=== PATIENT | male | born 1985 | race Caucasian/White ===

== ENCOUNTER 2020-06-26 17:48 | Emergency (ER) | payer MEDICAID, SELFPAY ==
[2020-06-26 17:56] VITALS: BP 128/73; BP 136/70; PULSE 133; PULSE 138; RESP 14; TEMP 36.6; O2SAT 91; O2SAT 98; BMI 28.4
[2020-06-26 18:03] VITALS: BP 128/73; PULSE 133; RESP 14; TEMP 36.6; O2SAT 91
--- NOTE | 2020-06-26 18:32 | ED_ITS ---
HPI - General Adult General Chief complaint: Overdose Stated complaint: ?OVERDOSE,FOUND OUTSIDE Time Seen by Provider: 06/26/20 18:18 Source: patient and RN notes reviewed Mode of arrival: EMS Limitations: no limitations History of Present Illness HPI narrative: 34-year-old male who was brought to the emergency department for evaluation of altered mental status. The patient states that he lives in shaking pain he came to [facility] to get some drugs. He states that he smoked crack cocaine and used 4 bags of heroin. The person that he was with got concerned that the patient passed out and appeared to be unresponsive so he called 911. The patient who activated 911 did not stay on the scene but did point to the 1st responders in the direction of where the patient was passed out. The patient was lethargic but arousable, he did not receive any Narcan from the 1st responders and it is unclear if he received any Narcan from the witness on the scene. The patient states that he has a history bingeing poly substances including heroin and cocaine. He states that he has not used heroin in over 8 years. At the time of my evaluation, the patient is awake but slightly lethargic, he was able to answer questions without any difficulty. He had no respiratory distress, he was tachycardic. Related Data Allergies Allergy/AdvReac Type Severity Reaction Status Date / Time No Known Allergies Allergy Verified 06/26/20 18:38 Review of Systems Review of Systems: Yes all other systems are reviewed and are negative Neurologic: Reports Abnormal speech present [facility] Past Medical History [facility] Narrative: Past medical history significant for testicular cancer with right orchiectomy, no chemotherapy, hepatitis-C treated in the past, cholecystectomy. The patient states that he does smoke 1/2 pack of cigarettes per day times 16 years, he occasionally drinks alcohol and had a very small amount of alcohol to drink today, he does use drugs, heroin and cocaine. Social History Social History Alcohol intake: current Smoking Status: Current every day smoker Use of substances other than those prescribed or required for medical reasons: Yes Substance Use Type: Crack/Cocaine and Heroin Substance Use Frequency: Daily Advance Directives: No Advance Directives Information Provided: Yes Physical Exam Vital Signs: Vital Signs: Last Vital Signs Temp 98.2 F 06/26/20 21:30 Pulse 108 H 06/26/20 21:30 Resp 13 06/26/20 21:30 BP 113/70 06/26/20 21:30 Pulse Ox 98 06/26/20 21:30 Body Mass Index 28.4 Const: General: cooperative and intoxicated appearing (Patient appears high and slightly lethargic) Nutritional Appearance: well nourished Orientation/consciousness: oriented to person and oriented to place Limitations: no limitations HENMT: Head: Yes normal to inspection, Yes normocephalic and Yes atraumatic Ears: external ears normal General nose exam: Normal external nose present Face and sinus: Yes normal facial exam Mouth: Normal oral and palatal mucosa present Throat: Yes posterior oropharynx normal Eyes: Periorbital: periorbital findings normal Eyelids: Yes eyelids normal Conjunctivae: conjunctivae normal Sclerae: sclerae normal Corneas: corneas normal Pupils: Equal, round and reactive pupils present Direct Ophthalmoscopy: normal light reflex Neck: Neck: Yes full ROM, Yes no lymphadenopathy, Yes no meningeal signs, Yes trachea midline and Yes supple Chest: Chest palpation & inspection: normal inspection of the chest and normal palpation of entire chest wall Resp: Effort & Inspection: normal respiratory effort and able to speak in complete sentences Auscultation: clear to auscultation bilaterally Cardio: Rate: regular rate and tachycardic Rhythm: regular rhythm Heart sounds: S1 normal heart sound present, S2 normal heart sound present and no murmurs GI: Inspection: Yes normal to inspection Palpation (GI): Soft to palpation, nontender, no guarding, not rigid and No hepatosplenomegaly present : General: Yes no CVA tenderness Back/Spine/Pelvis: Back: no CVA tenderness Cervical Spine: normal cervical lordosis Thoracic/Lumbar Spine: thoracic and lumbar spine normal to inspection Skin: Lesions: no lesions Rashes: no rashes Wounds: no wounds Neuro: General: oriented to person, oriented to place and no meningeal signs Cranial nerves: Yes CN's II-XII intact bilaterally and Yes Equal, round and reactive pupils present Cognition (Neuro): normal cognition Speech: Abnormal speech present Motor exam (neuro): 5/5 motor strength present throughout Extrem: General: Yes normal to inspection and Yes full ROM Psych: Appearance: well kempt Mental Status: mental status grossly normal Speech and movement: Normal speech and movement present Affect: Other affect and mood findings present (Appears high from narcotics) Attitude: cooperative Thought process: Normal thought process present Thought content: Normal thought content present Course Course Course Narrative: 34-year-old male with a history of polysubstance abuse who was brought to the emergency department for evaluation of altered level of consciousness after using crack cocaine and injecting 4 bags of heroin. The patient appears high, is slightly lethargic but was able to answer questions without any difficulty. The patient will be monitored here in the emergency department for 2-4 hours until he metabolized his the drugs that he took prior to coming to the emergency department. 5: The patient is awake and alert, I did contact the patient's mother and she states that she can come and pick the patient up. The patient will be discharged in the care of his mother. The patient's mother also stated that the patient can pay for a cab home if she is unable to pick him up which I think is appropriate as well. Discharge Plan Discharge Clinical Impression: Cocaine use disorder, Opiate abuse, episodic Opiate overdose Qualifiers: Encounter type: initial encounter Injury intent: accidental or unintentional Qualified Code(s): T40.601A - Poisoning by unspecified narcotics, accidental (unintentional), initial encounter Patient Disposition: Home, Self-Care Instructions: Narcotic Use Disorder (ED) Additional Instructions: Based on what happened to you today, I suspect that you may have accidentally overdosed on too much heroin or you may have gotten fentanyl instead of heroin. You did not receive any Narcan today by the emergency department or by the 1st responders. We are sending you home with intranasal Narcan, please read the instructions, if you decide to use narcotics again you should make sure you bring the Narcan with you and make sure that there is someone around who is sober/not using drugs and can admimister the intra Narcan in the event that you would stop breathing. We observed you for approximately 4 hours and at this time your sober/awake enough to go home. You were seen by one of our crisis/addiction coaches and they did give you information to follow up with in the event that you want to get some help with your narcotic use disorder. Follow-up with your doctor in 2 days. Please return to the emergency department if your symptoms get worse or if you develop any symptoms that are concerning to you.
--- NOTE | 2020-06-26 18:32 | MHC.RECOVSUP ---
? Reason for consult: Overdose o Current location: ED5 o Identified substance use concern: Heroin - Support ? Intervention: o Community resources provided o Harm reduction discussion ? Plan: o Patient to follow up with HF after discharge ? Additional information: Patient came to the ED For a OD. Patient stated that he was clean for 6 years and relapse and he goes to meeting on zoom but its not enough. Patient refused MAT But was very interested in [facility] and [facility].
[2020-06-26 18:39] VITALS: BP 116/85; PULSE 124; RESP 14; TEMP 36.8; O2SAT 98
[2020-06-26 20:34] VITALS: BP 109/71; PULSE 109; RESP 15; O2SAT 97
[2020-06-26 21:30] VITALS: BP 113/70; PULSE 108; RESP 13; TEMP 36.8; O2SAT 98
[2020-06-26] MEDS: Naloxone HCl Nasal TAKE HOME 4 MG SPRAY NOSTRILALT (21:54)
--- NOTE | 2020-06-26 22:34 | PC.NURSE ---
all cardiac equipment removed. piv discontinued. awaiting a ride. given narcan for home and discharge aurea
== END 2020-06-27 00:42 | disposition home or self-care (01) ==
PROVIDERS: Emergency Provider Emergency Medicine Emergency Medical Services; PCP Family Medicine
DX: T40.601A Poisoning by unspecified narcotics, accidental (unintentional), initial encounter (principal); R40.4 Transient alteration of awareness; Y92.410 Unspecified street and highway as the place of occurrence of the external cause; F14.10 Cocaine abuse, uncomplicated; F11.10 Opioid abuse, uncomplicated; F17.210 Nicotine dependence, cigarettes, uncomplicated; Z85.47 Personal history of malignant neoplasm of testis
CPT/HCPCS: 99284; 99285

== ENCOUNTER 2022-03-12 08:33 | Outpatient (REF) | payer OTHER, SELFPAY ==
--- NOTE | ~2022-03-12 | US_ITS ---
EXAMINATION: US ABDOMEN COMPLETE CLINICAL INFORMATION: Right-sided abdominal pain. COMPARISON: None TECHNIQUE: Real-time imaging of the abdominal viscera. FINDINGS: PANCREAS: Visualized portions unremarkable ABDOMINAL AORTA: Visualized portions unremarkable. INFERIOR VENA CAVA: Visualized portions unremarkable. LIVER: Unremarkable. GALLBLADDER: Status post cholecystectomy. COMMON BILE DUCT: Common hepatic duct measures up to 0.7 cm. The visualized common bile duct measures up to 0.3 cm. No intraluminal abnormality. RIGHT KIDNEY: 9.9 cm. Unremarkable. LEFT KIDNEY: 10.5 cm. Unremarkable. SPLEEN: 10.4 cm. Unremarkable. FREE FLUID: None. US/US abdomen complete IMPRESSION: Unremarkable abdominal ultrasound in a patient status post cholecystectomy.
== END 2022-03-12 08:34 | disposition home or self-care (01) ==
LOC: HO.HMGCX 08:33
PROVIDERS: PCP Nurse Practitioner Family; Visit Provider Nurse Practitioner Family
DX: R10.31 Right lower quadrant pain (principal)
CPT/HCPCS: 76700

== ENCOUNTER 2023-04-15 09:50 | Outpatient (AMB) | payer OTHER, SELFPAY ==
[2023-04-15 09:51] VITALS: BP 122/70; PULSE 82; O2SAT 100; BMI 25.5
--- NOTE | 2023-04-15 09:51 | MHC.PC.OV ---
Vital Signs 04/15/23 09:51 Height 5 ft 6 in Weight 158 lb BMI 25.5 BP 122/70 Blood Pressure Location Lt brachial Position Sitting Pulse 82 Pulse Source Pulse Oximeter Pulse Oximetry (%) 100 Oxygen Delivery Method Room Air Intake Visit Reasons: Annual Exam Intake Note: Patient is here today for a physical. Software [employer] Required: No Allergies codiene Allergy (Severe, Uncoded 04/15/23 10:11) Stomach Upset Medication List - Last Reconciled 04/15/23 by VINNIE Cuellar buprenorphine ER (Sublocade) mg subcut .monthly clomipramine 225 mg (3 x 75 mg) PO DAILY 30 days Tobacco use date assessed: 04/15/23 Dental Screening Dental Screen Date: 04/15/23 Did you have a dental visit in the last 12 months?: No Did you have a dental problem in the last 6 months where you did not have access to dental care?: No HPI Annual Exam HPI Details Patient is a 37-year-old male who presents today for physical exam. Medical history significant for depression, OCD, anxiety, polysubstance abuse-on Sublocade. Today we discussed patient's need for tetanus vaccine, he would like to hold off. Reports with upper back pain for the past couple months, reports starting seeing chiropractor and takes [id number] ibuprofen or Tylenol with some improvement in pain. No shortness of breath or chest pain. Would like referral to Psychiatry for his mental health. [facility] Medical History RLQ abdominal pain Encounter to establish care History of hepatitis C Testicular cancer Polysubstance abuse Depression Surgical History Hx of cholecystectomy Family History Father Diabetes Mother No problems noted. Other Substance use disorder Social History Housing: House Alcohol intake: current Patient Tobacco Use Status: Current everyday Tobacco user Tobacco use type: Cigarette Cigarettes Per Day: 6 e-Cigarette/Vaping Use: Never Used Second Hand Smoke Exposure: Yes Substance Use Type: Crack/Cocaine and Heroin service: No Current occupational status: employed Cognitive needs: No Hearing needs: No Vision needs: No Questionnaire PHQ-9 Over the last 2 weeks, how often have you been bothered by any of the following problems? 1. Little interest or pleasure in doing things: nearly every day 2. Feeling down, depressed, or hopeless: nearly every day 3. Trouble falling or staying asleep, or sleeping too much: not at all 4. Feeling tired or having little energy: nearly every day 5. Poor appetite or overeating: not at all 6. Feeling bad about yourself - or that you are a failure or have let yourself or your family down: several days 7. Trouble concentrating on things, such as reading the newspaper or watching television: not at all 8. Moving or speaking so slowly that other people could have noticed. Or the opposite - being so fidgety or restless that you have been moving around a lot more than usual: not at all 9. Thoughts that you would be better off or of hurting yourself in some way: several days Total score: 11 Depression Screening Interpretation: Positive Depression Screening Follow-up: Existing condition and In treatment Depression Screening Done: Yes [id number] - PHQ-9 Billing: Yes Source: Developed by Drs. Shayan Dover, Anum Ojeda, Chidi Jett and colleagues, with an educational mian from [employer]. Thrive Questionnaire Date Thrive assessed: 04/09/22 AUDIT C Alcohol Use Questionnaire (AUDIT-C) 1. How often do you have a drink containing alcohol?: Never 3. How often do you have six or more drinks on one occasion?: Never Total Score: 0 Score Reviewed/Action Taken: No LILIANE-7 AMB Questionnaire LILIANE-7 Date LILIANE - 7 assessed: 04/15/23 Feeling nervous, anxious, or on edge: 3 = Nearly every day Not being able to stop or control worryin = Nearly every day Worrying too much about different things: 0 = Not at all Trouble relaxin = Not at all Being so restless that it is hard to sit still: 0 = Not at all Becoming easily annoyed or irritable: 0 = Not at all Feeling afraid as if something awful might happen: 0 = Not at all Total LILIANE-7 score (0-4 normal; 5-9 mild; 10-14 moderate; 15-21 severe): 6 Source: Developed by Drs. Shayan Dover, Anum Ojeda, Chidi Jett and colleagues, with an educational mian from [employer]. LILIANE-7 Assessment Billing LILIANE-7 Assessment Tool: LILIANE-7 Assessment 82113 Review of Systems Const Denies body aches, Denies chills, Denies fever(s) and Denies headache(s) Eyes Denies change in vision ENT Denies dizziness, Denies otalgia, Denies headache(s), Denies nasal discharge, Denies sinus pain and Denies sore throat Card Denies chest pain, Denies edema, Denies lightheadedness and Denies dyspnea Resp Denies chest congestion, Denies cough and Denies dyspnea GI Denies abdominal pain, Denies constipation, Denies diarrhea, Denies nausea and Denies vomiting Denies difficulty urinating and Denies dysuria Musc Reports back pain and Denies myalgias Skin/Breast Denies lesions and Denies rash Neuro Denies dizziness and Denies headache(s) Physical exam (Primary Care) Vital Signs: Last Vital Signs Pulse 82 04/15/23 09:51 BP 122/70 04/15/23 09:51 Pulse Ox 100 04/15/23 09:51 Oxygen Delivery Method Room Air 04/15/23 09:51 BMI result Body Mass Index 25.5 Tobacco/Smoking Status: Tobacco use Status Tobacco use date assessed 04/15/23 04/15/23 09:59 Patient Tobacco Use Status Current everyday Tobacco 04/15/23 09:59 Tobacco use type Cigarette 04/15/23 09:59 e-Cigarette/Vaping Use Never Used 04/15/23 09:59 PHQ-9: PHQ-9 Score PHQ-9: Total score 11 04/15/23 09:59 Depression Screening Interpretation: Positive Depression Screening Follow-up: Existing condition and In treatment Thrive Assessment: Date of Thrive Assessment Date Thrive assessed 04/09/22 04/15/23 09:59 Const General: cooperative and no acute distress Orientation/consciousness: patient oriented x3 HENMT Head: Yes normocephalic and Yes atraumatic Ears: TM's normal bilaterally Face and sinus: Yes sinuses nontender Mouth: oropharynx normal and moist mucous membranes Throat: Yes posterior oropharynx normal Eyes General: appearance normal, both eyes and all related structures Pupils: Equal, round and reactive pupils present EOM: EOMs intact bilaterally Neck Neck: Yes normal visual inspection, Yes full ROM and Yes no lymphadenopathy Thyroid: Thyroid normal Resp Effort & Inspection: normal respiratory effort and able to speak in complete sentences Auscultation: clear to auscultation bilaterally, no crackles, no rales, no rhonchi and no wheezes Cardio Rate: regular rate Rhythm: regular rhythm Heart sounds: S1 normal heart sound present, S2 normal heart sound present and no murmurs GI Palpation (GI): Soft to palpation, not firm, nontender, no guarding, not rigid and no hepatosplenomegaly Auscultation: normal bowel sounds General: No CVA tenderness Back/Spine/Pelvis Back: No CVA tenderness Skin General skin exam: no rashes or lesions noted Neuro General: patient oriented x3 Cranial nerves: Yes Equal, round and reactive pupils present Gait exam (Neuro): Normal gait present Extrem General: Yes full ROM and No edema Office Procedures Flu Questionnaire Does the patient have a severe egg allergy?: No Does the patient have severe life threatening allergies?: No Does the patient have a fever or illness today?: No Has the patient ever had Guillain-[place] Syndrome?: No Has the patient ever had any past reaction to a flu shot?: No Immunizations flu vacc [id number] 6mos up(PF) 60 mcg(15 mcgx4)/0.5 mL IM syringe Performing Provider: VINNIE Cuellar Performing Location: [facility] Administered by: PRASHANT Hinds on 04/15/23 10:01 Dose Route Admin Location Dispensed Lot Number Expiration Date [facility] [employer]ellite Installation Technician 0.5 mL IM Left Deltoid 0.5 mL [id number] 11/29/23 [id number] [employer] VIS Given Date VIS Provided VIS Publication Date 04/15/23 Single Vaccine 21 Eligibility Eligibility Date Funding Source Not [facility] Eligible 04/15/23 Private Assessment and Plan Assessment & Plan (1) Polysubstance abuse: Comment: history of heroin and cocaine abuse, last used 2019 Code(s): F19.10 - Other psychoactive substance abuse, uncomplicated Plan: Continue to follow-up with MD in [place] who prescribes Sublocade (2) Anxiety: Code(s): F41.9 - Anxiety disorder, unspecified Plan: Patient will call his therapist in [place] for an appointment (3) OCD (obsessive compulsive disorder): Code(s): F42.9 - Obsessive-compulsive disorder, unspecified Plan: Patient will call his therapist in [place] for an appointment Stable with clomipramine 225 mg daily (4) Depression: Code(s): F32.A - Depression, unspecified Plan: Patient will call his therapist in [place] for an appointment Psychiatry referral (5) Adult general medical exam: Comment: Covid-19 REBECCA Haynes. Code(s): Z00.00 - Encounter for general adult medical examination without abnormal findings Orders: Orders Comprehensive [place]. Panel Fast Today Z00.00 - Encounter for general adult medical examination without abnormal findings Influenza [id number] Immunization Today Z23 - Encounter for immunization TSH reflex Free T4 Today Z00.00 - Encounter for general adult medical examination without abnormal findings Lipid Panel Today Z00.00 - Encounter for general adult medical examination without abnormal findings Complete Blood Count Auto Diff Today Z00.00 - Encounter for general adult medical examination without abnormal findings Referrals Psychiatry Referral F32.A - Depression, unspecified, F41.9 - Anxiety disorder, unspecified, F42.9 - Obsessive-compulsive disorder, unspecified Medications: New clomipramine 225 mg (3 x 75 mg) PO DAILY 30 days 90 caps 2RF F42.9 - Obsessive-compulsive disorder, unspecified Coding Level of Care Code Est Pt Prev Care 18-39y([id number]) Diagnoses Polysubstance abuse F19.10 Anxiety F41.9 OCD (obsessive compulsive disorder) F42.9 Depression F32.A Adult general medical exam Z00.00 Additional Codes LILIANE-7 Assessment Billing - LILIANE-7 Assessment Tool: LILIANE-7 Assessment [id number] ([id number])
== END 2023-04-15 10:30 | disposition home or self-care (01) ==
PROVIDERS: Visit Provider Nurse Practitioner Family
DX: Z00.00 Encounter for general adult medical examination without abnormal findings (principal); F19.10 Other psychoactive substance abuse, uncomplicated; F41.9 Anxiety disorder, unspecified; F42.9 Obsessive-compulsive disorder, unspecified; F32.A Depression, unspecified; Z23 Encounter for immunization
CPT/HCPCS: 90471; 90686; 96127; 99395

== ENCOUNTER 2023-06-08 12:32 | Outpatient (AMB) | payer OTHER, SELFPAY ==
--- NOTE | 2023-06-08 13:07 | MHC.PC.OV ---
Vital Signs 06/08/23 13:09 06/08/23 13:15 Height 5 ft 6 in Weight 165 lb 8 oz BMI 26.7 BP 138/90 H 110/72 Blood Pressure Location Lt brachial Lt brachial Position Sitting Sitting Pulse 91 Pulse Source Pulse Oximeter Pulse Oximetry (%) 98 Oxygen Delivery Method Room Air Intake Visit Reasons: Back pain Intake Note: Patient is here to follow up on upper right back pain. Club Director Required: No Program Officer: Not Required per policy Accompanied by: Self / Same As Patient Allergies codiene Allergy (Severe, Uncoded 06/08/23 13:43) Stomach Upset Medication List - Last Reconciled 06/08/23 by Say Narvaez MD buprenorphine ER (Sublocade) mg subcut .monthly clomipramine 225 mg (3 x 75 mg) PO DAILY 30 days Tobacco use date assessed: 06/08/23 Dental Screening Dental Screen Date: 06/08/23 Did you have a dental visit in the last 12 months?: No Did you have a dental problem in the last 6 months where you did not have access to dental care?: No Was dental information given to patient?: No HPI Back pain HPI Details 37-year-old male presents to the office for a sick visit. Patient is complaining of upper back pain which started last year. According to the patient, he was in a [place] from [place] through [place]. As a part of the rituals, he was sleeping on the floor at night. Symptoms started with upper and lower back pain. Patient left the monastery in January. Most of his pain symptoms resolved except for the nagging pain in the upper right shoulder. 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 He has taken no medications for it. Patient has history of OCD and substance use disorder. [facility] Medical History RLQ abdominal pain Encounter to establish care History of hepatitis C Testicular cancer Polysubstance abuse Depression Surgical History Hx of cholecystectomy Family History Father Diabetes Mother No problems noted. Other Substance use disorder Social History (Reviewed 06/08/23 @ 13:07 by SO Goodson Housing: House Alcohol intake: current Patient Tobacco Use Status: Current everyday Tobacco user Tobacco use type: Cigarette Cigarettes Per Day: 6 e-Cigarette/Vaping Use: Never Used Second Hand Smoke Exposure: Yes Substance Use Type: Crack/Cocaine and Heroin service: No Current occupational status: employed Cognitive needs: No Hearing needs: No Vision needs: No Questionnaire PHQ-9 Over the last 2 weeks, how often have you been bothered by any of the following problems? 1. Little interest or pleasure in doing things: not at all 2. Feeling down, depressed, or hopeless: nearly every day 3. Trouble falling or staying asleep, or sleeping too much: not at all 4. Feeling tired or having little energy: more than half the days 5. Poor appetite or overeating: not at all 6. Feeling bad about yourself - or that you are a failure or have let yourself or your family down: several days 7. Trouble concentrating on things, such as reading the newspaper or watching television: nearly every day 8. Moving or speaking so slowly that other people could have noticed. Or the opposite - being so fidgety or restless that you have been moving around a lot more than usual: not at all 9. Thoughts that you would be better off or of hurting yourself in some way: several days Total score: 10 Source: Developed by Drs. Shayan Dover, Anum Ojeda, Chidi Jett and colleagues, with an educational mian from [employer]. Thrive Questionnaire Date Thrive assessed: 06/08/23 I am a: Patient What is your living situation today?: I have a steady place to live Within the past 12 months, did the food you bought not last and you didn't have the money to get more?: Never true Within the past 12 months, did you worry whether your food would run out before you got money to buy more?: Never true Do you have trouble paying for medicines?: No Do you have trouble getting transportation to medical appointments?: No Do you have trouble paying your heating and electricity bill?: No Do you have trouble taking care of your child, family member or friend?: No Do you have trouble with day-to-day activities such as bathing, preparing meals, shopping, managing finances, etc.?: No Are you currently unemployed and looking for a job?: No Are you interested in more education?: No Currently or been in a relationship where the following occur: no concerns reported AUDIT C Alcohol Use Questionnaire (AUDIT-C) 1. How often do you have a drink containing alcohol?: Never Total Score: 0 LILIANE-7 AMB Questionnaire LILIANE-7 Date LILIANE - 7 assessed: 06/08/23 Feeling nervous, anxious, or on edge: 3 = Nearly every day Not being able to stop or control worryin = Nearly every day Worrying too much about different things: 3 = Nearly every day Trouble relaxin = Nearly every day Being so restless that it is hard to sit still: 1 = Several days Becoming easily annoyed or irritable: 1 = Several days Feeling afraid as if something awful might happen: 3 = Nearly every day Total LILIANE-7 score (0-4 normal; 5-9 mild; 10-14 moderate; 15-21 severe): 17 Source: Developed by Drs. Shayan Dover, Anum Ojeda, Chidi Jett and colleagues, with an educational mian from [employer]. Physical exam (Primary Care) Vital Signs: Last Vital Signs Pulse 91 06/08/23 13:09 BP 110/72 06/08/23 13:15 Pulse Ox 98 06/08/23 13:09 Oxygen Delivery Method Room Air 06/08/23 13:09 BMI result Body Mass Index 26.7 Tobacco/Smoking Status: Tobacco use Status Tobacco use date assessed 06/08/23 06/08/23 13:16 Patient Tobacco Use Status Current everyday Tobacco 06/08/23 13:16 Tobacco use type Cigarette 06/08/23 13:16 e-Cigarette/Vaping Use Never Used 06/08/23 13:16 PHQ-9: PHQ-9 Score PHQ-9: Total score 10 06/08/23 13:16 Thrive Assessment: Date of Thrive Assessment Date Thrive assessed 06/08/23 06/08/23 13:16 Currently or been in a relationship where the following occur: no concerns reported Const General: cooperative and healthy appearing Nutritional Appearance: well nourished Orientation/consciousness: patient oriented x3 Limitations: no limitations HENMT Head: Yes normal to inspection Eyes General: appearance normal, both eyes and all related structures Neck Neck: Yes normal visual inspection Chest Chest palpation & inspection: normal palpation of entire chest wall Resp Effort & Inspection: normal respiratory effort Back/Spine/Pelvis Other: Back: Upper: Discomfort along the medial edge of the right scapula. Pain is worse on lifting the arm over the shoulder level. Neuro General: patient oriented x3 Assessment and Plan Assessment & Plan (1) Upper back pain: Code(s): M54.9 - Dorsalgia, unspecified Plan: Chest x-ray has been ordered. Anti-inflammatory and muscle relaxants called in. Patient was advised to use a heating pad. Physical therapy has been suggested. If symptoms do not improve to follow-up here. Coding Level of Care Code Est Pt Level 4 (20671) Diagnoses Upper back pain M54.9
[2023-06-08 13:09] VITALS: BP 138/90; PULSE 91; O2SAT 98; BMI 26.7
[2023-06-08 13:15] VITALS: BP 110/72
== END 2023-06-08 13:36 | disposition home or self-care (01) ==
PROVIDERS: PCP Internal Medicine; Visit Provider Internal Medicine
DX: M54.9 Dorsalgia, unspecified (principal)
CPT/HCPCS: 99214

== ENCOUNTER 2023-06-08 14:13 | Outpatient (REF) | payer OTHER, SELFPAY ==
--- NOTE | ~2023-06-08 | XR_ITS ---
EXAMINATION: XR CHEST CLINICAL INFORMATION: Dorsalgia, unspecified COMPARISON: None available. TECHNIQUE: 2 views of the chest were obtained. 14:25 FINDINGS: No significant abnormality is noted involving the heart, lungs, mediastinum or soft tissues. No acute osseous abnormality. The height of the thoracic vertebral bodies is well-maintained. XR/XR chest 2V IMPRESSION: Unremarkable examination.
== END 2023-06-08 14:14 | disposition home or self-care (01) ==
LOC: HO.XRAY 14:13
PROVIDERS: Visit Provider Internal Medicine
DX: M54.9 Dorsalgia, unspecified (principal)
CPT/HCPCS: 71046

== ENCOUNTER 2023-06-18 08:24 | Outpatient (AMB) | payer OTHER, SELFPAY ==
[2023-06-18 08:34] VITALS: BP 126/84; PULSE 75; O2SAT 99; BMI 26.5
--- NOTE | 2023-06-18 08:34 | A.OFFPC_ITS ---
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 cholecalciferol (vitamin D3) 25 mcg PO DAILY clomipramine 225 mg (3 x 75 mg) PO DAILY 30 days cyclobenzaprine 10 mg PO BEDTIME meloxicam 15 mg PO DAILY Tobacco use date assessed: 06/18/23 Dental Screening Dental Screen Date: 06/18/23 Did you have a dental visit in the last 12 months?: No Did you have a dental problem in the last 6 months where you did not have access to dental care?: No HPI Back pain/Damari Qiukin Transfer 2 HPI0 Details 37-year-old male 1st time being seen hav ing a history of obsessive- compulsive disorder with polysubstance abuse coming in to be seen. Review of the notes in 01/19/2024 was seen by my colleague for an upper back pain that started last year. November, R upper back radiates to R arm and R neck area deny fall or trauma- has been exercising , PT yoga and not getting relieved ., no fevers, cough no rash , no N no v. hx of rock climbing before [facility] Medical History (Updated 06/18/23 @ 09:01 by Ryan Gage MD) History of hepatitis C Testicular cancer Polysubstance abuse Depression Surgical History (Updated 06/18/23 @ 08:50 by Ryan Gage MD) History of orchiectomy Hx of cholecystectomy Family History Father Diabetes Mother No problems noted. Other Substance use disorder Social History (Updated 06/18/23 @ 08:51 by Ryan Gage MD) Housing: House Alcohol intake: current Comment: once Q 2 weeks 3 drinks Patient Tobacco Use Status: Current everyday Tobacco user Tobacco use type: Cigarette Cigarettes Per Day: 6 Years Smoked: roll - 8 aday - e-Cigarette/Vaping Use: Never Used Second Hand Smoke Exposure: Yes Substance Use Type: Crack/Cocaine and Heroin service: No Current occupational status: employed Cognitive needs: No Hearing needs: No Vision needs: No Questionnaire Thrive Questionnaire Date Thrive assessed: 06/08/23 AUDIT C Alcohol Use Questionnaire (AUDIT-C) 1. How often do you have a drink containing alcohol?: Never 2. How many drinks containing alcohol do you have on a typical day when you are drinking?: 1 or 2 3. How often do you have six or more drinks on one occasion?: Never Total Score: 0 LILIANE-7 AMB Questionnaire LILIANE-7 Date LILIANE - 7 assessed: 06/08/23 Source: Developed by Drs. Shayan Dover, Anum Ojeda, Chidi Jett and colleagues, with an educational mian from [employer]. Physical exam (Primary Care) Vital Signs: Last Vital Signs Pulse 75 06/18/23 08:34 BP 126/84 06/18/23 08:34 Pulse Ox 99 06/18/23 08:34 Oxygen Delivery Method Room Air 06/18/23 08:34 BMI result Body Mass Index 26.5 Tobacco/Smoking Status: Tobacco use Status Tobacco use date assessed 06/18/23 06/18/23 08:38 Patient Tobacco Use Status Current everyday Tobacco 06/18/23 08:38 Tobacco use type Cigarette 06/18/23 08:38 e-Cigarette/Vaping Use Never Used 06/18/23 08:38 Thrive Assessment: Date of Thrive Assessment Date Thrive assessed 06/08/23 06/18/23 08:38 Const General: alert; No acute distress Eyes Conjunctivae: conjunctivae normal Resp Auscultation: clear to auscultation bilaterally Cardio Rate: regular rate Rhythm: regular rhythm GI Inspection: Yes normal to inspection Back/Spine/Pelvis Back/spine/pelvis image: 2 1. tender area, no redness or swelling Extrem General: Yes normal to inspection and No edema Assessment and Plan Assessment & Plan (1) OCD (obsessive compulsive disorder): Comment: Psychiatry [facility]- Psych wellness group once a month, therapist Marco once a week (06/2023) Code(s): F42.9 - Obsessive-compulsive disorder, unspecified Plan: continue with counselling and therapy (2) Polysubstance abuse: Comment: history of heroin and cocaine abuse, last used 2020 Code(s): F19.10 - Other psychoactive substance abuse, uncomplicated Plan: Continue to follow-up with (3) Upper back pain: Code(s): M54.9 - Dorsalgia, unspecified (4) Generalized anxiety disorder: Code(s): F41.1 - Generalized anxiety disorder (5) Testicular cancer: Comment: right orchiectomy 2008 Pt will call for appt with Dr. Govea at [facility] [place] Code(s): C62.90 - Malignant neoplasm of unspecified testis, unspecified whether descended or undescended (6) Pain of right scapula: Code(s): M89.8X1 - Other specified disorders of bone, shoulder Plan: referral to ortho to be done, xray requested, continue with PT Orders: Orders 2 XR scapula RT Today M89.8X1 - Other specified disorders of bone, shoulder Referrals 2 Orthopedics Referral M89.8X1 - Other specified disorders of bone, shoulder Medications: Refilled 2 cyclobenzaprine 10 mg PO BEDTIME 14 tabs 0RF M89.8X1 - Other specified disorders of bone, shoulder meloxicam 15 mg PO DAILY 14 tabs 0RF M89.8X1 - Other specified disorders of bone, shoulder Coding Level of Care Code Est Pt Level 4 (57271) Diagnoses OCD (obsessive compulsive disorder) F42.9 Polysubstance abuse F19.10 Upper back pain M54.9 Generalized anxiety disorder F41.1 Testicular cancer C62.90 Pain of right scapula M89.8X1
== END 2023-06-18 09:08 | disposition home or self-care (01) ==
PROVIDERS: PCP Internal Medicine; Visit Provider Internal Medicine
DX: F42.9 Obsessive-compulsive disorder, unspecified (principal); F19.10 Other psychoactive substance abuse, uncomplicated; C62.90 Malignant neoplasm of unspecified testis, unspecified whether descended or undescended; M54.9 Dorsalgia, unspecified; F41.1 Generalized anxiety disorder; M89.8X1 Other specified disorders of bone, shoulder
CPT/HCPCS: 99214

== ENCOUNTER 2023-06-18 09:12 | Outpatient (REF) | payer OTHER, SELFPAY ==
--- NOTE | ~2023-06-18 | XR_ITS ---
EXAMINATION: XR SCAPULA, RIGHT CLINICAL INFORMATION: Pain. COMPARISON: None available. TECHNIQUE: AP and scapular Y views of the right scapula. FINDINGS: The bones and soft tissues are normal. No scapular fracture. Glenohumeral and acromioclavicular alignment is normal. XR/XR scapula RT IMPRESSION: Normal right scapula.
== END 2023-06-18 09:13 | disposition home or self-care (01) ==
LOC: HO.XRAY 09:12
PROVIDERS: PCP Internal Medicine; Visit Provider Internal Medicine
DX: M89.8X1 Other specified disorders of bone, shoulder (principal)
CPT/HCPCS: 73010

== ENCOUNTER 2023-07-02 10:55 | Outpatient (AMB) | payer OTHER, SELFPAY ==
--- NOTE | 2023-07-02 11:01 | A.OFFVIS_ITS ---
Intake Vital Signs 07/02/23 11:02 Height 5 ft 6 in Weight 154 lb BMI 24.9 Intake Visit Reasons: New Pt - Right Shoulder Pain Intake Note: Hira is a 37 year old male who presents today with complaints of right shoulder pain. patient reports that he injured his shoulder in november, he was at a monastary from July to January - while here he was sleeping on the floor and this caused some significant pain in the back and shoulder. His pain is felt all the time, pain increased with increased activity with reaching and lifting. 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 Pain radiates to the shoulder and down the arm. has tried PT, Yoga and OTC medication with no relief. Allergies codiene Allergy (Severe, Uncoded 06/18/23 08:35) Stomach Upset HPI New Pt - Right Shoulder Pain HPI Details Hira is a 37 year old man who presents with complaints of right shoulder pain. He says he has pain in his shoulder with daily activity, worse with reaching, lifting, and overhead activities. He says he was sleeping on the floor of a monastery from July-January, which caused pain in his back & shoulders. 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 He says his pain radiates down his arm and is present at night as well. [facility] Medical History History of hepatitis C Testicular cancer Polysubstance abuse Depression Surgical History History of orchiectomy Hx of cholecystectomy Family History Father Diabetes Mother No problems noted. Other Substance use disorder Social History Housing: House Alcohol intake: current Comment: once Q 2 weeks 3 drinks Patient Tobacco Use Status: Current everyday Tobacco user Tobacco use type: Cigarette Cigarettes Per Day: 6 Years Smoked: roll - 8 aday - e-Cigarette/Vaping Use: Never Used Second Hand Smoke Exposure: Yes Substance Use Type: Crack/Cocaine and Heroin service: No Current occupational status: employed Cognitive needs: No Hearing needs: No Vision needs: No Review of Systems Const All systems reviewed & are unremarkable except as noted in HPI and below Physical Exam Vital Signs: BMI result Body Mass Index 24.9 Const General: no acute distress, alert and awake Orientation/consciousness: patient oriented x3 HEENT Head: Yes normocephalic and Yes atraumatic Eyes EOM: EOMs intact bilaterally Resp Effort & Inspection: normal respiratory effort and able to speak in complete sentences Cardio Jugular venous distension: no JVD Skin General skin exam: turgor normal Rashes: no rashes Neuro General: patient oriented x3 Extrem Other: Full ROM 4+/5 EC + [facility] Appearance: grossly normal Affect: normal affect Attitude: cooperative Results Reviewed Results Reviewed: I personally reviewed relevant radiographs. unremarkable shoulder radiographs Assessment & Plan Assessment & Plan (1) Internal derangement of right shoulder: Code(s): M24.811 - Other specific joint derangements of right shoulder, not elsewhere cla ssified Plan: RIght shoulder is weak with signs and symptoms of SLAP pathology. He is otherwise healthy. THis has been ongoing for > one year and he cannot engage in recreational activities and has pain at work. Non operative management has not benefitted him and I recommend MRI. Plan Prepared for Daniel Oates MD by Yaya Torrez, medical office representative, on 07/02/23 at 11:24 AM, EST. Orders: Orders MR shoulder RT w con Today M24.811 - Other specific joint derangements of right shoulder, not elsewhere classified Coding Level of Care Code New Pt Level 4 (07876) Diagnoses Internal derangement of right shoulder M24.811
[2023-07-02 11:02] VITALS: BMI 24.9
== END 2023-07-02 11:25 | disposition home or self-care (01) ==
PROVIDERS: PCP Internal Medicine; Visit Provider Orthopaedic Surgery
DX: M24.811 Other specific joint derangements of right shoulder, not elsewhere classified (principal)
CPT/HCPCS: 99204

== ENCOUNTER → 2023-07-02 10:55 | Outpatient (BNVA) | payer OTHER, SELFPAY | PROVIDERS: PCP Internal Medicine; Visit Provider Orthopaedic Surgery | DX: M24.811 Other specific joint derangements of right shoulder, not elsewhere classified (principal) | CPT/HCPCS: 99202 ==

== ENCOUNTER 2023-08-19 14:40 | Outpatient (AMB) | payer OTHER, SELFPAY ==
--- NOTE | 2023-08-19 14:41 | MHC.PC.OV ---
Vital Signs 08/19/23 14:48 Height 5 ft 6 in Weight 166 lb 2 oz BMI 26.8 BP 120/90 H Blood Pressure Location Lt brachial Position Sitting Respiration 16 Pulse 68 Pulse Source Pulse Oximeter Pulse Oximetry (%) 100 Oxygen Delivery Method Room Air Intake Visit Reasons: F/u on OCD Intake Note: Pt is here for lower back pain and is requesting Ortho referral for possible Cortisone shot. Custom Stock Maker Required: No Accompanied by: Self / Same As Patient Allergies codiene Allergy (Severe, Uncoded 08/19/23 15:59) Stomach Upset Medication List - Last Reconciled 08/19/23 by Antonio Moreno PA-C buprenorphine ER (Sublocade) mg subcut cholecalciferol (vitamin D3) 25 mcg PO ONCE PRN clomipramine 225 mg (3 x 75 mg) PO DAILY 30 days cyclobenzaprine 10 mg PO BEDTIME Tobacco use date assessed: 06/18/23 Dental Screening Dental Screen Date: 08/19/23 Did you have a dental visit in the last 12 months?: No Did you have a dental problem in the last 6 months where you did not have access to dental care?: No Was dental information given to patient?: Yes HPI F/u on OCD HPI Details Patient is a 37-year-old male here today for transfer care visit. Patient has a past medical history significant for OCD, substance use disorder, history of hepatitis-C, depression. Concern--> reports having upper mid back pain and neck pain that radiates down his right upper extremity. He has done physical therapy and chiropractics that have not been particularly helpful. Does use cyclobenzaprine on as needed basis. He is interested in seeing a auto painter for a injection. .. Patient's history opiate use disorder (in remission): He is followed by a Suboxone clinic in his continued on Sublocade for the past few years. .. He does admit to high risk homosexual behavior few times a year. He recently went to [facility] due to fears of HIV contraction. He reports he was tested for HIV and was negative while at the ER. He was started on post exposure antiviral. He is interested in PREP. . History hepatitis-C: Has been treated in cleared virus per patient. .. [facility] Medical History (Updated 08/20/23 @ 07:32 by Antonio Moreno PA-C) History of hepatitis C Testicular cancer Polysubstance abuse Depression Surgical History History of orchiectomy Hx of cholecystectomy Family History Father Diabetes Mother No problems noted. 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 Shayan Dover, Anum Ojeda, Chidi Jett and colleagues, with an educational mian from [employer]. Review of Systems Const Denies headache(s) Eyes Denies loss of vision ENT Denies vertigo, Denies dizziness, Denies headache(s) and Denies sore throat Card Denies chest pain, Denies leg edema and Denies lightheadedness Resp Denies cough, Denies hemoptysis and Denies wheezing GI Denies abdominal pain, Denies melena, Denies constipation, Denies diarrhea and Denies vomiting Denies dysuria, Denies urinary frequency and Denies urinary urgency Musc Denies arthralgias, Denies joint swelling, Denies numbness and Denies tingling Neuro Denies Abnormal speech present, Denies behavioral changes, Denies vertigo, Denies dizziness, Denies headache(s), Denies loss of vision, Denies memory loss, Denies numbness and Denies tingling Psych Denies anxiety, Denies behavioral changes, Denies depression, Denies memory loss and Denies panic attacks Audie/Lymph Denies easy bleeding and Denies easy bruising Aller/Immun Denies wheezing Physical exam (Primary Care) Vital Signs: Last Vital Signs Pulse 68 08/19/23 14:48 Resp 16 08/19/23 14:48 BP 120/90 H 08/19/23 14:48 Pulse Ox 100 08/19/23 14:48 Oxygen Delivery Method Room Air 08/19/23 14:48 BMI result Body Mass Index 26.8 Tobacco/Smoking Status: Tobacco use Status Tobacco use date assessed 06/18/23 08/19/23 14:41 Patient Tobacco Use Status Current everyday Tobacco 08/19/23 16:08 Tobacco use type Cigarette 08/19/23 16:08 e-Cigarette/Vaping Use Never Used 08/19/23 16:08 Thrive Assessment: Date of Thrive Assessment Date Thrive assessed 06/08/23 08/19/23 14:41 Const General: healthy appearing, no acute distress, alert and awake Nutritional Appearance: well nourished Orientation/consciousness: oriented to person, oriented to place and oriented to time HENMT Ears: TM's normal bilaterally General nose exam: Normal nasal mucous membranes and turbinates present Eyes Conjunctivae: conjunctivae normal Sclerae: sclerae normal Pupils: Equal, round and reactive pupils present Neck Neck: Yes no lymphadenopathy and Yes no JVD Thyroid: Thyroid normal Carotids: no bruits Resp Effort & Inspection: normal respiratory effort and not tachypneic Auscultation: no crackles, no rales, no rhonchi and no wheezes Cardio Rate: regular rate Rhythm: regular rhythm Heart sounds: no murmurs and normal S1 and S2 GI Palpation (GI): Soft to palpation, nontender, no hepatomegaly and no splenomegaly Auscultation: normal bowel sounds Skin General skin exam: no rashes or lesions noted and dry skin Neuro General: oriented to person, oriented to place and oriented to time Cranial nerves: Yes Equal, round and reactive pupils present Speech: No Abnormal speech present Gait exam (Neuro): Normal gait present Motor exam (neuro): no tremor noted Extrem Right upper extremity: full ROM Left upper extremity: full ROM Right lower extremity: full ROM; no edema Left lower extremity: full ROM; no edema Psych Mental Status: mental status grossly normal Speech and movement: Normal speech and movement present Affect: normal affect Attitude: cooperative Thought process: Normal thought process present Assessment and Plan Assessment & Plan (1) OCD (obsessive compulsive disorder): Comment: Psychiatry [facility] wellness group once a month, therapist Marco once a week (06/2023) Code(s): F42.9 - Obsessive-compulsive disorder, unspecified Qualifiers: Obsessive-compulsive disorder type: unspecified Qualified Code(s): F42.9 - Obsessive-compulsive disorder, unspecified Plan: Patient followed by psychiatrist who manages his mental health medication. His OCD has been fairly well controlled with his current mental health medications. (2) Polysubstance abuse: Comment: history of heroin and cocaine abuse, last used 2020 Code(s): F19.10 - Other psychoactive substance abuse, uncomplicated Plan: Has been sober from heroin and cocaine over the last 3 years. Does follow a Suboxone clinic in [place]. (3) Depression: Code(s): F32.A - Depression, unspecified Qualifiers: Active/Remission status: currently active Major depression episode severity: mild Major depression recurrence: recurrent Depression Type: major depressive disorder Qualified Code(s): F33.0 - Major depressive disorder, recurrent, mild Plan: Patient has an existing condition of depression. Does follow a mental health therapist and a psychiatrist who manages his mental health medications. (4) Thoracic spine pain: Code(s): M54.6 - Pain in thoracic spine (5) Cervical radiculitis: Code(s): M54.12 - Radiculopathy, cervical region (6) Screening for diabetes mellitus (DM): Code(s): Z13.1 - Encounter for screening for diabetes mellitus (7) High risk sexual behavior: Code(s): Z72.51 - High risk heterosexual behavior Qualifiers: High risk sexual behavior type: homosexual Qualified Code(s): Z72.52 - High risk homosexual behavior Plan: Recently patient exposed ? HIV due to high-risk sexual behavior. He would like post exposure prophylaxis. Orders: Orders Liver Panel 08/19/23 Z72.52 - High risk homosexual behavior HIV Ab/Ag 08/19/23 Z11.3 - Encounter for screening for infections with a predominantly sexual mode of transmission, Z72.52 - High risk homosexual behavior HIV Ab/Ag 08/19/23 Z11.3 - Encounter for screening for infections with a predominantly sexual mode of transmission, Z72.52 - High risk homosexual behavior Liver Panel 08/19/23 Z72.52 - High risk homosexual behavior Comprehensive [facility]ady. Panel Fast 08/19/23 Z13.1 - Encounter for screening for diabetes mellitus HIV Ab/Ag 08/19/23 Z11.3 - Encounter for screening for infections with a predominantly sexual mode of transmission, Z72.52 - High risk homosexual behavior HIV Ab/Ag 08/19/23 Z11.3 - Encounter for screening for infections with a predominantly sexual mode of transmission, Z72.52 - High risk homosexual behavior HIV Ab/Ag 08/19/23 Z11.3 - Encounter for screening for infections with a predominantly sexual mode of transmission, Z72.52 - High risk homosexual behavior HIV Ab/Ag 08/19/23 Z11.3 - Encounter for screening for infections with a predominantly sexual mode of transmission, Z72.52 - High risk homosexual behavior HIV Ab/Ag 08/19/23 Z11.3 - Encounter for screening for infections with a predominantly sexual mode of transmission, Z72.52 - High risk homosexual behavior Liver Panel 08/19/23 Z72.52 - High risk homosexual behavior Liver Panel 08/19/23 Z72.52 - High risk homosexual behavior Liver Panel 08/19/23 Z72.52 - High risk homosexual behavior Liver Panel 08/19/23 Z72.52 - High risk homosexual behavior Liver Panel 08/19/23 Z72.52 - High risk homosexual behavior Hepatitis C Viral Load Today Z72.52 - High risk homosexual behavior, Z86.19 - Personal history of other infectious and parasitic diseases Hepatitis C Genotype Today Z72.52 - High risk homosexual behavior, Z86.19 - Personal history of other infectious and parasitic diseases Referrals Pain Management Referral M54.12 - Radiculopathy, cervical region Medications: New dolutegravir 50 mg PO DAILY 28 tabs 0RF 28 days Z20.6 - Contact with and (suspected) exposure to human immunodeficiency virus [HIV] Changed From cyclobenzaprine 10 mg PO BEDTIME M89.8X1 - Other specified disorders of bone, shoulder To cyclobenzaprine 10 mg PO BEDTIME 14 days 14 tabs 0RF M89.8X1 - Other specified disorders of bone, shoulder Coding Level of Care Code Est Pt Level 4 (32547) Diagnoses Obsessive-compulsive disorder, unspecified type F42.9 Obsessive-compulsive disorder type: unspecified Polysubstance abuse F19.10 Mild episode of recurrent major depressive disorder F33.0 Active/Remission status: currently active Major depression episode severity: mild Major depression recurrence: recurrent Depression Type: major depressive disorder Thoracic spine pain M54.6 Cervical radiculitis M54.12 Screening for diabetes mellitus (DM) Z13.1 High risk homosexual behavior Z72.52 High risk sexual behavior type: homosexual
[2023-08-19 14:48] VITALS: BP 120/90; PULSE 68; RESP 16; O2SAT 100; BMI 26.8
== END 2023-08-19 16:30 | disposition home or self-care (01) ==
PROVIDERS: PCP Internal Medicine; Visit Provider Physician Assistant
DX: F42.9 Obsessive-compulsive disorder, unspecified (principal); F19.10 Other psychoactive substance abuse, uncomplicated; F33.0 Major depressive disorder, recurrent, mild; M54.6 Pain in thoracic spine; M54.12 Radiculopathy, cervical region; Z13.1 Encounter for screening for diabetes mellitus; Z72.52 High risk homosexual behavior
CPT/HCPCS: 99214

== ENCOUNTER 2023-08-20 13:00 | Outpatient (RCR) | payer OTHER, SELFPAY ==
--- NOTE | 2023-06-18 13:56 | MHC.PT.EP ---
[facility] [place] [facility] [place] [facility] [place] [facility] [address] Bubba Kahn [address] [phone] F: [phone] F: [phone] F: [phone] F: [phone] Physical Therapy Plan of Care Date of Evaluation: 06/18/23 Date of Surgery: n/a Diagnosis: upper back pain Assessment: Patient is a 37 year old male presenting to PT referral for upper back pain but actually localizes it to his R shoulder blade area. Pt reports onset of pain began November 2022 due to sleeping on a floor. He presents today with impairments in pain, ROM, shoulder strength, periscap strength, posture. 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 Pt expresses assisted goal of reducing pain, and is motivated to work towards this in PT. Clinical presentation today is most consistent with signs and sx associated with R shoulder blade pain and pt will benefit from skilled PT 2 week x 4 weeks to address the following problems and impairments noted upon evaluation: pain, ROM, shoulder strength, periscap strength, posture. These problems limit the patient with the following functional activities: work, reaching, lifting. The prescribed treatment plan of care is medically necessary. Co-morbidities of hepatits c, hx testicular CA, hx polysubstance abuse were identified and taken into considerations of plan of care. Pt was educated on HEP, role of PT, prognosis, POC. Frequency and Duration: The patient will be seen 2 x week x 4 weeks Short Term Goals: Pt will demonstrate R shoulder ROM with min to no pain in available range in 2 weeks. Pt will demonstrate improved periscap strength in 2 weeks for improved scapular stability. Snf Goals: Pt will demonstrate ability to work a full day with min to no pain in 4 weeks for return to PLOF. Pt will demonstrate ability to reach and lift with min to no pain in 4 weeks for ability to complete household duties. Treatment Plan: Modalities to reduce pain, spasms and effusion. Manual therapy to restore motion and function. Therapeutic exercise to improve strength and flexibility. Neuromuscular re-education for posture and balance. Therapeutic activities to return to functional activities of daily living. Electronically signed by: Nelly Sheila, PT, DPT, ATC Please sign and return to therapist. Thank you for your referral.
--- NOTE | 2023-09-04 06:54 | MHC.PT.DC ---
[facility] Office [place] Office [place] Office [address] [phone] F: [phone] F: [phone] F: [phone] F: [phone] Physical Therapy Discharge Report Diagnosis: upper back pain Date of Surgery: n/a Date of Evaluation: 06/18/23 Date of Discharge: 09/04/23 Treatments to Date: 9 Cancellations to Date: 1 No Shows to Date: 0 Discharge Status: Improved Function Independent with HEP Discharge Summary: Pt cancelled final appointment due to conflict. Plan was to d/c at that appointment and therefore to be d/c. Electronically signed by: Nelly Sosa, PT, DPT, ATC Please sign and return to therapist. Thank you for your referral.
== END 2023-09-04 06:54 | disposition home or self-care (01) ==
LOC: HO.PTCHIC 13:00
PROVIDERS: PCP Internal Medicine; Visit Provider Internal Medicine
DX: M54.9 Dorsalgia, unspecified (principal)
CPT/HCPCS: 97110; 97161

== ENCOUNTER 2023-08-26 12:50 | Outpatient (AMB) | payer OTHER, SELFPAY ==
--- NOTE | 2023-08-26 13:02 | MHC.OFFVIS ---
Intake Vital Signs 08/26/23 13:08 Height 5 ft 6 in Weight 167 lb BMI 27.0 BP 120/88 Blood Pressure Location Lt brachial Position Sitting Respiration 16 Pulse 80 Pulse Source Pulse Oximeter Pulse Oximetry (%) 96 Oxygen Delivery Method Room Air Intake Visit Reasons: Radiculopathy, cervical region Intake Note: Patient comes in for initial visit was referred by primary care. Reports pain 5/10. Allergies codiene Allergy (Severe, Uncoded 08/19/23 15:59) Stomach Upset HPI HPI Comments History of Present Illness Details Hira is very pleasant 38 years old gentleman who presents in my office with complains on pain in the right posterior shoulder blade with radiation of the pain into the right upper extremity. He reports no pain in the neck. He reports that pain started in November 2022 when he slept [place], he wanted to become a monk but later on reconsider that. He reports that he can not sleep normally because of his pain can not do activities of daily living he can not take care of himself he can not function normally. 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 He reports that weather changes in movements aggravate his pain, oral medications including ibuprofen makes his pain slightly better. Pain is most severe in morning at the start of the work day and less severe during the night. He reports the best relief from his pain he receives when he puts the tennis ball against the area between his thoracic spine and right shoulder blade and rotate this ball against the wall. In terms of tissue damage he reports his pain is pulsing, throbbing, pounding, pinching, cramping, crushing, tugging, pulling, wrenching, dull, sore, hurting, her aching, tiring, exhausting, fearful, fried food, terrifying, spreading, radiating, piercing, tight, squeezing, tearing. He had x-ray of the shoulder area and CT scan of the shoulder area which is not available for me those were done in [facility]. He is actually scheduled to go for MRI of the right shoulder tomorrow. He had physical therapy for his pain he has not sure whether he received benefit from this he received massage therapy with minimal improvement and he tried acupuncture without any improvement. He never received any injections. Past medical history significant for fatigue obsessive-compulsive disorder history of alcohol and illicit drug problems history of hepatitis-C treated with interferon and history of digestive problems. Surgical history removal of left test testicle 2008 and removal gallbladder in 2013 social history he is working individual works full-time smokes cigarettes half a pack a day drink alcohol 1 or 2 beers couple of times a week drinks caffeinated beverages 2 cups of coffee a day and admits history of cocaine methamphetamines and heroin abuse. [facility] Medical History (Updated 08/26/23 @ 13:56 by Delta Marshall MD) History of hepatitis C Testicular cancer Polysubstance abuse Depression Surgical History History of orchiectomy Hx of cholecystectomy Family History Father Diabetes Mother No problems noted. 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 Cognitive needs: No Hearing needs: No Vision needs: No Review of Systems Const Reports no additional complaints Eyes Reports no additional complaints Card Reports no additional complaints Resp Reports no additional complaints GI Reports no additional complaints Reports no additional complaints Musc Reports as per HPI Neuro Reports no additional complaints Psych Reports as per HPI Physical Exam Vital Signs: Last Vital Signs Pulse 80 08/26/23 13:08 Resp 16 08/26/23 13:08 BP 120/88 08/26/23 13:08 Pulse Ox 96 08/26/23 13:08 Oxygen Delivery Method Room Air 08/26/23 13:08 BMI result Body Mass Index 27.0 Const General: no acute distress, alert and awake Orientation/consciousness: patient oriented x3 HEENT Head: Yes normocephalic and Yes atraumatic Eyes EOM: EOMs intact bilaterally Neck Other: Full range of motion of the cervical spine. Flexing head forward and flexing had backwards do not affect the pain in the shoulder or in the arm. Rotating head side ways or tilting had sideways also does not affect the pain. Lhermitte test is negative. Spurling test is negative. Axial extension is negative. No tenderness on palpation in paraspinal spinal region cervical spine. Tenderness on palpation in the projection of right rhomboid muscle more of the major rhomboid and less on the minor rhomboid side. Valsalva maneuver is negative for pain increase. Neck: Yes full ROM Resp Effort & Inspection: normal respiratory effort and able to speak in complete sentences Cardio Jugular venous distension: no JVD Skin General skin exam: turgor normal Rashes: no rashes Neuro General: patient oriented x3 Extrem Other: Full ROM 4+/5 EC + Bradford's Psych Appearance: grossly normal Affect: normal affect Attitude: cooperative Assessment & Plan Assessment & Plan (1) Internal derangement of right shoulder: Code(s): M24.811 - Other specific joint derangements of right shoulder, not elsewhere classified (2) Myofascial pain syndrome: Code(s): M79.18 - Myalgia, other site Plan Unlikely patient has any problems with his cervical spine. He does not report any neck pain or involvement of the neck in his symptoms. The patient visited Dr. Oates and labral tear suspected. Myofascial pain syndrome could be also considered specifically in rhomboid major and rhomboids minor on the right. I will wait the results of the MRI. I will see him in 10 days. I can not perform trigger point injection into the right rhomboid major and rhomboid minor muscles. Coding Level of Care Code New Pt Level 3 (68564) Diagnoses Internal derangement of right shoulder M24.811 Myofascial pain syndrome M79.18
[2023-08-26 13:08] VITALS: BP 120/88; PULSE 80; RESP 16; O2SAT 96; BMI 27.0
== END 2023-08-26 13:28 | disposition home or self-care (01) ==
PROVIDERS: PCP Physician Assistant; Referring Provider Physician Assistant; Visit Provider Anesthesiology
DX: M24.811 Other specific joint derangements of right shoulder, not elsewhere classified (principal); M79.18 Myalgia, other site
CPT/HCPCS: 99203

== ENCOUNTER → 2023-08-26 12:50 | Outpatient (BNVA) | payer OTHER, SELFPAY | PROVIDERS: PCP Physician Assistant; Referring Provider Physician Assistant; Visit Provider Anesthesiology | DX: M24.811 Other specific joint derangements of right shoulder, not elsewhere classified (principal); M79.18 Myalgia, other site | CPT/HCPCS: 99202 ==

== ENCOUNTER → 2023-08-27 13:10 | Outpatient (BNV) | payer OTHER, SELFPAY | PROVIDERS: PCP Internal Medicine; Visit Provider Physician Assistant Surgical | DX: M24.811 Other specific joint derangements of right shoulder, not elsewhere classified (principal) | CPT/HCPCS: 23350; 73040 ==

== ENCOUNTER 2023-08-27 13:29 | Outpatient (REF) | payer OTHER, SELFPAY ==
--- NOTE | ~2023-08-27 | FL_ITS ---
RIGHT SHOULDER ARTHROGRAM INDICATIONS: Right shoulder pain. Intra-articular gadolinium injection is needed prior to MRI. PROCEDURE: Risks and benefits and possible complications were discussed with the patient and the consent form was signed. The patient was placed supine on the fluoroscopy table. The right shoulder was prepped and draped in normal sterile fashion. 1% buffered lidocaine was used for anesthesia. A 22-gauge spinal needle was used to access the shoulder joint. Intra-articular position of the needle within the shoulder joint was verified using 3 cc of Omnipaque 300. A total of 10 mL of gadolinium/saline (1:200) contrast mixture was then injected into the shoulder joint. The needle was then removed and a Band-Aid was applied to the injection site. The patient tolerated the procedure well and was sent to MRI. There were no immediate complications. Spot view demonstrates no evidence of full-thickness rotator cuff tear. No significant arthritic changes are noted. No narrowing of the subacromial space is evident. FL/FL arthrogram shoulder RT IMPRESSION: Successful fluoroscopic guided intra-articular instillation of dilute gadolinium into the right shoulder joint. Patient will undergo subsequent right shoulder MRI. The procedure was performed by shoulder Hunter Cruz PA-C, and directly supervised by Dr. Law.
--- NOTE | ~2023-08-27 | MR_ITS ---
EXAMINATION: MR SHOULDER WITH CONTRAST, RIGHT CLINICAL INFORMATION: Internal derangement of the right shoulder. Right-sided shoulder pain, scapular pain. COMPARISON: None available. TECHNIQUE: MRI of the shoulder was performed following the intra-articular administration of a dilute gadolinium-containing solution (arthrogram) on a high-field scanner. Additional images of the shoulder were obtained with the shoulder in abduction and external rotation (ABER). FINDINGS: ROTATOR CUFF: Intact. No muscle atrophy or fatty infiltration. BICEPS: Normal. CORACOACROMIAL ARCH: The undersurface of the acromion is curved with no subacromial spur. Mild acromioclavicular osteoarthritis. LABRUM/CAPSULE: There is a longitudinal labral tear propagating from the anterosuperior 1 o'clock position through the posterosuperior 10 o'clock position without appreciable involvement of the biceps tendon, most consistent with a type II SLAP tear. Contrast material and fluid within the joint capsule anteriorly is favored to be injection related. No discrete capsular tear. No appreciable tear of the anterior band inferior glenohumeral ligament as seen on ABER images. GLENOHUMERAL JOINT/MARROW: No fracture or malalignment. There is cortical irregularity and minimal subcortical edema/cystic change at the humeral head posterosuperiorly near the greater tuberosity. Articular cartilage appears normal. Humeral head is appropriately situated at the glenoid. No loose bodies. MR/MR shoulder RT w con IMPRESSION: 1. Type II SLAP tear. No appreciable capsular tear, though the injection-related contrast material in the anterior capsule slightly limits assessment in this region. 2. Mild acromioclavicular osteoarthritis. 3. Intact rotator cuff.
[2023-08-28] MEDS: gadobutroL 2 ML VIAL IVPUSH (13:10)
== END 2023-08-27 13:30 | disposition home or self-care (01) ==
LOC: HO.XRAY 13:29
PROVIDERS: PCP Internal Medicine; Visit Provider Orthopaedic Surgery
DX: M24.811 Other specific joint derangements of right shoulder, not elsewhere classified (principal)
CPT/HCPCS: 23350; 73040; 73222; A9585

== ENCOUNTER 2023-09-09 13:41 | Outpatient (AMB) | payer OTHER, SELFPAY ==
--- NOTE | 2023-09-09 13:43 | A.OFFVIS_ITS ---
Intake Vital Signs 09/09/23 13:48 Height 5 ft 6 in Weight 167 lb 4 oz BMI 27.0 BP 130/78 Blood Pressure Location Lt brachial Position Sitting Respiration 16 Pulse 96 Pulse Source Pulse Oximeter Pulse Oximetry (%) 100 Oxygen Delivery Method Room Air Intake Visit Reasons: MRI Follow Up Intake Note: Patient comes in to discuss MRI results. Reports pain 10. Allergies codiene Allergy (Severe, Uncoded 08/19/23 15:59) Stomach Upset HPI HPI Comments History of Present Illness Details Hira is back in my office for the follow-up of the MRI. That MRI was ordered by Dr. Oates. It demonstrated labral tear. To differentiate whether or not his pain between the spine and shoulder blade related to this labral tear I offered him to perform diagnostic right shoulder injection with no steroids. I also sent him to Dr. Oates for the follow-up to decide whether or not the patient will be a subject of any labral repair, he reports that he feels instability on the right shoulder and sensation of humeral head going out of the socket. Prior: very pleasant 38 years old gentleman who presents in my office with complains on pain in the right posterior shoulder blade with radiation of the pain into the right upper extremity. He reports no pain in the neck. He reports that pain started in November 2022 when [place], he wanted to become a monk but later on reconsider that. He reports the best relief from his pain he receives when he puts the tennis ball against the area between his thoracic spine and right shoulder blade and rotate this ball against the wall. He had x-ray of the shoulder area and CT scan of the shoulder area which is not available for me those were done in [facility]. He had physical therapy for his pain he has not sure whether he received benefit from this he received massage therapy with minimal improvement and he tried acupuncture without any improvement. He never received any injections. Past medical history significant for fatigue obsessive-compulsive disorder history of alcohol and illicit drug problems history of hepatitis-C treated with interferon and history of digestive problems. Surgical history removal of left test testicle 2008 and removal gallbladder in 2013 social history he is working individual works full-time [employer] [facility] Medical History (Updated 09/09/23 @ 14:24 by Delta Marshall MD) History of hepatitis C Testicular cancer Polysubstance abuse Depression Surgical History History of orchiectomy Hx of cholecystectomy Family History Father Diabetes Mother No problems noted. Other Substance use disorder Social History (Updated 08/19/23 @ 16:08 by Antonio Moreno PA-C) Housing: House Alcohol intake: current Comment: once Q 2 weeks 3 drinks Patient Tobacco Use Status: Current everyday Tobacco user Tobacco use type: Cigarette Cigarettes Per Day: 7 Years Smoked: roll - 8 aday - e-Cigarette/Vaping Use: Never Used Second Hand Smoke Exposure: Yes Substance Use Type: Crack/Cocaine and Heroin service: No Current occupational status: employed Current occupation: [employer] Cognitive needs: No Hearing needs: No Vision needs: No Review of Systems Const All systems reviewed & are unremarkable except as noted in HPI and below Physical Exam Vital Signs: Last Vital Signs Pulse 96 09/09/23 13:48 Resp 16 09/09/23 13:48 BP 130/78 09/09/23 13:48 Pulse Ox 100 09/09/23 13:48 Oxygen Delivery Method Room Air 09/09/23 13:48 BMI result Body Mass Index 27.0 Const General: no acute distress, alert and awake Orientation/consciousness: patient oriented x3 HEENT Head: Yes normocephalic and Yes atraumatic Eyes EOM: EOMs intact bilaterally Neck Other: Full range of motion of the cervical spine. Flexing head forward and flexing had backwards do not affect the pain in the shoulder or in the arm. Rotating head side ways or tilting had sideways also does not affect the pain. Lhermitte test is negative. Spurling test is negative. Axial extension is negative. No tenderness on palpation in paraspinal spinal region cervical spine. Tenderness on palpation in the projection of right rhomboid muscle more of the major rhomboid and less on the minor rhomboid side. Valsalva maneuver is negative for pain increase. Neck: Yes full ROM Resp Effort & Inspection: normal respiratory effort and able to speak in complete sentences Cardio Jugular venous distension: no JVD Skin General skin exam: turgor normal Rashes: no rashes Neuro General: patient oriented x3 Extrem Other: Full ROM 4+/5 EC + [place] Appearance: grossly normal Affect: normal affect Attitude: cooperative Results Reviewed Results Reviewed: MR SHOULDER WITH CONTRAST, RIGHT CLINICAL INFORMATION: Internal derangement of the right shoulder. Right-sided shoulder pain, scapular pain. COMPARISON: None available. TECHNIQUE: MRI of the shoulder was performed following the intra-articular administration of a dilute gadolinium-containing solution (arthrogram) on a high-field scanner. Additional images of the shoulder were obtained with the shoulder in abduction and external rotation (ABER). FINDINGS: ROTATOR CUFF: Intact. No muscle atrophy or fatty infiltration. BICEPS: Normal. CORACOACROMIAL ARCH: The undersurface of the acromion is curved with no subacromial spur. Mild acromioclavicular osteoarthritis. LABRUM/CAPSULE: There is a longitudinal labral tear propagating from the anterosuperior 1 o'clock position through the posterosuperior 10 o'clock position without appreciable involvement of the biceps tendon, most consistent with a type II SLAP tear. Contrast material and fluid within the joint capsule anteriorly is favored to be injection related. No discrete capsular tear. No appreciable tear of the anterior band inferior glenohumeral ligament as seen on ABER images. GLENOHUMERAL JOINT/MARROW: No fracture or malalignment. There is cortical irregularity and minimal subcortical edema/cystic change at the humeral head posterosuperiorly near the greater tuberosity. Articular cartilage appears normal. Humeral head is appropriately situated at the glenoid. No loose bodies. IMPRESSION: 1. Type II SLAP tear. No appreciable capsular tear, though the injection-related contrast material in the anterior capsule slightly limits assessment in this region. 2. Mild acromioclavicular osteoarthritis. 3. Intact rotator cuff. Assessment & Plan Assessment & Plan (1) Internal derangement of right shoulder: Code(s): M24.811 - Other specific joint derangements of right shoulder, not elsewhere classified (2) Myofascial pain syndrome: Code(s): M79.18 - Myalgia, other site (3) Degenerative tear of glenoid labrum of right shoulder: Code(s): M24.111 - Other articular cartilage disorders, right shoulder (4) Right shoulder pain: Code(s): M25.511 - Pain in right shoulder Plan Unlikely patient has any problems with his cervical spine. He does not report any neck pain or involvement of the neck in his symptoms. The patient visited Dr. Oates and labral tear suspected. Myofascial pain syndrome could be also considered specifically in rhomboid major and rhomboids minor on the right. MRI demonstrated labral tear. However to differentiate whether his pain is coming from the shoulder or it is coming from the rhomboid muscle on the right I offer ed him to perform diagnostic intra-articular injection into the right shoulder. If this will not help his pain I will treat the pain in between his shoulder blade and spine as the chronic myositis/myofascial pain syndrome. If the injection into the shoulder will help his pain inappropriate extend to consider his shoulder joint as the pain generators I can not perform intra-articular shoulder injections. He was instructed to continue home exercise program after physical therapy. He can not take NSAIDs p.r.n. for his pain. Patient Instructions: I here by testify that I spent 35 minutes in conversation with this patient as well as evaluating his prior records, evaluating his diagnostic studies, communicating with orthopedic surgery and completing this note. Coding Level of Care Code Est Pt Level 4 (25235) Diagnoses Internal derangement of right shoulder M24.811 Myofascial pain syndrome M79.18 Degenerative tear of glenoid labrum of right shoulder M24.111 Right shoulder pain M25.511
[2023-09-09 13:48] VITALS: BP 130/78; PULSE 96; RESP 16; O2SAT 100; BMI 27.0
== END 2023-09-09 14:17 | disposition home or self-care (01) ==
PROVIDERS: PCP Physician Assistant; Visit Provider Anesthesiology
DX: M24.811 Other specific joint derangements of right shoulder, not elsewhere classified (principal); M79.18 Myalgia, other site; M24.111 Other articular cartilage disorders, right shoulder; M25.511 Pain in right shoulder
CPT/HCPCS: 99214

== ENCOUNTER → 2023-09-09 13:41 | Outpatient (BNVA) | payer OTHER, SELFPAY | PROVIDERS: PCP Physician Assistant; Visit Provider Anesthesiology | DX: M24.811 Other specific joint derangements of right shoulder, not elsewhere classified (principal); M79.18 Myalgia, other site; M24.111 Other articular cartilage disorders, right shoulder; M25.511 Pain in right shoulder | CPT/HCPCS: 99212 ==

== ENCOUNTER 2023-09-22 06:21 | Outpatient (REF) | payer OTHER, SELFPAY ==
--- NOTE | ~2023-09-22 | FL_ITS ---
EXAMINATION: XR FLUOROSCOPY WITH IMAGES CLINICAL INFORMATION: Pain in right shoulder COMPARISON: Right shoulder arthrogram 08/28/2023 TECHNIQUE: Fluoroscopy Supervised By: Dr. Marshall. Fluoroscopy Time: 0.2 minutes. Cumulative Dose: 0.566 mGy. DAP: 0.130 Gycm2. Images: 2. FINDINGS: The patient was placed in the prone position. 2 images demonstrate a needle and injection of contrast into the right glenohumeral joint. Please see Dr. Marshall's procedure note for full details. FL/FL guidance in treatment room IMPRESSION: Fluoroscopic guidance was provided for Dr. Marshall. Please see procedure note for full details.
== END 2023-09-22 06:22 | disposition home or self-care (01) ==
LOC: CF 06:21
PROVIDERS: Visit Provider Anesthesiology
DX: M24.811 Other specific joint derangements of right shoulder, not elsewhere classified (principal); M24.111 Other articular cartilage disorders, right shoulder; M79.18 Myalgia, other site
CPT/HCPCS: 20610; J2795; Q9967

== ENCOUNTER 2023-09-22 14:04 | Outpatient (AMB) | payer OTHER, SELFPAY ==
[2023-09-22 14:08] VITALS: BP 122/82; PULSE 16; RESP 16; O2SAT 100; BMI 27.0
--- NOTE | 2023-09-22 14:08 | MHC.OFFVIS ---
Vital Signs 09/22/23 14:08 09/22/23 14:59 Height 5 ft 6 in Weight 167 lb BMI 27.0 BP 122/82 128/74 Blood Pressure Location Lt brachial Lt brachial Position Sitting Sitting Respiration 16 18 Pulse 16 L 82 Pulse Source Pulse Oximeter Pulse Oximeter Pulse Oximetry (%) 100 98 Oxygen Delivery Method Room Air Room Air Comment Pre-Op Post-Op Intake Visit Reasons: RIGHT INTRA-ARTICULAR SHOULDER INJECTION Allergies codiene Allergy (Severe, Uncoded 08/19/23 15:59) Stomach Upset [facility] Medical History (Updated 09/09/23 @ 14:24 by Delta Marshall MD) History of hepatitis C Testicular cancer Polysubstance abuse Depression Surgical History History of orchiectomy Hx of cholecystectomy Family History Father Diabetes Mother No problems noted. 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 Cognitive needs: No Hearing needs: No Vision needs: No Physical Exam Vital Signs: Last Vital Signs Pulse 82 09/22/23 14:59 Resp 18 09/22/23 14:59 BP 128/74 09/22/23 14:59 Pulse Ox 98 09/22/23 14:59 Oxygen Delivery Method Room Air 09/22/23 14:59 BMI result Body Mass Index 27.0 Assessment & Plan Assessment & Plan (1) Internal derangement of right shoulder: Code(s): M24.811 - Other specific joint derangements of right shoulder, not elsewhere classified Category: Medical (2) Myofascial pain syndrome: Code(s): M79.18 - Myalgia, other site Category: Medical (3) Degenerative tear of glenoid labrum of right shoulder: Code(s): M24.111 - Other articular cartilage disorders, right shoulder Category: Medical (4) Right shoulder pain: Code(s): M25.511 - Pain in right shoulder Category: Medical Plan: Diagnostic right shoulder glenohumeral joint injection. Informed consent was explained thoroughly to the patient. All questions about benefits and risks for the procedure were answered. Patient came to the operating room and was positioned prone on the operating table with the pillow under the chest Time-out was performed delineating site and side of the procedure name minute of of the patient. The right shoulder right side of the neck and right upper back of the patient were prepped with ChloraPrep prepped and draped with sterile utility self adhesive towels. C-arm was brought over the operating field and sq picture of patient's glenohumeral joint was demonstrated on the screen. Superior medial portion of the joint was chosen as the target of the injection. Projection of the target to the skin was injected with small amount of lidocaine 2% 2 mL. After that 22 gauge 3 and 1/2 inch needle was driven to the left joint in tunnel vision fashion. When needle entered the joint capsule injection of the contrast was performed demonstrating intra-articular r spread of the contrast. After that 5 cc of ropivacaine 0.5% was injected into the right joint. Upon completion of the injections the needle was removed . Sterile dressing was applied. Upon completion of the injection patient was taken outside of the operating room to the recovery room where recovered uneventfully. Plan Unlikely patient has any problems with his cervical spine. He does not report any neck pain or involvement of the neck in his symptoms. The patient visited Dr. Oates and labral tear suspected. Myofascial pain syndrome could be also considered specifically in rhomboid major and rhomboids minor on the right. MRI demonstrated labral tear. However to differentiate whether his pain is coming from the shoulder or it is coming from the rhomboid muscle on the right I offered him to perform diagnostic intra-articular injection into the right shoulder. If this will not help his pain I will treat the pain in between his shoulder blade and spine as the chronic myositis/myofascial pain syndrome. If the injection into the shoulder will help his pain inappropriate extend to consider his shoulder joint as the pain generators I can not perform intra-articular shoulder injections. He was instructed to continue home exercise program after physical therapy. He can not take NSAIDs p.r.n. for his pain. Orders: Orders FL guidance in treatment room Today M25.511 - Pain in right shoulder Coding Level of Care Code Procedure Only Diagnoses Internal derangement of right shoulder M24.811 Myofascial pain syndrome M79.18 Degenerative tear of glenoid labrum of right shoulder M24.111 Right shoulder pain M25.511
[2023-09-22 14:59] VITALS: BP 128/74; PULSE 82; RESP 18; O2SAT 98
== END 2023-09-22 14:54 | disposition home or self-care (01) ==
LOC: HO.PMCPRC 14:04
PROVIDERS: PCP Physician Assistant; Visit Provider Anesthesiology
DX: M24.811 Other specific joint derangements of right shoulder, not elsewhere classified (principal); M79.18 Myalgia, other site; M24.111 Other articular cartilage disorders, right shoulder; M25.511 Pain in right shoulder
CPT/HCPCS: 20610; 77002

== ENCOUNTER 2023-10-01 12:41 | Outpatient (AMB) | payer OTHER, SELFPAY ==
--- NOTE | 2023-10-01 13:10 | MHC.OFFVIS ---
Vital Signs 10/01/23 13:12 Height 5 ft 6 in Weight 160 lb BMI 25.8 Handedness Right Intake Visit Reasons: ov- MRI review/ discuss urgery Intake Note: Hira is a 38 year old right hand dominant male who present today for an MRI follow up of his right shoulder. This pain is due to an injury from November 2022 when he was at the [facility] sleeping on the floor. Patient reports he is well and no longer having pain in his shoulder. Mri done 08/27/23: IMPRESSION: 1. Type II SLAP tear. No appreciable capsular tear, though the injection-related contrast material in the anterior capsule slightly limits assessment in this region. 2. Mild acromioclavicular osteoarthritis. 3. Intact rotator cuff. Allergies codeine Allergy (Severe, Verified 10/01/23 13:17) Stomach Upset HPI HPI ov- MRI review/ discuss urgery: Details: Hira is a 38 year old right hand dominant male who present today for an MRI follow up of his right shoulder. This pain is due to an injury from November 2022 when he was at the [facility] sleeping on the floor. Patient reports he is well and no longer having pain in his shoulder. [facility] Medical History History of hepatitis C Testicular cancer Polysubstance abuse Depression Surgical History History of orchiectomy Hx of cholecystectomy Family History Father Diabetes Mother No problems noted. Other Substance use disorder Social History Housing: House Alcohol intake: current Comment: once Q 2 weeks 3 drinks Patient Tobacco Use Status: Current everyday Tobacco user Tobacco use type: Cigarette Cigarettes Per Day: 7 Years Smoked: roll - 8 aday - e-Cigarette/Vaping Use: Never Used Second Hand Smoke Exposure: Yes Substance Use Type: Crack/Cocaine and Heroin service: No Current occupational status: employed Current occupation: [employer] Cognitive needs: No Hearing needs: No Vision needs: No Physical Exam Vital Signs: BMI result Body Mass Index 25.8 Const General: no acute distress, alert and awake Orientation/consciousness: patient oriented x3 HEENT Head: Yes normocephalic and Yes atraumatic Eyes EOM: EOMs intact bilaterally Resp Effort & Inspection: normal respiratory effort and able to speak in complete sentences Cardio Jugular venous distension: no JVD Skin General skin exam: turgor normal Rashes: no rashes Neuro General: patient oriented x3 Extrem Other: Full ROM 5/5 EC + [place] Appearance: grossly normal Affect: normal affect Attitude: cooperative Results Reviewed Results Reviewed: I personally reviewed the MR images. 1. Type II SLAP tear. No appreciable capsular tear, though the injection-related contrast material in the anterior capsule slightly limits assessment in this region. 2. Mild acromioclavicular osteoarthritis. 3. Intact rotator cuff. Assessment & Plan Assessment & Plan (1) Degenerative tear of glenoid labrum of right shoulder: Code(s): M24.111 - Other articular cartilage disorders, right shoulder Category: Medical Plan: SLAP tear right shoulder which is c/w patient exam and complaints. Intermittently bothersome but currently feels well. No treatment required unless pain worsens. Discussed with Hira and he will follow up as needed. Coding Level of Care Code Est Pt Level 4 (63256) Diagnoses Degenerative tear of glenoid labrum of right shoulder M24.111
[2023-10-01 13:12] VITALS: BMI 25.8
== END 2023-10-01 15:08 | disposition home or self-care (01) ==
PROVIDERS: PCP Physician Assistant; Visit Provider Orthopaedic Surgery
DX: M24.111 Other articular cartilage disorders, right shoulder (principal)
CPT/HCPCS: 99213

== ENCOUNTER → 2023-10-01 12:41 | Outpatient (BNVA) | payer OTHER, SELFPAY | PROVIDERS: PCP Physician Assistant; Visit Provider Orthopaedic Surgery | DX: M24.111 Other articular cartilage disorders, right shoulder (principal) | CPT/HCPCS: 99212 ==

== ENCOUNTER 2023-10-15 12:41 | Outpatient (AMB) | payer OTHER, SELFPAY ==
--- NOTE | 2023-10-15 12:53 | A.OFFVIS_ITS ---
Vital Signs 10/15/23 12:57 Height 5 ft 6 in Weight 163 lb 4 oz BMI 26.3 BP 134/88 Blood Pressure Location Lt brachial Position Sitting Respiration 14 Pulse 73 Pulse Source Pulse Oximeter Pulse Oximetry (%) 99 Oxygen Delivery Method Room Air Intake Visit Reasons: RIGHT INTRA-ARTICULAR SHOULDER INJECTION Intake Note: Patient comes in for post-appointment. Reports pain 1/10. Allergies codeine Allergy (Severe, Verified 10/15/23 12:57) Stomach Upset HPI Comments Details: Hira is back in my office 1 month after diagnostic right intra-articular shoulder injection he reports pain 1/10. He reports his pain is almost gone he reports very good mobility and activities of daily living. This was injection with no steroids. I told him that next appointment needs to be scheduled as needed in case his pain will come back. Labral tear right shoulder on the MRI. Dr. Oates does not want to do anything about this findings. Prior: very pleasant 38 years old gentleman who presents in my office with complains on pain in the right posterior shoulder blade with radiation of the pain into the right upper extremity. He reports no pain in the neck. He reports that pain started in November 2022 when he [place], he wanted to become a monk but later on reconsider that. He reports the best relief from his pain he receives when he puts the tennis ball against the area between his thoracic spine and right shoulder blade and rotate this ball against the wall. He had x-ray of the shoulder area and CT scan of the shoulder area which is not available for me those were done in [facility]. He had physical therapy for his pain he has not sure whether he received benefit from this he received massage therapy with minimal improvement and he tried acupuncture without any improvement. He never received any injections. Past medical history significant for fatigue obsessive-compulsive disorder history of alcohol and illicit drug problems history of hepatitis-C treated with interferon and history of digestive problems. Surgical history removal of left test testicle 2008 and removal gallbladder in 2013 social history he is working individual works full-time [employer] Medical History History of hepatitis C Testicular cancer Polysubstance abuse Depression Surgical History History of orchiectomy Hx of cholecystectomy Family History Father Diabetes Mother No problems noted. Other Substance use disorder Social History Housing: House Alcohol intake: current Comment: once Q 2 weeks 3 drinks Patient Tobacco Use Status: Current everyday Tobacco user Tobacco use type: Cigarette Cigarettes Per Day: 7 Years Smoked: roll - 8 aday - e-Cigarette/Vaping Use: Never Used Second Hand Smoke Exposure: Yes Substance Use Type: Crack/Cocaine and Heroin service: No Current occupational status: employed Current occupation: [employer] Cognitive needs: No Hearing needs: No Vision needs: No Review of Systems Const All systems reviewed & are unremarkable except as noted in HPI and below Physical Exam Const General: no acute distress, alert and awake Orientation/consciousness: patient oriented x3 HEENT Head: Yes normocephalic and Yes atraumatic Eyes EOM: EOMs intact bilaterally Neck Other: Full range of motion of the cervical spine. Flexing head forward and flexing had backwards do not affect the pain in the shoulder or in the arm. Rotating head side ways or tilting had sideways also does not affect the pain. Lhermitte test is negative. Spurling test is negative. Axial extension is negative. No tenderness on palpation in paraspinal spinal region cervical spine. Tenderness on palpation in the projection of right rhomboid muscle more of the major rhomboid and less on the minor rhomboid side. Valsalva maneuver is negative for pain increase. Neck: Yes full ROM Resp Effort & Inspection: normal respiratory effort and able to speak in complete sentences Cardio Jugular venous distension: no JVD Skin General skin exam: turgor normal Rashes: no rashes Neuro General: patient oriented x3 Extrem Other: Full ROM 4+/5 EC + [place] Appearance: grossly normal Affect: normal affect Attitude: cooperative Assessment & Plan Assessment & Plan (1) Internal derangement of right shoulder: Code(s): M24.811 - Other specific joint derangements of right shoulder, not elsewhere classified Category: Medical (2) Myofascial pain syndrome: Code(s): M79.18 - Myalgia, other site Category: Medical (3) Degenerative tear of glenoid labrum of right shoulder: Code(s): M24.111 - Other articular cartilage disorders, right shoulder Category: Medical (4) Right shoulder pain: Code(s): M25.511 - Pain in right shoulder Category: Medical Plan Unlikely patient has any problems with his cervical spine. Now this statement is supported by very successful right shoulder diagnostic injection. Patient reports 1 month of complete pain relief after injection of only - local anesthetic with no steroid . No new appointment is necessary unless patient wants to schedule an appointment. The patient visited Dr. Oates and labral tear suspected. MRI demonstrated labral tear. Coding Level of Care Code Est Pt Level 3 (62257) Diagnoses Internal derangement of right shoulder M24.811 Myofascial pain syndrome M79.18 Degenerative tear of glenoid labrum of right shoulder M24.111 Right shoulder pain M25.511
[2023-10-15 12:57] VITALS: BP 134/88; PULSE 73; RESP 14; O2SAT 99; BMI 26.3
== END 2023-10-15 13:00 | disposition home or self-care (01) ==
PROVIDERS: PCP Physician Assistant; Visit Provider Anesthesiology
DX: M24.811 Other specific joint derangements of right shoulder, not elsewhere classified (principal); M79.18 Myalgia, other site; M24.111 Other articular cartilage disorders, right shoulder; M25.511 Pain in right shoulder
CPT/HCPCS: 99213

== ENCOUNTER → 2023-10-15 12:41 | Outpatient (BNVA) | payer OTHER, SELFPAY | PROVIDERS: PCP Physician Assistant; Visit Provider Anesthesiology | DX: M24.811 Other specific joint derangements of right shoulder, not elsewhere classified (principal); M24.111 Other articular cartilage disorders, right shoulder; M25.511 Pain in right shoulder; M79.18 Myalgia, other site | CPT/HCPCS: 99212 ==

== ENCOUNTER 2023-11-11 14:54 | Outpatient (AMB) | payer OTHER, SELFPAY ==
--- NOTE | 2023-11-11 15:08 | MHC.PC.OV ---
Vital Signs 11/11/23 15:09 Height 5 ft 6 in Weight 160 lb BMI 25.8 BP 118/72 Blood Pressure Location Lt brachial Position Sitting Pulse 92 Pulse Source Pulse Oximeter Pulse Oximetry (%) 98 Oxygen Delivery Method Room Air Intake Visit Reasons: neck follow up Makeup Sales Consultant Required: No Accompanied by: Self / Same As Patient Allergies codeine Allergy (Severe, Verified 11/11/23 15:28) Stomach Upset Medication List - Last Reconciled 11/11/23 by Antonio Moreno PA-C buprenorphine ER (Sublocade) mg subcut clomipramine 225 mg (3 x 75 mg) PO DAILY 30 days cyclobenzaprine 10 mg PO BEDTIME PRN dolutegravir 50 mg PO DAILY 28 days Tobacco use date assessed: 06/18/23 Dental Screening Dental Screen Date: 08/19/23 HPI neck follow up HPI Details Patient is a 38 year male here today for follow-up visit. This is the 2nd time I am meeting this 38-year-old male with a past medical history significant for cervical radiculitis, OCD, depression and substance use disorder. Has been followed by pain management and Orthopedics for his neck and shoulder pains. He did not need any injections. Did get MRI of his shoulder that show a chronic tear though no intervention needed. [facility] Medical History History of hepatitis C Testicular cancer Polysubstance abuse Depression Surgical History History of orchiectomy Hx of cholecystectomy Family History Father Diabetes Mother No problems noted. 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 Shayan Dover, Anum Ojeda, Chidi Jett and colleagues, with an educational mian from [employer]. Review of Systems Const Denies headache(s) Eyes Denies loss of vision ENT Denies vertigo, Denies dizziness, Denies headache(s) and Denies sore throat Card Denies chest pain, Denies leg edema and Denies lightheadedness Resp Denies cough, Denies hemoptysis and Denies wheezing GI Denies abdominal pain, Denies melena, Denies constipation, Denies diarrhea and Denies vomiting Denies dysuria, Denies urinary frequency and Denies urinary urgency Musc Denies arthralgias, Denies joint swelling, Denies numbness and Denies tingling Neuro Denies Abnormal speech present, Denies behavioral changes, Denies vertigo, Denies dizziness, Denies headache(s), Denies loss of vision, Denies memory loss, Denies numbness and Denies tingling Psych Denies anxiety, Denies behavioral changes, Denies depression, Denies memory loss and Denies panic attacks Audie/Lymph Denies easy bleeding and Denies easy bruising Aller/Immun Denies wheezing Physical exam (Primary Care) Vital Signs: Last Vital Signs Pulse 92 11/11/23 15:09 BP 118/72 11/11/23 15:09 Pulse Ox 98 11/11/23 15:09 Oxygen Delivery Method Room Air 11/11/23 15:09 BMI result Body Mass Index 25.8 Tobacco/Smoking Status: Tobacco use Status Tobacco use date assessed 06/18/23 11/11/23 15:18 Patient Tobacco Use Status Current everyday Tobacco 11/11/23 15:18 Tobacco use type Cigarette 11/11/23 15:18 e-Cigarette/Vaping Use Never Used 11/11/23 15:18 Thrive Assessment: Date of Thrive Assessment Date Thrive assessed 06/08/23 11/11/23 15:18 Const General: healthy appearing, no acute distress, alert and awake Nutritional Appearance: well nourished Orientation/consciousness: oriented to person, oriented to place and oriented to time HENMT Ears: TM's normal bilaterally General nose exam: Normal nasal mucous membranes and turbinates present Eyes Conjunctivae: conjunctivae normal Sclerae: sclerae normal Pupils: Equal, round and reactive pupils present Neck Neck: Yes no lymphadenopathy and Yes no JVD Thyroid: Thyroid normal Carotids: no bruits Resp Effort & Inspection: normal respiratory effort and not tachypneic Auscultation: no crackles, no rales, no rhonchi and no wheezes Cardio Rate: regular rate Rhythm: regular rhythm Heart sounds: no murmurs and normal S1 and S2 GI Palpation (GI): Soft to palpation, nontender, no hepatomegaly and no splenomegaly Auscultation: normal bowel sounds Skin General skin exam: no rashes or lesions noted and dry skin Neuro General: oriented to person, oriented to place and oriented to time Cranial nerves: Yes Equal, round and reactive pupils present Speech: No Abnormal speech present Gait exam (Neuro): Normal gait present Motor exam (neuro): no tremor noted Extrem Right upper extremity: full ROM Left upper extremity: full ROM Right lower extremity: full ROM; no edema Left lower extremity: full ROM; no edema Psych Mental Status: mental status grossly normal Speech and movement: Normal speech and movement present Affect: normal affect Attitude: cooperative Thought process: Normal thought process present Assessment and Plan Assessment & Plan (1) Thoracic spine pain: Code(s): M54.6 - Pain in thoracic spine Plan: Patient has up with Orthopedics and pain management. Did not have to do any injections or physical therapy. He reports he was able to massage and use a tennis ball over the area of pain in pain has gotten better. (2) Cervical radiculitis: Code(s): M54.12 - Radiculopathy, cervical region Coding Level of Care Code Est Pt Level 3 (58062) Diagnoses Thoracic spine pain M54.6 Cervical radiculitis M54.12
[2023-11-11 15:09] VITALS: BP 118/72; PULSE 92; O2SAT 98; BMI 25.8
== END 2023-11-11 15:36 | disposition home or self-care (01) ==
PROVIDERS: PCP Internal Medicine; Visit Provider Physician Assistant
DX: M54.6 Pain in thoracic spine (principal); M54.12 Radiculopathy, cervical region
CPT/HCPCS: 99213

== ENCOUNTER 2024-03-20 17:20 | Inpatient (IN) | payer OTHER, SELFPAY ==
[2024-03-20 17:22] VITALS: BP 156/106; PULSE 104; O2SAT 97
--- NOTE | 2024-03-20 17:33 | ED_ITS ---
HPI - Psych General Chief Complaint: Psychiatric Symptoms Stated Complaint: SI W/ PLAN PER EMS Time Seen by Provider: 03/20/24 17:33 Source: patient and EMS Mode of arrival: EMS Limitations: no limitations History of Present Illness ED Provider: MARIA T PARRA PA-C HPI Narrative: 38-year-old male with pmhx significant for testicular cancer, polysubstance abuse (heroin, cocaine), hepatitis-C, mood disorder, depression, OCD presents to the ED today via EMS from home for evaluation of depression and suicidal ideation with plan to cut himself with a razor. States his OCD was telling him that he no longer loved his dog which prompted him to give the dog to a senior living on February 03. Since this time, he has been regretting his decision. He has a attempted to get the dog back without success. States that he can no longer live like this. Reports body aches and upset stomach when he thinks about the situation. Admits to consuming alcohol to try and deal with the situation. Last drink 2 beers prior to arrival in ED today. Declining detox. Denies illicit substance use. Denies AH/TH/VH. Denies any physical complaints at present. Admits to recently seeing his therapist who wanted to restart him on risperidone. Patient has not picked this prescription up from the pharmacy. States that he was placed on this in the past without improvement. Related Data Home Medications ?Medication ?Instructions ?Recorded ?Confirmed buprenorphine 100 mg/0.5 mL mg subcut 08/19/23 11/11/23 solution,exten.rel.subcutaneous syringe (Sublocade) cyclobenzaprine 10 mg tablet 10 mg PO BEDTIME PRN 10/01/23 11/11/23 Previous Rx's ?Medication ?Instructions ?Recorded clomipramine 75 mg capsule 225 mg (3 x 75 mg) PO DAILY 30 04/15/23 days #90 caps dolutegravir 50 mg tablet 50 mg PO DAILY 28 days #28 tabs 08/20/23 Allergies Allergy/AdvReac Type Severity Reaction Status Date / Time codeine Allergy Severe Stomach Verified 03/20/24 17:42 Upset Review of Systems 2 Review of Systems: Constitutional: No fever, chills, fatigue, night sweats, weight changes ENT/Mouth: No ear pain, hearing loss, nasal congestion, sinus pain, rhinorrhea, sore throat Eyes: No eye pain, swelling, redness, vision changes, discharge Cardio: No chest pain, palpitations, GOEL, orthopnea, peripheral edema Pulm: No SOB, cough, sputum, wheezing, dyspnea, hemoptysis GI: No nausea, vomiting, hematemesis, abdominal pain, diarrhea, constipation, hematochezia, melena : No irregular bleeding, dysuria, frequency, urgency, hesitancy, hematuria, flank pain, urinary flow changes, urinary incontinence or retention MSK: No back pain, neck pain, joint pain, myalgias Skin: No lesions, rashes Neuro: No weakness, numbness, paresthesias, LOC, dizziness, headache Psych: No anxiety/panic, +SI, +depression All other systems reviewed and are negative. [facility] Past Medical History Attestation statement: The following information was validated with the patient. Source: old records reviewed and nursing notes reviewed Medical History History of hepatitis C Testicular cancer Polysubstance abuse Depression Surgical History History of orchiectomy Hx of cholecystectomy Family History Family History Father Diabetes Mother No problems noted. Other Substance use disorder Social History Social History Housing: House Alcohol intake: current Alcohol intake frequency: 0-2 drinks per day Alcohol type: beer Comment: once Q 2 weeks 3 drinks Patient Tobacco Use Status: Current everyday Tobacco user Tobacco use type: Cigarette Cigarettes Per Day: 7 Years Smoked: roll - 8 aday - Smoked in Last 30 Days: Yes e-Cigarette/Vaping Use: Never Used Second Hand Smoke Exposure: Yes Use of substances other than those prescribed or required for medical reasons: No Substance Use Type: Crack/Cocaine and Heroin Advance Directives: No Advance Directives Information Provided: No service: No Current occupational status: 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 No anemia. H&H stable. Chemistry without acute electrolyte abnormality requiring intervention. No JOSELINE. Normal liver function. Urine without infection or blood. Urine toxicology positive for buprenorphine, otherwise negative. Ethanol undetectable. Acetaminophen and salicylates undetectable. > at this time, patient has been medically cleared for care team evaluation. Physician observation initiated. 2125 -- Per Albert from care team, patient will be IPLOC bed search. Placed on Section 12. Medications Administered Discontinued Medications Generic Name Dose Route Start Last Admin Trade Name Freq PRN Reason Stop Dose Admin Lorazepam 0.5 mg 03/20/24 20:05 03/20/24 20:14 Lorazepam 0.5 Mg Tablet PO 03/20/24 20:06 0.5 mg ONCE ONE Administration Medical Decision Making Medical Decision Making [facility] Narrative: 38-year-old male with pmhx significant for testicular cancer, polysubstance abuse (heroin, cocaine), hepatitis-C, mood disorder, depression, OCD presents to the ED today via EMS from home for evaluation of depression and suicidal ideation with plan to cut himself with a razor. Patient hypertensive to 151/96. Patient tearful on examination. Avoiding eye contact. No tremors or asterixis. Differential diagnosis includes polysubstance use, ETOH intoxication, suicidal ideation, mood disorder, depression Plan for labs, UA, UDS, care team evaluation 20:24, care team evaluated the patient. Patient on a Section 12. Inpatient bed search. Differential Diagnosis Differential Diagnoses: The differential diagnosis associated with the presentation includes as above Admission/Observation Consideration of admission/observation: Escalation of care including admission/observation considered Lab Data [facility] Lab Attestation statement: I reviewed the patient's lab results. As above 03/20/24 18:11 03/20/24 18:11 Labs: Lab Results 03/20/24 03/20/24 Range/Units 17:54 18:11 WBC 10.1 (4.8-10.8) X10*3/uL RBC 5.27 (4.60-5.80) X10*6/uL Hgb 15.6 (14.0-18.0) g/dl Hct 45.5 (42.0-52.0) % MCV 86.3 (80.0-98.0) fL MCH 29.6 (27.0-33.0) pg MCHC 34.3 (31.0-36.0) g/dl RDW 12.1 (11.0-16.0) % Plt Count 280 (160-400) X10*3/uL MPV 9.4 (9.4-12.4) fL Immature Gran % (Auto) 1.3 H (0.0-0.4) % Neut % (Auto) 68.0 (45-73) % Lymph % (Auto) 24.6 (20-40) % [place] % (Auto) 5.5 (2-11) % Eos % (Auto) 0.1 (0-4) % Baso % (Auto) 0.5 (0-2) % Lymph # (Auto) 2.5 (1.2-4.9) X10*3/uL [place] # (Auto) 0.6 (0.1-1.2) X10*3/uL Eos # (Auto) 0.0 (0.0-0.4) X10*3/uL Baso # (Auto) 0.1 (0.0-0.2) X10*3/uL Abs Immat Gran (auto) 0.13 H (0.00-0.03) X10*3/uL Absolute Neuts (auto) 6.9 (2.0-8.3) x10*3/uL Absolute Nucleated RBC 0.000 (0.0-0.012) X10*3/uL Nucleated RBC % (auto) 0.0 (0.0-0.2) /100WBC Sodium 139 (135-145) mmol/L Potassium 3.9 (3.3-5.1) mmol/L Chloride 102 (96-108) mmol/L Carbon Dioxide 26 (22-29) mmol/L Anion Gap 15 (12-20) BUN 15 (9-16) mg/dL Creatinine 0.78 (0.5-1.4) mg/dL Estim Creat Clear Calc 114.7 Estimated GFR > 60 Random Glucose 92 (60-115) mg/dL Calcium 9.3 (8.4-10.2) mg/dL Magnesium 2.1 (1.6-2.6) mg/dL Total Bilirubin 0.3 (0.0-1.0) mg/dL AST 23 (5-37) U/L ALT 33 (0-40) U/L Alkaline Phosphatase 90 (39-117) U/L Total Protein 7.4 (6.5-8.0) g/dL Albumin 4.6 (3.5-5.0) g/dL Urine Color Yellow Urine Appearance Cloudy Urine pH 5.5 (5.0-9.0) Ur Specific [place] 1.020 (1.005-1.025) Urine Protein Negative (Neg-Trace) mg/dL Urine Glucose (UA) Negative (Negative) mg/dL Urine Ketones Trace (Negative) mg/dL Urine Blood Negative (Negative) Urine Nitrite Negative (Negative) Ur Leukocyte Esterase Negative (Negative) Salicylates < 5.0 L (15-30) mg/dL Urine Opiates Screen Not Detected (Not Detect) Ur Buprenorphine Scrn Positive H (Not Detect) ng/mL Ur Oxycodone Screen Not Detected (Not Detect) ng/mL Urine Methadone Screen Not Detected (Not Detect) ng/mL Urine Fentanyl Screen Not Detected (Not Detect) Acetaminophen < 3 (<30) mcg/mL Ur Barbiturates Screen Not Detected (Not Detect) Ur Phencyclidine Scrn Not Detected (Not Detect) Ur Amphetamines Screen Not Detected (Not Detect) U Benzodiazepines Scrn Not Detected (Not Detect) Urine Cocaine Screen Not Detected (Not Detect) U Marijuana (THC) Screen Not Detected (Not Detect) Ethyl Alcohol < 10 mg/dL External Record Review External record reviewed: Inpatient record Chronic Conditions Patient?s care impacted by: Other (Mood disorder, depression) Social Determinants Patient?s care significantly limited by Social Determinants of Health including: Alcoholism and drug addiction in family and Other Social Determinant of Health Critical Care Time Critical Care Time Critical Care Time: No Discharge Plan Discharge Clinical Impression: Depression, Suicidal ideation Patient Disposition: Still a Patient Prescriptions: No Action clomipramine 75 mg capsule 225 mg PO DAILY 30 Days Qty: 90 2RF Sublocade 100 mg/0.5 mL solution, extended rel syringe subcut dolutegravir 50 mg tablet 50 mg PO DAILY 28 Days Qty: 28 0RF cyclobenzaprine 10 mg tablet 10 mg PO BEDTIME PRN Interventions: [place]-Suicide Risk Severity Scale Last Done: 03/20/24 18:36 Print Language: Portuguese
[2024-03-20 17:37] VITALS: BP 151/96; PULSE 88; RESP 16; TEMP 36.9; O2SAT 99; BMI 25.8
[2024-03-20 18:05] LABS: Appearance Urine Cloudy; Color Urine Yellow; Glucose Urine UA Negative (Negative); Leukocyte Esterase Urine Negative (Negative); Nitrite Urine Negative (Negative); PH 5.5 (5.0-9.0); Urine Blood Negative (Negative); Urine Ketones Trace mg/dL (Negative); Urine Protein Negative (Neg-Trace)
[2024-03-20 18:18] LABS: Amphetamine Screen Urine Not Detected (Not Detect); Barbiturates, Urine Not Detected (Not Detect); Benzodiazepines Screen Urine Not Detected (Not Detect); Buprenorphine Scr Positive (Not Detect); Cannabinoid Screen Urine Not Detected (Not Detect); Cocaine Screen Urine Not Detected (Not Detect); Fentanyl, urine Not Detected (Not Detect); Methadone Screen, Urine Not Detected (Not Detect); Opiate Screen Urine Not Detected (Not Detect); Oxycodone Screen Urine Not Detected (Not Detect); Phencyclidine Screen Urine Not Detected (Not Detect)
[2024-03-20 18:20] LABS: MANUAL DIFF FLAG NO
[2024-03-20 18:37] LABS: Basophils Absolute Auto 0.1 X10*3/uL (0.0-0.2); Basophils Percent Auto 0.5 % (0-2); Eosinophils Percent Auto 0.1 % (0-4); Hematocrit 45.5 % (42.0-52.0); Hemoglobin 15.6 g/dl (14.0-18.0); Imm Gran Abs Auto 0.13 X10*3/uL (0.00-0.03); Imm Gran Pct Auto 1.3 % (0.0-0.4); Lymphocytes Absolute Auto 2.5 X10*3/uL (1.2-4.9); Lymphocytes Percent Auto 24.6 % (20-40); Mean Corpuscular HGB Conc 34.3 g/dl (31.0-36.0); Mean Corpuscular Hemoglobin 29.6 pg (27.0-33.0); Mean Corpuscular Volume 86.3 fL (80.0-98.0); Mean Platelet Volume 9.4 fL (9.4-12.4); Monocytes Absolute Auto 0.6 X10*3/uL (0.1-1.2); Monocytes Percent Auto 5.5 % (2-11); Neutrophils Absolute Auto 6.9 x10*3/uL (2.0-8.3); Platelet Count 280 X10*3/uL (160-400); Red Blood Count 5.27 X10*6/uL (4.60-5.80); Red Cell Distribution Width 12.1 % (11.0-16.0); White Blood Count 10.1 X10*3/uL (4.8-10.8)
[2024-03-20 18:44] LABS: Acetaminophen LAB < 3 mcg/mL (<30); Alanine Aminotransferase 33 U/L (0-40); Albumin Level 4.6 g/dL (3.5-5.0); Alkaline Phosphatase 90 U/L (39-117); Anion Gap 15 (12-20); Aspartate Amino Transferase 23 U/L (5-37); Bilirubin Total 0.3 mg/dL (0.0-1.0); Blood Urea Nitrogen 15 mg/dL (9-16); Calcium 9.3 mg/dL (8.4-10.2); Carbon Dioxide 26 mmol/L (22-29); Chloride 102 mmol/L (96-108); Creatinine Clr Calc Pharmacy 114.7; Estimated Glomerular Filt Rate > 60; Ethanol < 10 mg/dL; Glucose Random 92 mg/dL (60-115); Magnesium 2.1 mg/dL (1.6-2.6); Potassium 3.9 mmol/L (3.3-5.1); Salicylate < 5.0 mg/dL (15-30); Sodium 139 mmol/L (135-145); Total Protein 7.4 g/dL (6.5-8.0)
--- NOTE | 2024-03-20 19:38 | PC.NURSE ---
pt resting comfortably at this time, encouraged pt to eat or drink something but he declined, will alert staff if his needs change.
[2024-03-20] MEDS: LORazepam 0.5 MG TABLET PO (20:14)
--- NOTE | 2024-03-20 21:10 | MHC.CARE ---
Pt was assessed by the CARE team, Disposition was discussed with Dr. Nuvia Christiansen and Margot HANEY both were in agreement that Pt will be an Adult IPLOC bed search for mood stabilization, medication evaluation, safety and support. Pt is currently on a section 12; at this time Pt is agreeable to IPLOC.
--- NOTE | 2024-03-20 21:30 | PC.NURSE ---
pt sitting up on stretcher, requested food, sandwich and alva tab provided per request
[2024-03-20 22:34] VITALS: BP 132/78; PULSE 87; RESP 16; TEMP 36.4; O2SAT 95
--- NOTE | 2024-03-20 23:48 | PC.NURSE ---
Took over care from CANDY Pittman, pt sleeping at this time
--- NOTE | 2024-03-21 03:30 | PC.NURSE ---
This video game script writer assumed care of this Pt at 0300. Pt appears to be sleeping, equal, non labored respirations. 1:1 at bedside for safety.
[2024-03-21 06:43] VITALS: BP 98/63; PULSE 61; RESP 16; O2SAT 97
[2024-03-21 08:45] VITALS: BP 119/72; PULSE 69; RESP 16; TEMP 36.4; O2SAT 97
--- NOTE | 2024-03-21 09:53 | PHA.MEDREC ---
Pharmacy Consult ? Medication Reconciliation Pharmacy has completed the medication reconciliation. Spoke with patient, he was able to confirm he takes his clomipramine three times daily, not all three at once. And he confirmed to be on 100 mg sublocade last dose given about 2 weeks ago.
--- OUTSIDE RECORDS SUMMARY | 2024-03-21 14:40 | XMS_ITS | Patient Health Record ---
Author Organization [facility] Address [address] [place] [address] [phone] Support Name Relationship Address Phone JesusglennaJacquelinea Emergency Contact Unknown Hira Menendez Guarantor Unknown Unavailable REASON FOR REFERRAL No Information SOCIAL HISTORY Sex Assigned At : Social History Observation Description Sex Assigned At Unknown PLAN OF TREATMENT No Information
[2024-03-21 15:48] VITALS: BP 126/74; PULSE 80; RESP 16; TEMP 36.6; O2SAT 96
--- NOTE | 2024-03-21 15:49 | PC.NURSE ---
called pharmacy X2 for missing med
[2024-03-21] MEDS: clomiPRAMINE HCl 25 MG CAPSULE 75 MG PO ×2 (16:12→22:00)
[2024-03-21 20:00] VITALS: BP 132/83; TEMP 36.6; O2SAT 98
[2024-03-21] MEDS: OLANZapine 5 MG TABLET PO (21:59)
[2024-03-21] MEDS: traZODone HCL 50 MG TABLET PO (21:59)
[2024-03-22 07:55] VITALS: BP 110/68; PULSE 128; RESP 18; TEMP 36.6; O2SAT 95
[2024-03-22 07:59] LABS: Estimated Average Glucose 100 mg/dL; Hemoglobin A1C 136.2975 umol/L; Hemoglobin A1c % 5.1 % (<6.0); Total Hemoglobin (HGBA1C) 4243.1506 umol/L
[2024-03-22 08:06] LABS: Cholesterol 273 mg/dL (<200); HDL Cholesterol 40 mg/dL (>40); LDL Cholesterol Calculated 196 mg/dL (<100); Triglycerides 186 mg/dL (<150)
[2024-03-22 08:21] LABS: TSH reflex Free T4 2.45 uIU/mL (0.32-4.0)
[2024-03-22] MEDS: clomiPRAMINE HCl 25 MG CAPSULE 75 MG PO ×3 (09:15→20:20)
[2024-03-22 10:15] VITALS: PULSE 100
--- NOTE | 2024-03-22 10:53 | P.HPPS_ITS ---
HPI Date of Service: 03/22/24 Chief Complaint: suicidal Sources of Information: patient interviewed, chart reviewed and crisis/core team assessment reviewed HPI Subjective Notes: [place] Warning and Conditional Voluntary Healthcare Proxy: No Narrative: 38 yo male to ER with reports of increase in depression for over a month with SI. Plans cutting with a history of SIBS. Reports hx of sx since age 18, believes he had a break at that time when he had just moved to [place], was living with a cousin, out of work and was having obsessive thoughts. Reports 20 years of sx since that time. Triggered one month ago, I cannot take how I feel . The anxiety kills me, I am so low, I may need to kill myself, it is too much to bear. States he called crisis the other night as his despair was so intense. Current precipitant includes pt gave away his puppy a month ago to a halfway due to obsessive thoughts. Realizes now it was the illness talking, not something he wanted to do as he loved this puppy. He is active in grief over this loss. I could not see the truth from the OCD sx. States he cannot talk with people at work, but does attend work and does not talk with colleagues or customers. Reports sx of skin crawling. States he is looking for a med to calm his body as previous trials have not worked. States low dose Valium has helped to decrease the physical pain of this by history. I can tolerate the thoughts, I cannot tolerate the way my body feels. Past Psychiatric History: IP~5 admits, 3 in [place] OP: [facility] (0n line prescribing) [facility], private practice, 20 years. Trials: Clomipramine, Sertraline, Prozac, Effexor, Risperdal, Buspar, Luvox and other trials in [place] SIBS: Cutting age 14-no longer engages- once cut deeply, required sutures Burning-age 18- not done for a few years No hx of attempts, wants to live, but has thoughts. Medical Evaluation Reviewed: Yes [facility] Medical History History of hepatitis C Testicular cancer Polysubstance abuse Depression Surgical History History of orchiectomy Hx of cholecystectomy Family History: Dad- wierd Mom- probably depressed Sister- depressed, anxious Unaware of any formal dx Social History: Born, raised [place]. Raised in a tense home, with discord. Dad spent a lot of time isolated in his room. Describes the environment as chaotic, miserable at times. One brother, one sister OCD sx age 3-5. Taken from [email or web address] in fifth grade to public school. Recalls sx increasing with needing to tap his desk x 8, tap the legs of his chair x 8. Recalls a female friend in sixth grade telling him of OCD and of his sx. Pt spent six years in [place] as a student, he worked there, had 3 admissions and was overtaken by sx. 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 Sublocade pt. Binge hx in 's-self medicated OCD. Denies sx now. Last binge ~4 years ago. Took pills in his s as well, sniffed heroin and cocaine a few times. Did go to a 6 month residential program in [place] for addiction and I felt good there . Trauma History: Affirms Diagnostics Vital Signs (24Hr): Vital Signs - 24 hr 03/21/24 15:48 03/21/24 20:00 03/22/24 07:55 Temperature 97.9 F 97.8 F 97.8 F Pulse Rate 80 128 H Respiratory Rate 16 18 Blood Pressure 126/74 132/83 110/68 Pulse Oximetry 96 98 95 Oxygen Delivery Method Room Air Room Air Room Air BMI result Body Mass Index 25.8 Labs 03/20/24 18:11 03/20/24 18:11 Labs: Laboratory Results - last 48 hr 03/20/24 03/20/24 03/22/24 17:54 18:11 07:24 WBC 10.1 RBC 5.27 Hgb 15.6 Hct 45.5 MCV 86.3 MCH 29.6 MCHC 34.3 RDW 12.1 Plt Count 280 MPV 9.4 Immature Gran % (Auto) 1.3 H Neut % (Auto) 68.0 Lymph % (Auto) 24.6 [place] % (Auto) 5.5 Eos % (Auto) 0.1 Baso % (Auto) 0.5 Lymph # (Auto) 2.5 [place] # (Auto) 0.6 Eos # (Auto) 0.0 Baso # (Auto) 0.1 Abs Immat Gran (auto) 0.13 H Absolute Neuts (auto) 6.9 Absolute Nucleated RBC 0.000 Nucleated RBC % (auto) 0.0 Sodium 139 Potassium 3.9 Chloride 102 Carbon Dioxide 26 Anion Gap 15 BUN 15 Creatinine 0.78 Estim Creat Clear Calc 114.7 Estimated GFR > 60 Random Glucose 92 Estimat Average Glucose 100 Hemoglobin A1c % 5.1 Calcium 9.3 Magnesium 2.1 Total Bilirubin 0.3 AST 23 ALT 33 Alkaline Phosphatase 90 Total Protein 7.4 Albumin 4.6 Triglycerides 186 H Cholesterol 273 H LDL Cholesterol, Calc 196 H HDL Cholesterol 40 L TSH 2.45 Urine Color Yellow Urine Appearance Cloudy Urine pH 5.5 Ur Specific [place] 1.020 Urine Protein Negative Urine Glucose (UA) Negative Urine Ketones Trace Urine Blood Negative Urine Nitrite Negative Ur Leukocyte Esterase Negative Salicylates < 5.0 L Urine Opiates Screen Not Detected Ur Buprenorphine Scrn Positive H Ur Oxycodone Screen Not Detected Urine Methadone Screen Not Detected Urine Fentanyl Screen Not Detected Acetaminophen < 3 Ur Barbiturates Screen Not Detected Ur Phencyclidine Scrn Not Detected Ur Amphetamines Screen Not Detected U Benzodiazepines Scrn Not Detected Urine Cocaine Screen Not Detected U Marijuana (THC) Screen Not Detected Ethyl Alcohol < 10 Meds/Allergies Meds Home Medications ?Medication ?Instructions ?Recorded ?Confirmed ?Type buprenorphine 100 mg/0.5 mL 100 mg subcut Q28D 03/21/24 03/21/24 History solution,exten.rel.subcutaneous syringe (Sublocade) clomipramine 75 mg capsule 75 mg PO TID 03/21/24 03/21/24 History Allergies Allergies Allergy/AdvReac Type Severity Reaction Status Date / Time codeine Allergy Severe Stomach Verified 03/20/24 17:42 Upset Mental Status Exam Mental Status Exam Patient Appearance: Appropriate Patient Orientation: Person, Place, Time and Situation Level of Consciousness: Alert Patient Behavior: Talkative, Cooperative and Good Eye Contact Mood Description: Depressed Affect Description: Flat Patient Cognition Impaired: No Ability to Follow Directions: Good Speech Pattern: Spontaneous Speech Memory Description: Intact Hallucinations: None Delusions: Not Present Thought Process: Rumination Thought Content: positive for Obsessional Thoughts, positive for Perseveration and positive for Suicidal Ideation (no plan or intent) Depressive Symptoms: Thoughts of /Suicide Judgement: Fair Assessment & Plan Assessment & Plan (1) Suicidal ideation: Status: Acute Code(s): R45.851 - Suicidal ideations (2) Depression: Status: Acute Code(s): F32.A - Depression, unspecified (3) OCD (obsessive compulsive disorder): Status: Acute Qualifiers: Obsessive-compulsive disorder type: unspecified Qualified Code(s): F 42.9 - Obsessive-compulsive disorder, unspecified Code(s): F42.9 - Obsessive-compulsive disorder, unspecified Plan Depression, SI, OCD. Hx opiate dependence, currently on Sublocade Plan: Admit, CV, 15 minute checks Collateral Contacts Review med trials with prescriber Valium 2 mg tid prn anxiety Continue Anafranil-pt reports it does help Risperdal 1 mg bid Patient educated on: medication risk/benefits Reason for continued inpatient stay Substantial Risk for: rapid decompensation Statement Statement: I have reviewed the history and physical and performed a pertinent examination on my patient. No changes have occurred unless specified. If the History and Physical was not performed prior to admission, the Hospitalist's service will be consulted for completing the admission physical. Time Spent With Patient Time: Total time managing care of this patient today ____ minutes.
[2024-03-22 12:48] VITALS: BMI 25.8
[2024-03-22 20:00] VITALS: BP 121/83; PULSE 75; TEMP 36.4; O2SAT 96
[2024-03-22] MEDS: diazePAM 2 MG TABLET PO (20:25)
[2024-03-22] MEDS: traZODone HCL 50 MG TABLET PO (20:26)
[2024-03-23 08:00] VITALS: BP 105/59; PULSE 67; RESP 14; TEMP 36.8; O2SAT 96
[2024-03-23] MEDS: clomiPRAMINE HCl 25 MG CAPSULE 75 MG PO ×3 (09:24→21:14)
[2024-03-23] MEDS: diazePAM 2 MG TABLET PO ×2 (09:28→15:38)
--- NOTE | 2024-03-23 15:33 | P.PNPSI_ITS ---
Subjective Subjective Date of Service: 03/23/24 Reason For Visit: suicidal Subjective Notes: Conditional Voluntary Healthcare Proxy: No Guardianship: No Medical Problems Affecting Mental Status: No Interim History: Pt reports Valium to be helpful and is experiencing relief. Also finds Olanzapine useful. TMS consult ordered. Discussed and provided literature for pt. Medication Compliance: Yes Side effects from medications: No Attending Groups: No Review of Systems Acute medical concerns: No Medical Review of Systems: unchanged Review of Systems Review of Systems Yes all other systems are reviewed and are negative Mental Status Exam Mental Status Exam Patient Appearance: Appropriate Patient Orientation: Person, Place, Time and Situation Level of Consciousness: Alert Patient Behavior: Talkative, Cooperative and Good Eye Contact Mood Description: Depressed Affect Description: Flat Patient Cognition Impaired: No Ability to Follow Directions: Good Speech Pattern: Spontaneous Speech Memory Description: Intact Hallucinations: None Delusions: Not Present Thought Process: Rumination Thought Content: positive for Obsessional Thoughts, positive for Perseveration and positive for Suicidal Ideation (no plan or intent) Depressive Symptoms: Thoughts of /Suicide Judgement: Fair Diagnostics Vital Signs (24Hr): Vital Signs - 24 hr 03/22/24 20:00 03/23/24 08:00 Temperature 97.6 F 98.2 F Pulse Rate 75 67 Respiratory Rate 14 Blood Pressure 121/83 105/59 L Pulse Oximetry 96 96 Oxygen Delivery Method Room Air Room Air BMI result Body Mass Index 25.8 Labs 03/20/24 18:11 03/20/24 18:11 Labs: Laboratory Results - last 48 hr 03/22/24 07:24 Estimat Average Glucose 100 Hemoglobin A1c % 5.1 Triglycerides 186 H Cholesterol 273 H LDL Cholesterol, Calc 196 H HDL Cholesterol 40 L TSH 2.45 Medications Medications Current Medications Acetaminophen (Acetaminophen 325 Mg Tablet) 650 mg PO Q6H PRN PRN Reason: Headache/Pain Mild Scale (1-3) Al Hydroxide/Mg Hydroxide (Magnesium Hydrox/Alum Hydrox 30 Ml Oral.Susp) 30 ml PO Q6H PRN PRN Reason: Heartburn/Nausea Clomipramine HCl (Clomipramine Hcl 25 Mg Capsule) 75 mg PO TID [place] Last Admin: 03/23/24 09:24 Dose: 75 mg Diazepam (Diazepam 2 Mg Tablet) 2 mg PO TID PRN PRN Reason: Anxiety Last Admin: 03/23/24 09:28 Dose: 2 mg Hydroxyzine HCl (Hydroxyzine Hcl 25 Mg Tablet) 25 mg PO Q6H PRN PRN Reason: Anxiety Magnesium Hydroxide (Milk Of Magnesia 30 Ml Oral.Susp) 30 ml PO DAILY PRN PRN Reason: Constipation Nicotine (Nicotine 21 Mg Patch.Td24) 21 mg TRANSDERMA DAILY PRN PRN Reason: smoking cessation Nicotine Polacrilex (Nicotine Polacrilex 2 Mg Gum) 4 mg BUCCAL Q2H PRN PRN Reason: Nicotine Cravings Olanzapine (Olanzapine 5 Mg Tablet) 5 mg PO TID PRN PRN Reason: agitation Last Admin: 03/21/24 21:59 Dose: 5 mg Trazodone HCl (Trazodone Hcl 50 Mg Tablet) 50 mg PO BEDTIME MRX1 PRN PRN Reason: Insomnia Last Admin: 03/22/24 20:26 Dose: 50 mg Allergies Allergies Allergy/AdvReac Type Severity Reaction Status Date / Time codeine Allergy Severe Stomach Verified 03/20/24 17:42 Upset Assessment & Plan Assessment & Plan (1) Suicidal ideation: Status: Acute Code(s): R45.851 - Suicidal ideations (2) Depression: Status: Acute Code(s): F32.A - Depression, unspecified (3) OCD (obsessive compulsive disorder): Qualifiers: Obsessive-compulsive disorder type: unspecified Qualified Code(s): F 42.9 - Obsessive-compulsive disorder, unspecified Status: Acute Code(s): F42.9 - Obsessive-compulsive disorder, unspecified Plan Depression, SI, OCD. Hx opiate dependence, currently on Sublocade Plan: Admit, CV, 15 minute checks Collateral Contacts Review med trials with prescriber Valium 2 mg tid prn anxiety Continue Anafranil-pt reports it does help Risperdal 1 mg bid 03/23: Olanzapine prn pt finds helpful-continue TMS consult. Reason for continued inpatient stay Substantial Risk for: rapid decompensation Time Spent With Patient Time: Total time managing care of this patient today ____ minutes.
[2024-03-23] MEDS: OLANZapine 5 MG TABLET PO ×2 (15:38→21:15)
[2024-03-23 20:00] VITALS: BP 112/66; PULSE 98; RESP 18; TEMP 36.8; O2SAT 96
[2024-03-23] MEDS: Acetaminophen 325 MG TABLET 650 MG PO (21:14)
[2024-03-23] MEDS: traZODone HCL 50 MG TABLET PO (21:15)
[2024-03-24 07:00] VITALS: BMI 27.3
[2024-03-24 08:00] VITALS: BP 108/56; PULSE 63; RESP 18; TEMP 36.6; O2SAT 95
[2024-03-24] MEDS: clomiPRAMINE HCl 25 MG CAPSULE 75 MG PO ×3 (08:30→21:30)
[2024-03-24] MEDS: OLANZapine 5 MG TABLET PO ×3 (08:35→21:32)
[2024-03-24] MEDS: diazePAM 2 MG TABLET PO ×3 (08:35→21:32)
--- NOTE | 2024-03-24 18:45 | P.PNPSI_ITS ---
Subjective Subjective Date of Service: 03/24/24 Reason For Visit: suicidal Subjective Notes: Conditional Voluntary Healthcare Proxy: No Guardianship: No Medical Problems Affecting Mental Status: No Interim History: Review of medications Denies SI/HI/AH/VH Await TMS Consult Medication Compliance: Yes Side effects from medications: No Attending Groups: Yes Review of Systems Acute medical concerns: No Medical Review of Systems: unchanged Review of Systems Review of Systems Yes all other systems are reviewed and are negative Mental Status Exam Mental Status Exam Patient Appearance: Appropriate Patient Orientation: Person, Place, Time and Situation Level of Consciousness: Alert Patient Behavior: Talkative, Cooperative and Good Eye Contact Mood Description: Depressed Affect Description: Flat Patient Cognition Impaired: No Ability to Follow Directions: Good Speech Pattern: Spontaneous Speech Memory Description: Intact Hallucinations: None Delusions: Not Present Thought Process: Rumination Thought Content: positive for Obsessional Thoughts, positive for Perseveration and positive for Suicidal Ideation (no plan or intent) Depressive Symptoms: Thoughts of /Suicide Judgement: Fair Diagnostics Vital Signs (24Hr): Vital Signs - 24 hr 03/23/24 20:00 03/24/24 08:00 Temperature 98.3 F 97.9 F Pulse Rate 98 63 Respiratory Rate 18 18 Blood Pressure 112/66 108/56 L Pulse Oximetry 96 95 Oxygen Delivery Method Room Air Room Air BMI result Body Mass Index 27.3 Labs 03/20/24 18:11 03/20/24 18:11 Medications Medications Current Medications Acetaminophen (Acetaminophen 325 Mg Tablet) 650 mg PO Q6H PRN PRN Reason: Headache/Pain Mild Scale (1-3) Last Admin: 03/23/24 21:14 Dose: 650 mg Al Hydroxide/Mg Hydroxide (Magnesium Hydrox/Alum Hydrox 30 Ml Oral.Susp) 30 ml PO Q6H PRN PRN Reason: Heartburn/Nausea Clomipramine HCl (Clomipramine Hcl 25 Mg Capsule) 75 mg PO TID [place] Last Admin: 03/24/24 14:31 Dose: 75 mg Diazepam (Diazepam 2 Mg Tablet) 2 mg PO TID PRN PRN Reason: Anxiety Last Admin: 03/24/24 14:31 Dose: 2 mg Hydroxyzine HCl (Hydroxyzine Hcl 25 Mg Tablet) 25 mg PO Q6H PRN PRN Reason: Anxiety Magnesium Hydroxide (Milk Of Magnesia 30 Ml Oral.Susp) 30 ml PO DAILY PRN PRN Reason: Constipation Nicotine (Nicotine 21 Mg Patch.Td24) 21 mg TRANSDERMA DAILY PRN PRN Reason: smoking cessation Nicotine Polacrilex (Nicotine Polacrilex 2 Mg Gum) 4 mg BUCCAL Q2H PRN PRN Reason: Nicotine Cravings Olanzapine (Olanzapine 5 Mg Tablet) 5 mg PO TID PRN PRN Reason: agitation Last Admin: 03/24/24 14:31 Dose: 5 mg Trazodone HCl (Trazodone Hcl 50 Mg Tablet) 50 mg PO BEDTIME MRX1 PRN PRN Reason: Insomnia Last Admin: 03/23/24 21:15 Dose: 50 mg Allergies Allergies Allergy/AdvReac Type Severity Reaction Status Date / Time codeine Allergy Severe Stomach Verified 03/20/24 17:42 Upset Assessment & Plan Assessment & Plan (1) Suicidal ideation: Status: Acute Code(s): R45.851 - Suicidal ideations (2) Depression: Status: Acute Code(s): F32.A - Depression, unspecified (3) OCD (obsessive compulsive disorder): Qualifiers: Obsessive-compulsive disorder type: unspecified Qualified Code(s): F 42.9 - Obsessive-compulsive disorder, unspecified Status: Acute Code(s): F42.9 - Obsessive-compulsive disorder, unspecified Plan Depression, SI, OCD. Hx opiate dependence, currently on Sublocade Plan: Admit, CV, 15 minute checks Collateral Contacts Review med trials with prescriber Valium 2 mg tid prn anxiety Continue Anafranil-pt reports it does help Risperdal 1 mg bid 03/23: Olanzapine prn pt finds helpful-continue TMS consult. 03/24: Pt asks that we schedule Olanzapine and Valium [place] 150 mg HS to augment Olanzapine 5 mg bid Valium 2 mg tid Reason for continued inpatient stay Substantial Risk for: rapid decompensation Time Spent With Patient Time: Total time managing care of this patient today ____ minutes.
[2024-03-24 20:00] VITALS: BP 124/80; PULSE 98; RESP 16; TEMP 36.9; O2SAT 99
[2024-03-24] MEDS: traZODone HCL 50 MG TABLET PO (21:30)
[2024-03-24] MEDS: Lithium Carbonate 300 MG TABLET 150 MG PO (21:31)
[2024-03-25 08:00] VITALS: BP 126/85; PULSE 70; RESP 16; TEMP 36.7; O2SAT 96
[2024-03-25] MEDS: clomiPRAMINE HCl 25 MG CAPSULE 75 MG PO ×3 (08:47→20:59)
[2024-03-25] MEDS: OLANZapine 5 MG TABLET PO ×2 (08:47→20:59)
[2024-03-25] MEDS: diazePAM 2 MG TABLET PO ×3 (08:48→20:59)
[2024-03-25] MEDS: Acetaminophen 325 MG TABLET 650 MG PO (08:52)
--- NOTE | 2024-03-25 10:05 | HO.PSYCHPN ---
Subjective Subjective Date of Service: 03/25/24 Reason For Visit: suicidal Subjective Notes: Conditional Voluntary Healthcare Proxy: No Guardianship: No Medical Problems Affecting Mental Status: No Interim History: Reports some improvement. In the milieu!! Discussed [place] augment Slept 7 hours Discharge planning for next week Sx high 01/06 however feeling relief today. Medication Compliance: Yes Side effects from medications: No Attending Groups: Intermittent Review of Systems Acute medical concerns: No Medical Review of Systems: unchanged Review of Systems Review of Systems Yes all other systems are reviewed and are negative Mental Status Exam Mental Status Exam Patient Appearance: Appropriate Patient Orientation: Person, Place, Time and Situation Level of Consciousness: Alert Patient Behavior: Talkative, Cooperative and Good Eye Contact Mood Description: Depressed Affect Description: Flat Patient Cognition Impaired: No Ability to Follow Directions: Good Speech Pattern: Spontaneous Speech Memory Description: Intact Hallucinations: None Delusions: Not Present Thought Process: Rumination Thought Content: positive for Obsessional Thoughts and positive for Perseveration Judgement: Good Diagnostics Vital Signs (24Hr): Vital Signs - 24 hr 03/24/24 20:00 Temperature 98.4 F Pulse Rate 98 Respiratory Rate 16 Blood Pressure 124/80 Pulse Oximetry 99 Oxygen Delivery Method Room Air BMI result Body Mass Index 27.3 Labs 03/20/24 18:11 03/20/24 18:11 Medications Medications Current Medications Acetaminophen (Acetaminophen 325 Mg Tablet) 650 mg PO Q6H PRN PRN Reason: Headache/Pain Mild Scale (1-3) Last Admin: 03/25/24 08:52 Dose: 650 mg Al Hydroxide/Mg Hydroxide (Magnesium Hydrox/Alum Hydrox 30 Ml Oral.Susp) 30 ml PO Q6H PRN PRN Reason: Heartburn/Nausea Clomipramine HCl (Clomipramine Hcl 25 Mg Capsule) 75 mg PO TID [facility] Last Admin: 03/25/24 08:47 Dose: 75 mg Diazepam (Diazepam 2 Mg Tablet) 2 mg PO TID [facility] Last Admin: 03/25/24 08:48 Dose: 2 mg Hydroxyzine HCl (Hydroxyzine Hcl 25 Mg Tablet) 25 mg PO Q6H PRN PRN Reason: Anxiety [place] Carbonate ([place] Carbonate 300 Mg Tablet) 150 mg PO BEDTIME [facility] Last Admin: 03/24/24 21:31 Dose: 150 mg Magnesium Hydroxide (Milk Of Magnesia 30 Ml Oral.Susp) 30 ml PO DAILY PRN PRN Reason: Constipation Nicotine (Nicotine 21 Mg Patch.Td24) 21 mg TRANSDERMA DAILY PRN PRN Reason: smoking cessation Nicotine Polacrilex (Nicotine Polacrilex 2 Mg Gum) 4 mg [place] Q2H PRN PRN Reason: Nicotine Cravings Olanzapine (Olanzapine 5 Mg Tablet) 5 mg PO TID PRN PRN Reason: agitation Last Admin: 03/24/24 14:31 Dose: 5 mg Olanzapine (Olanzapine 5 Mg Tablet) 5 mg PO BID [place] Last Admin: 03/25/24 08:47 Dose: 5 mg Trazodone HCl (Trazodone Hcl 50 Mg Tablet) 50 mg PO BEDTIME MRX1 PRN PRN Reason: Insomnia Last Admin: 03/24/24 21:30 Dose: 50 mg Allergies Allergies Allergy/AdvReac Type Severity Reaction Status Date / Time codeine Allergy Severe Stomach Verified 03/20/24 17:42 Upset Assessment & Plan Assessment & Plan (1) Suicidal ideation: Status: Acute Code(s): R45.851 - Suicidal ideations (2) Depression: Status: Acute Code(s): F32.A - Depression, unspecified (3) OCD (obsessive compulsive disorder): Qualifiers: Obsessive-compulsive disorder type: unspecified Qualified Code(s): F42.9 - Obsessive-compulsive disorder, unspecified Status: Acute Code(s): F42.9 - Obsessive-compulsive disorder, unspecified Plan Depression, SI, OCD. Hx opiate dependence, currently on Sublocade Plan: Admit, CV, 15 minute checks Collateral Contacts Review med trials with prescriber Valium 2 mg tid prn anxiety Continue Anafranil-pt reports it does help Risperdal 1 mg bid 03/23: Olanzapine prn pt finds helpful-continue TMS consult. 03/25: Continue tx Reason for continued inpatient stay Substantial Risk for: rapid decompensation Time Spent With Patient Time: Total time managing care of this patient today ____ minutes.
[2024-03-25 20:00] VITALS: BP 132/79; PULSE 85; TEMP 36.9; O2SAT 97
[2024-03-25] MEDS: traZODone HCL 50 MG TABLET PO (20:59)
[2024-03-25] MEDS: Lithium Carbonate 300 MG TABLET 150 MG PO (20:59)
[2024-03-26 08:00] VITALS: BP 129/69; PULSE 66; RESP 17; TEMP 36.9; O2SAT 98
[2024-03-26] MEDS: clomiPRAMINE HCl 25 MG CAPSULE 75 MG PO ×3 (09:36→19:51)
[2024-03-26] MEDS: OLANZapine 5 MG TABLET PO ×2 (09:37→19:52)
[2024-03-26] MEDS: diazePAM 2 MG TABLET PO ×3 (09:37→19:52)
[2024-03-26] MEDS: Milk of Magnesia 30 ML ORAL.SUSP PO (09:40)
[2024-03-26] MEDS: hydrOXYzine HCL 25 MG TABLET PO (10:47)
--- NOTE | 2024-03-26 11:05 | HO.PSYCHPN ---
Subjective Subjective Date of Service: 03/26/24 Reason For Visit: suicidal Interim History: Reports some improvement. Tolerating Li augmentation. No side effects. More visible. Slept well. No SI. Review of Systems Review of Systems Reports physical pain due to the anxiety his body feels from the OCD sx. Yes all other systems are reviewed and are negative Mental Status Exam Mental Status Exam Patient Appearance: Appropriate Patient Orientation: Person, Place, Time and Situation Level of Consciousness: Alert Patient Behavior: Talkative, Cooperative and Good Eye Contact Mood Description: Depressed Affect Description: Flat Patient Cognition Impaired: No Ability to Follow Directions: Good Speech Pattern: Spontaneous Speech Memory Description: Intact Diagnostics Vital Signs (24Hr): Vital Signs - 24 hr 03/25/24 20:00 03/26/24 08:00 Temperature 98.5 F 98.5 F Pulse Rate 85 66 Respiratory Rate 17 Blood Pressure 132/79 129/69 Pulse Oximetry 97 98 Oxygen Delivery Method Room Air Room Air BMI result Body Mass Index 27.3 Labs 03/20/24 18:11 03/20/24 18:11 Medications Medications Current Medications Acetaminophen (Acetaminophen 325 Mg Tablet) 650 mg PO Q6H PRN PRN Reason: Headache/Pain Mild Scale (1-3) Last Admin: 03/25/24 08:52 Dose: 650 mg Al Hydroxide/Mg Hydroxide (Magnesium Hydrox/Alum Hydrox 30 Ml Oral.Susp) 30 ml PO Q6H PRN PRN Reason: Heartburn/Nausea Clomipramine HCl (Clomipramine Hcl 25 Mg Capsule) 75 mg PO TID [facility] Last Admin: 03/26/24 09:36 Dose: 75 mg Diazepam (Diazepam 2 Mg Tablet) 2 mg PO TID [facility] Last Admin: 03/26/24 09:37 Dose: 2 mg Docusate Sodium (Docusate Sodium 100 Mg Capsule) 100 mg PO BID [facility] Hydroxyzine HCl (Hydroxyzine Hcl 25 Mg Tablet) 25 mg PO Q6H PRN PRN Reason: Anxiety Last Admin: 03/26/24 10:47 Dose: 25 mg [place] Carbonate ([place] Carbonate 300 Mg Tablet) 150 mg PO BEDTIME [facility] Last Admin: 03/25/24 20:59 Dose: 150 mg Magnesium Hydroxide (Milk Of Magnesia 30 Ml Oral.Susp) 30 ml PO DAILY PRN PRN Reason: Constipation Last Admin: 03/26/24 09:40 Dose: 30 ml Nicotine (Nicotine 21 Mg Patch.Td24) 21 mg TRANSDERMA DAILY PRN PRN Reason: smoking cessation Nicotine Polacrilex (Nicotine Polacrilex 2 Mg Gum) 4 mg BUCCAL Q2H PRN PRN Reason: Nicotine Cravings Olanzapine (Olanzapine 5 Mg Tablet) 5 mg PO TID PRN PRN Reason: agitation Last Admin: 03/24/24 14:31 Dose: 5 mg Olanzapine (Olanzapine 5 Mg Tablet) 5 mg PO BID [facility] Last Admin: 03/26/24 09:37 Dose: 5 mg Trazodone HCl (Trazodone Hcl 50 Mg Tablet) 50 mg PO BEDTIME MRX1 PRN PRN Reason: Insomnia Last Admin: 03/25/24 20:59 Dose: 50 mg Allergies Allergies Allergy/AdvReac Type Severity Reaction Status Date / Time codeine Allergy Severe Stomach Verified 03/20/24 17:42 Upset Assessment & Plan Assessment & Plan (1) Suicidal ideation: Status: Acute Code(s): R45.851 - Suicidal ideations (2) Depression: Status: Acute Code(s): F32.A - Depression, unspecified (3) OCD (obsessive compulsive disorder): Qualifiers: Obsessive-compulsive disorder type: unspecified Qualified Code(s): F42.9 - Obsessive-compulsive disorder, unspecified Status: Acute Code(s): F42.9 - Obsessive-compulsive disorder, unspecified Plan Depression, SI, OCD. Hx opiate dependence, currently on Sublocade Plan: Admit, CV, 15 minute checks Collateral Contacts Review med trials with prescriber Valium 2 mg tid prn anxiety Continue Anafranil-pt reports it does help Risperdal 1 mg bid 03/23: Olanzapine prn pt finds helpful-continue TMS consult. 03/25: Continue tx 03/26: Consider increase Li. Continue current management and treatment plan. Reason for continued inpatient stay Substantial Risk for: harm to self, inability to function and rapid decompensation Time Spent With Patient Time: Total time managing care of this patient today ____ minutes.
[2024-03-26] MEDS: Docusate Sodium 100 MG CAPSULE PO ×2 (11:56→19:52)
[2024-03-26] MEDS: Lithium Carbonate 300 MG TABLET 150 MG PO (19:51)
[2024-03-26] MEDS: traZODone HCL 50 MG TABLET PO (19:51)
[2024-03-26 20:00] VITALS: BP 126/82; PULSE 83; TEMP 37.1; O2SAT 95
[2024-03-27 08:00] VITALS: BP 112/79; PULSE 66; RESP 20; TEMP 36.9; O2SAT 97
[2024-03-27] MEDS: clomiPRAMINE HCl 25 MG CAPSULE 75 MG PO ×3 (08:40→20:59)
[2024-03-27] MEDS: diazePAM 2 MG TABLET PO ×3 (08:41→20:59)
[2024-03-27] MEDS: Docusate Sodium 100 MG CAPSULE PO ×2 (08:41→20:59)
[2024-03-27] MEDS: OLANZapine 5 MG TABLET PO ×2 (08:41→20:59)
[2024-03-27] MEDS: Milk of Magnesia 30 ML ORAL.SUSP PO (09:09)
--- NOTE | 2024-03-27 11:38 | P.PNPSI_ITS ---
Subjective Subjective Date of Service: 03/27/24 Reason For Visit: suicidal Interim History: Reports improvement. Tolerating Li augmentation. Trying to stay connected and engaged in the milieu. No side effects. More visible. Slept well. No SI. Review of Systems Review of Systems Reports physical pain due to the anxiety his body feels from the OCD sx. Yes all other systems are reviewed and are negative Mental Status Exam Mental Status Exam Patient Appearance: Appropriate Patient Orientation: Person, Place, Time and Situation Level of Consciousness: Alert Patient Behavior: Talkative, Cooperative and Good Eye Contact Mood Description: Depressed Affect Description: Flat Patient Cognition Impaired: No Ability to Follow Directions: Good Speech Pattern: Spontaneous Speech Memory Description: Intact Diagnostics Vital Signs (24Hr): Vital Signs - 24 hr 03/26/24 20:00 03/27/24 08:00 Temperature 98.7 F 98.5 F Pulse Rate 83 66 Respiratory Rate 20 Blood Pressure 126/82 112/79 Pulse Oximetry 95 97 Oxygen Delivery Method Room Air Room Air BMI result Body Mass Index 27.3 Labs 03/20/24 18:11 03/20/24 18:11 Medications Medications Current Medications Acetaminophen (Acetaminophen 325 Mg Tablet) 650 mg PO Q6H PRN PRN Reason: Headache/Pain Mild Scale (1-3) Last Admin: 03/25/24 08:52 Dose: 650 mg Al Hydroxide/Mg Hydroxide (Magnesium Hydrox/Alum Hydrox 30 Ml Oral.Susp) 30 ml PO Q6H PRN PRN Reason: Heartburn/Nausea Clomipramine HCl (Clomipramine Hcl 25 Mg Capsule) 75 mg PO TID [facility] Last Admin: 03/27/24 08:40 Dose: 75 mg Diazepam (Diazepam 2 Mg Tablet) 2 mg PO TID [facility] Last Admin: 03/27/24 08:41 Dose: 2 mg Docusate Sodium (Docusate Sodium 100 Mg Capsule) 100 mg PO BID [facility] Last Admin: 03/27/24 08:41 Dose: 100 mg Hydroxyzine HCl (Hydroxyzine Hcl 25 Mg Tablet) 25 mg PO Q6H PRN PRN Reason: Anxiety Last Admin: 03/26/24 10:47 Dose: 25 mg [place] Carbonate ([place] Carbonate 300 Mg Tablet) 300 mg PO BEDTIME [facility] Magnesium Hydroxide (Milk Of Magnesia 30 Ml Oral.Susp) 30 ml PO DAILY PRN PRN Reason: Constipation Last Admin: 03/27/24 09:09 Dose: 30 ml Nicotine (Nicotine 21 Mg Patch.Td24) 21 mg TRANSDERMA DAILY PRN PRN Reason: smoking cessation Nicotine Polacrilex (Nicotine Polacrilex 2 Mg Gum) 4 mg BUCCAL Q2H PRN PRN Reason: Nicotine Cravings Olanzapine (Olanzapine 5 Mg Tablet) 5 mg PO TID PRN PRN Reason: agitation Last Admin: 03/24/24 14:31 Dose: 5 mg Olanzapine (Olanzapine 5 Mg Tablet) 5 mg PO BID [facility] Last Admin: 03/27/24 08:41 Dose: 5 mg Polyethylene Glycol (Polyethylene Glycol 3350 17 Gm Powd.Pack) 17 gm PO DAILY PRN PRN Reason: Constipation Trazodone HCl (Trazodone Hcl 50 Mg Tablet) 50 mg PO BEDTIME MRX1 PRN PRN Reason: Insomnia Last Admin: 03/26/24 19:51 Dose: 50 mg Allergies Allergies Allergy/AdvReac Type Severity Reaction Status Date / Time codeine Allergy Severe Stomach Verified 03/20/24 17:42 Upset Assessment & Plan Assessment & Plan (1) Suicidal ideation: Status: Acute Code(s): R45.851 - Suicidal ideations (2) Depression: Status: Acute Code(s): F32.A - Depression, unspecified (3) OCD (obsessive compulsive disorder): Qualifiers: Obsessive-compulsive disorder type: unspecified Qualified Code(s): F 42.9 - Obsessive-compulsive disorder, unspecified Status: Acute Code(s): F42.9 - Obsessive-compulsive disorder, unspecified Plan Depression, SI, OCD. Hx opiate dependence, currently on Sublocade Plan: Admit, CV, 15 minute checks Collateral Contacts Review med trials with prescriber Valium 2 mg tid prn anxiety Continue Anafranil-pt reports it does help Risperdal 1 mg bid 03/23: Olanzapine prn pt finds helpful-continue TMS consult. 03/25: Continue tx 03/26: Consider increase Li. Continue current management and treatment plan. 03/27: Increase Li to 300 mg HS. Continue other management and treatment plan. Reason for continued inpatient stay Substantial Risk for: harm to self, inability to function and rapid decompensation Time Spent With Patient Time: Total time managing care of this patient today ____ minutes.
[2024-03-27] MEDS: polyethylene glycoL 3350 17 GM POWD.PACK PO (14:09)
[2024-03-27] MEDS: Nicotine Polacrilex 2 MG GUM 4 MG BUCCAL (14:09)
[2024-03-27 20:00] VITALS: BP 129/79; PULSE 83; TEMP 37.1; O2SAT 95
[2024-03-27] MEDS: traZODone HCL 50 MG TABLET PO (20:59)
[2024-03-27] MEDS: Lithium Carbonate 300 MG TABLET PO (20:59)
[2024-03-28 08:00] VITALS: BP 121/81; PULSE 73; RESP 18; TEMP 36.8; O2SAT 98
[2024-03-28] MEDS: Docusate Sodium 100 MG CAPSULE PO ×2 (08:30→20:50)
[2024-03-28] MEDS: OLANZapine 5 MG TABLET PO ×2 (08:30→20:50)
[2024-03-28] MEDS: clomiPRAMINE HCl 25 MG CAPSULE 75 MG PO ×2 (08:30→14:53)
[2024-03-28] MEDS: diazePAM 2 MG TABLET PO ×2 (08:30→14:53)
--- NOTE | 2024-03-28 09:59 | P.PNPSI_ITS ---
Subjective Subjective Date of Service: 03/28/24 Reason For Visit: suicidal Subjective Notes: Conditional Voluntary Healthcare Proxy: No Guardianship: No Medical Problems Affecting Mental Status: No Interim History: Reports some improvement. Review of regime, [place] increased to 300 mg over the weekend, tolerated without adverse effects. Will increase Anafranil to 250 mg this evening and Valium to 3 mg tid. Message left for [facility], Rosa Mcelroy [phone] to discuss her ability to continue prescribing for pt. Attempts to call Bharathi Kelly re [facility] for OCD- [phone]-incorrect #; [phone]-mailbox is full; [phone] is a fax number-unknown if it is his. Discussed discharge for this week. Team is working on out patient resources for pt upon discharge. Medication Compliance: Yes Side effects from medications: No Attending Groups: Yes Review of Systems Acute medical concerns: No Medical Review of Systems: unchanged Review of Systems Review of Systems Yes all other systems are reviewed and are negative Mental Status Exam Mental Status Exam Patient Appearance: Appropriate Patient Orientation: Person, Place, Time and Situation Level of Consciousness: Alert Patient Behavior: Talkative and Good Eye Contact Mood Description: Depressed (7/5) Affect Description: Flat Patient Cognition Impaired: No Ability to Follow Directions: Good Speech Pattern: Spontaneous Speech Memory Description: Intact Hallucinations: None Delusions: Not Present Thought Process: Intact Thought Content: positive for Intact and positive for Goal Oriented Depressive Symptoms: Increased Anxiety Judgement: Good Diagnostics Vital Signs (24Hr): Vital Signs - 24 hr 03/27/24 20:00 03/28/24 08:00 Temperature 98.8 F 98.2 F Pulse Rate 83 73 Respiratory Rate 18 Blood Pressure 129/79 121/81 Pulse Oximetry 95 98 Oxygen Delivery Method Room Air Room Air BMI result Body Mass Index 27.3 Labs 03/20/24 18:11 03/20/24 18:11 Medications Medications Current Medications Acetaminophen (Acetaminophen 325 Mg Tablet) 650 mg PO Q6H PRN PRN Reason: Headache/Pain Mild Scale (1-3) Last Admin: 03/25/24 08:52 Dose: 650 mg Al Hydroxide/Mg Hydroxide (Magnesium Hydrox/Alum Hydrox 30 Ml Oral.Susp) 30 ml PO Q6H PRN PRN Reason: Heartburn/Nausea Clomipramine HCl (Clomipramine Hcl 25 Mg Capsule) 75 mg PO TID [facility] Last Admin: 03/28/24 08:30 Dose: 75 mg Diazepam (Diazepam 2 Mg Tablet) 2 mg PO TID [facility] Last Admin: 03/28/24 08:30 Dose: 2 mg Docusate Sodium (Docusate Sodium 100 Mg Capsule) 100 mg PO BID [facility] Last Admin: 03/28/24 08:30 Dose: 100 mg Hydroxyzine HCl (Hydroxyzine Hcl 25 Mg Tablet) 25 mg PO Q6H PRN PRN Reason: Anxiety Last Admin: 03/26/24 10:47 Dose: 25 mg [place] Carbonate ([place] Carbonate 300 Mg Tablet) 300 mg PO BEDTIME [facility] Last Admin: 03/27/24 20:59 Dose: 300 mg Magnesium Hydroxide (Milk Of Magnesia 30 Ml Oral.Susp) 30 ml PO DAILY PRN PRN Reason: Constipation Last Admin: 03/27/24 09:09 Dose: 30 ml Nicotine (Nicotine 21 Mg Patch.Td24) 21 mg TRANSDERMA DAILY PRN PRN Reason: smoking cessation Nicotine Polacrilex (Nicotine Polacrilex 2 Mg Gum) 4 mg [place] Q2H PRN PRN Reason: Nicotine Cravings Last Admin: 03/27/24 14:09 Dose: 4 mg Olanzapine (Olanzapine 5 Mg Tablet) 5 mg PO TID PRN PRN Reason: agitation Last Admin: 03/24/24 14:31 Dose: 5 mg Olanzapine (Olanzapine 5 Mg Tablet) 5 mg PO BID [facility] Last Admin: 03/28/24 08:30 Dose: 5 mg Polyethylene Glycol (Polyethylene Glycol 3350 17 Gm Powd.Pack) 17 gm PO DAILY PRN PRN Reason: Constipation Last Admin: 03/27/24 14:09 Dose: 17 gm Trazodone HCl (Trazodone Hcl 50 Mg Tablet) 50 mg PO BEDTIME MRX1 PRN PRN Reason: Insomnia Last Admin: 03/27/24 20:59 Dose: 50 mg Allergies Allergies Allergy/AdvReac Type Severity Reaction Status Date / Time codeine Allergy Severe Stomach Verified 03/20/24 17:42 Upset Assessment & Plan Assessment & Plan (1) Suicidal ideation: Status: Acute Code(s): R45.851 - Suicidal ideations (2) Depression: Status: Acute Code(s): F32.A - Depression, unspecified (3) OCD (obsessive compulsive disorder): Qualifiers: Obsessive-compulsive disorder type: unspecified Qualified Code(s): F 42.9 - Obsessive-compulsive disorder, unspecified Status: Acute Code(s): F42.9 - Obsessive-compulsive disorder, unspecified Plan Depression, SI, OCD. Hx opiate dependence, currently on Sublocade Plan: Admit, CV, 15 minute checks Collateral Contacts Review med trials with prescriber Valium 2 mg tid prn anxiety Continue Anafranil-pt reports it does help Risperdal 1 mg bid 03/23: Olanzapine prn pt finds helpful-continue TMS consult. 03/25: Continue tx 03/26: Consider increase Li. Continue current management and treatment plan. 03/27: Increase Li to 300 mg HS. Continue other management and treatment plan. 03/28: Increase Anafranil to 250 mg daily- 75/75/100 Increase Valium to 3 mg tid Informed Consent: understands Reason for continued inpatient stay Substantial Risk for: rapid decompensation Time Spent With Patient Time: Total time managing care of this patient today ____ minutes.
[2024-03-28] MEDS: Nicotine Polacrilex 2 MG GUM 4 MG BUCCAL (15:58)
[2024-03-28 19:44] VITALS: BP 159/86; PULSE 95; RESP 16; TEMP 36.9; O2SAT 97
[2024-03-28] MEDS: clomiPRAMINE HCl 25 MG CAPSULE 100 MG PO (20:49)
[2024-03-28] MEDS: Lithium Carbonate 300 MG TABLET PO (20:50)
[2024-03-28] MEDS: diazePAM 2 MG TABLET 3 MG PO (20:50)
[2024-03-28] MEDS: Mirtazapine 7.5 MG TABLET PO (20:53)
[2024-03-29 07:56] VITALS: BP 133/79; PULSE 67; RESP 16; TEMP 36.7; O2SAT 95
[2024-03-29] MEDS: diazePAM 2 MG TABLET 3 MG PO ×3 (08:24→20:43)
[2024-03-29] MEDS: clomiPRAMINE HCl 25 MG CAPSULE 75 MG PO ×2 (08:24→14:26)
[2024-03-29] MEDS: Docusate Sodium 100 MG CAPSULE PO ×2 (08:24→20:42)
[2024-03-29] MEDS: OLANZapine 5 MG TABLET PO ×2 (08:25→20:43)
--- NOTE | 2024-03-29 16:08 | P.PNPSI_ITS ---
Subjective Subjective Date of Service: 03/29/24 Reason For Visit: suicidal Subjective Notes: Conditional Voluntary Healthcare Proxy: No Guardianship: No Medical Problems Affecting Mental Status: No Interim History: Tolerating med changes Visable in the milieu. We continue to attempt to reach OP Team to discuss their ability to continue to care for pt. Message left for therapist, Marco [phone] Message left for prescriber, Gwyn [phone] Medication Compliance: Yes Side effects from medications: No Attending Groups: Intermittent Review of Systems Acute medical concerns: No Review of Systems Review of Systems Yes all other systems are reviewed and are negative Mental Status Exam Mental Status Exam Patient Appearance: Appropriate Patient Orientation: Person, Place, Time and Situation Level of Consciousness: Alert Patient Behavior: Talkative and Good Eye Contact Mood Description: Depressed (7/5) Affect Description: Flat Patient Cognition Impaired: No Ability to Follow Directions: Good Speech Pattern: Spontaneous Speech Memory Description: Intact Hallucinations: None Delusions: Not Present Thought Process: Intact Thought Content: positive for Intact and positive for Goal Oriented Depressive Symptoms: Increased Anxiety Judgement: Good Diagnostics Vital Signs (24Hr): Vital Signs - 24 hr 03/28/24 19:44 03/29/24 07:56 Temperature 98.5 F 98.1 F Pulse Rate 95 67 Respiratory Rate 16 16 Blood Pressure 159/86 H 133/79 Pulse Oximetry 97 95 Oxygen Delivery Method Room Air Room Air BMI result Body Mass Index 27.3 Labs 03/20/24 18:11 03/20/24 18:11 Medications Medications Current Medications Acetaminophen (Acetaminophen 325 Mg Tablet) 650 mg PO Q6H PRN PRN Reason: Headache/Pain Mild Scale (1-3) Last Admin: 03/25/24 08:52 Dose: 650 mg Al Hydroxide/Mg Hydroxide (Magnesium Hydrox/Alum Hydrox 30 Ml Oral.Susp) 30 ml PO Q6H PRN PRN Reason: Heartburn/Nausea Bisacodyl (Bisacodyl 5 Mg Tablet.Dr) 10 mg PO BEDTIME PRN PRN Reason: Constipation Clomipramine HCl (Clomipramine Hcl 25 Mg Capsule) 75 mg PO 0900,1400 [facility] Last Admin: 03/29/24 14:26 Dose: 75 mg Clomipramine HCl (Clomipramine Hcl 25 Mg Capsule) 100 mg PO BEDTIME [facility] Last Admin: 03/28/24 20:49 Dose: 100 mg Diazepam (Diazepam 2 Mg Tablet) 3 mg PO TID [facility] Last Admin: 03/29/24 14:26 Dose: 3 mg Docusate Sodium (Docusate Sodium 100 Mg Capsule) 100 mg PO BID [facility] Last Admin: 03/29/24 08:24 Dose: 100 mg Hydroxyzine HCl (Hydroxyzine Hcl 25 Mg Tablet) 25 mg PO Q6H PRN PRN Reason: Anxiety Last Admin: 03/26/24 10:47 Dose: 25 mg [place] Carbonate ([place] Carbonate 300 Mg Tablet) 300 mg PO BEDTIME [facility] Last Admin: 03/28/24 20:50 Dose: 300 mg Magnesium Hydroxide (Milk Of Magnesia 30 Ml Oral.Susp) 30 ml PO DAILY PRN PRN Reason: Constipation Last Admin: 03/27/24 09:09 Dose: 30 ml Mirtazapine (Mirtazapine 7.5 Mg Tablet) 7.5 mg PO BEDTIME PRN PRN Reason: sleep Last Admin: 03/28/24 20:53 Dose: 7.5 mg Nicotine (Nicotine 21 Mg Patch.Td24) 21 mg TRANSDERMA DAILY PRN PRN Reason: smoking cessation Nicotine Polacrilex (Nicotine Polacrilex 2 Mg Gum) 4 mg [place] Q2H PRN PRN Reason: Nicotine Cravings Last Admin: 03/28/24 15:58 Dose: 4 mg Olanzapine (Olanzapine 5 Mg Tablet) 5 mg PO TID PRN PRN Reason: agitation Last Admin: 03/24/24 14:31 Dose: 5 mg Olanzapine (Olanzapine 5 Mg Tablet) 5 mg PO BID [facility] Last Admin: 03/29/24 08:25 Dose: 5 mg Polyethylene Glycol (Polyethylene Glycol 3350 17 Gm Powd.Pack) 17 gm PO DAILY PRN PRN Reason: Constipation Last Admin: 03/27/24 14:09 Dose: 17 gm Allergies Allergies Allergy/AdvReac Type Severity Reaction Status Date / Time codeine Allergy Severe Stomach Verified 03/20/24 17:42 Upset Assessment & Plan Assessment & Plan (1) Suicidal ideation: Status: Acute Code(s): R45.851 - Suicidal ideations (2) Depression: Status: Acute Code(s): F32.A - Depression, unspecified (3) OCD (obsessive compulsive disorder): Qualifiers: Obsessive-compulsive disorder type: unspecified Qualified Code(s): F 42.9 - Obsessive-compulsive disorder, unspecified Status: Acute Code(s): F42.9 - Obsessive-compulsive disorder, unspecified Plan Depression, SI, OCD. Hx opiate dependence, currently on Sublocade Plan: Admit, CV, 15 minute checks Collateral Contacts Review med trials with prescriber Valium 2 mg tid prn anxiety Continue Anafranil-pt reports it does help Risperdal 1 mg bid 03/23: Olanzapine prn pt finds helpful-continue TMS consult. 03/25: Continue tx 03/26: Consider increase Li. Continue current management and treatment plan. 03/27: Increase Li to 300 mg HS. Continue other management and treatment plan. 03/29: Continue regime. Reason for continued inpatient stay Substantial Risk for: rapid decompensation Time Spent With Patient Time: Total time managing care of this patient today ____ minutes.
[2024-03-29 20:00] VITALS: BP 109/70; PULSE 106; TEMP 37.1; O2SAT 96
[2024-03-29] MEDS: clomiPRAMINE HCl 25 MG CAPSULE 100 MG PO (20:42)
[2024-03-29] MEDS: Lithium Carbonate 300 MG TABLET PO (20:42)
[2024-03-29] MEDS: bisacodyL 5 MG TABLET.DR 10 MG PO (20:43)
[2024-03-29] MEDS: Mirtazapine 7.5 MG TABLET PO (20:46)
[2024-03-30 08:01] VITALS: BP 120/72; PULSE 72; RESP 16; TEMP 36.9; O2SAT 95
[2024-03-30] MEDS: diazePAM 2 MG TABLET 3 MG PO ×3 (08:32→20:40)
[2024-03-30] MEDS: clomiPRAMINE HCl 25 MG CAPSULE 75 MG PO ×2 (08:32→15:49)
[2024-03-30] MEDS: Docusate Sodium 100 MG CAPSULE PO ×2 (08:33→20:40)
[2024-03-30] MEDS: OLANZapine 5 MG TABLET PO ×2 (08:33→20:41)
[2024-03-30] MEDS: Lactulose 20 GM/30 ML SOLUTION 30 GM PO (10:55)
--- NOTE | 2024-03-30 16:51 | HO.PSYCHPN ---
Subjective Subjective Date of Service: 03/30/24 Reason For Visit: suicidal Subjective Notes: Conditional Voluntary Healthcare Proxy: No Guardianship: No Medical Problems Affecting Mental Status: No Interim History: Some improvement with meds. Will add 150 mg [place] in the a.m. Depression improved Reports constipation-lactulose ordered Will DC over the weekend. Pt left a message for OP prescriber who cannot continue with him as she is telehealth and cannot manage [place] or benzodiazepines. We are searching for a new provider. Medication Compliance: Yes Side effects from medications: Yes (constipation) Attending Groups: Intermittent Review of Systems Acute medical concerns: No Medical Review of Systems: unchanged Review of Systems Review of Systems constipation Mental Status Exam Mental Status Exam Patient Appearance: Appropriate Patient Orientation: Person, Place, Time and Situation Level of Consciousness: Alert Patient Behavior: Talkative and Good Eye Contact Mood Description: Depressed (7/5) Affect Description: Flat Patient Cognition Impaired: No Ability to Follow Directions: Good Speech Pattern: Spontaneous Speech Memory Description: Intact Hallucinations: None Delusions: Not Present Thought Process: Intact Thought Content: positive for Intact and positive for Goal Oriented Depressive Symptoms: Increased Anxiety Judgement: Good Diagnostics Vital Signs (24Hr): Vital Signs - 24 hr 03/29/24 20:00 03/30/24 08:01 Temperature 98.8 F 98.4 F Pulse Rate 106 H 72 Respiratory Rate 16 Blood Pressure 109/70 120/72 Pulse Oximetry 96 95 Oxygen Delivery Method Room Air Room Air BMI result Body Mass Index 27.3 Labs 03/20/24 18:11 03/20/24 18:11 Medications Medications Current Medications Acetaminophen (Acetaminophen 325 Mg Tablet) 650 mg PO Q6H PRN PRN Reason: Headache/Pain Mild Scale (1-3) Last Admin: 03/25/24 08:52 Dose: 650 mg Al Hydroxide/Mg Hydroxide (Magnesium Hydrox/Alum Hydrox 30 Ml Oral.Susp) 30 ml PO Q6H PRN PRN Reason: Heartburn/Nausea Bisacodyl (Bisacodyl 5 Mg Tablet.Dr) 10 mg PO BEDTIME PRN PRN Reason: Constipation Last Admin: 03/29/24 20:43 Dose: 10 mg Clomipramine HCl (Clomipramine Hcl 25 Mg Capsule) 75 mg PO 0900,1400 [facility] Last Admin: 03/30/24 15:49 Dose: 75 mg Clomipramine HCl (Clomipramine Hcl 25 Mg Capsule) 100 mg PO BEDTIME [facility] Last Admin: 03/29/24 20:42 Dose: 100 mg Diazepam (Diazepam 2 Mg Tablet) 3 mg PO TID [facility] Last Admin: 03/30/24 15:49 Dose: 3 mg Docusate Sodium (Docusate Sodium 100 Mg Capsule) 100 mg PO BID [facility] Last Admin: 03/30/24 08:33 Dose: 100 mg Hydrocortisone (Hydrocortisone 1 % Cream 28.35 Gm Tube) 1 appl TOPICAL BID PRN; Protocol PRN Reason: eczema Hydroxyzine HCl (Hydroxyzine Hcl 25 Mg Tablet) 25 mg PO Q6H PRN PRN Reason: Anxiety Last Admin: 03/26/24 10:47 Dose: 25 mg [place] Carbonate ([place] Carbonate 300 Mg Tablet) 300 mg PO BEDTIME [facility] Last Admin: 03/29/24 20:42 Dose: 300 mg Magnesium Hydroxide (Milk Of Magnesia 30 Ml Oral.Susp) 30 ml PO DAILY PRN PRN Reason: Constipation Last Admin: 03/27/24 09:09 Dose: 30 ml Mirtazapine (Mirtazapine 7.5 Mg Tablet) 7.5 mg PO BEDTIME PRN PRN Reason: sleep Last Admin: 03/29/24 20:46 Dose: 7.5 mg Nicotine (Nicotine 21 Mg Patch.Td24) 21 mg TRANSDERMA DAILY PRN PRN Reason: smoking cessation Nicotine Polacrilex (Nicotine Polacrilex 2 Mg Gum) 4 mg [place] Q2H PRN PRN Reason: Nicotine Cravings Last Admin: 03/28/24 15:58 Dose: 4 mg Olanzapine (Olanzapine 5 Mg Tablet) 5 mg PO TID PRN PRN Reason: agitation Last Admin: 03/24/24 14:31 Dose: 5 mg Olanzapine (Olanzapine 5 Mg Tablet) 5 mg PO BID [facility] Last Admin: 03/30/24 08:33 Dose: 5 mg Polyethylene Glycol (Polyethylene Glycol 3350 17 Gm Powd.Pack) 17 gm PO DAILY PRN PRN Reason: Constipation Last Admin: 03/27/24 14:09 Dose: 17 gm Allergies Allergies Allergy/AdvReac Type Severity Reaction Status Date / Time codeine Allergy Severe Stomach Verified 03/20/24 17:42 Upset Assessment & Plan Assessment & Plan (1) Suicidal ideation: Status: Acute Code(s): R45.851 - Suicidal ideations (2) Depression: Status: Acute Code(s): F32.A - Depression, unspecified (3) OCD (obsessive compulsive disorder): Qualifiers: Obsessive-compulsive disorder type: unspecified Qualified Code(s): F42.9 - Obsessive-compulsive disorder, unspecified Status: Acute Code(s): F42.9 - Obsessive-compulsive disorder, unspecified Plan Depression, SI, OCD. Hx opiate dependence, currently on Sublocade Plan: Admit, CV, 15 minute checks Collateral Contacts Review med trials with prescriber Valium 2 mg tid prn anxiety Continue Anafranil-pt reports it does help Risperdal 1 mg bid 03/23: Olanzapine prn pt finds helpful-continue TMS consult. 03/25: Continue tx 03/26: Consider increase Li. Continue current management and treatment plan. 03/27: Increase Li to 300 mg HS. Continue other management and treatment plan. 03/29: Continue regime. 03/30: [place] 150 mg a.m. Lactulose for constipation Reason for continued inpatient stay Substantial Risk for: rapid decompensation Time Spent With Patient Time: Total time managing care of this patient today ____ minutes.
[2024-03-30 20:00] VITALS: BP 110/58; PULSE 93; TEMP 36.7; O2SAT 93
[2024-03-30] MEDS: Lithium Carbonate 300 MG TABLET PO (20:40)
[2024-03-30] MEDS: Mirtazapine 7.5 MG TABLET PO (21:03)
[2024-03-30] MEDS: clomiPRAMINE HCl 25 MG CAPSULE 100 MG PO (21:03)
[2024-03-31 08:46] VITALS: BP 123/62; PULSE 73; TEMP 37.5; O2SAT 97
[2024-03-31] MEDS: diazePAM 2 MG TABLET 3 MG PO ×3 (09:19→21:53)
[2024-03-31] MEDS: Lithium Carbonate 300 MG TABLET 150 MG PO (09:20)
[2024-03-31] MEDS: Docusate Sodium 100 MG CAPSULE PO ×2 (09:21→21:54)
[2024-03-31] MEDS: clomiPRAMINE HCl 25 MG CAPSULE 75 MG PO ×2 (09:22→13:53)
[2024-03-31] MEDS: OLANZapine 5 MG TABLET PO ×2 (09:52→21:55)
[2024-03-31 09:56] VITALS: BMI 28.3
--- NOTE | 2024-03-31 16:20 | P.PNPSI_ITS ---
Subjective Subjective Date of Service: 03/31/24 Reason For Visit: suicidal Subjective Notes: Conditional Voluntary Interim History: Reports some increase in sx of depression, grief, sadness as mother visited last evening and this brought back memories of giving up his puppy. Agrees to labs to check [place], Clomipramine Discussed wanting to leave on 04/02 to help prepare for his sister's baby shower. Discussed bridge appt at [facility] as pt's prescriber, Rosa Mcelroy does not feel comfortable with prescribing current regime via telehealth . Pt has contacted his therapist to see if he has suggestions for prescribers moving forward. Team has also several calls out for potential prescribers. Medication Compliance: Yes Side effects from medications: No Attending Groups: Yes Review of Systems Acute medical concerns: No Medical Review of Systems: unchanged Review of Systems Review of Systems Yes all other systems are reviewed and are negative Mental Status Exam Mental Status Exam Patient Appearance: Appropriate Patient Orientation: Person, Place, Time and Situation Level of Consciousness: Alert Patient Behavior: Talkative and Good Eye Contact Mood Description: Depressed Affect Description: Flat Patient Cognition Impaired: No Ability to Follow Directions: Good Speech Pattern: Spontaneous Speech Memory Description: Intact Hallucinations: None Delusions: Not Present Thought Process: Intact Thought Content: positive for Intact and positive for Goal Oriented Depressive Symptoms: Increased Anxiety Judgement: Good Diagnostics Vital Signs (24Hr): Vital Signs - 24 hr 03/30/24 20:00 03/31/24 08:46 Temperature 98.1 F 99.5 F Pulse Rate 93 73 Blood Pressure 110/58 L 123/62 Pulse Oximetry 93 97 Oxygen Delivery Method Room Air Room Air BMI result Body Mass Index 28.3 Labs 03/20/24 18:11 03/20/24 18:11 Medications Medications Current Medications Acetaminophen (Acetaminophen 325 Mg Tablet) 650 mg PO Q6H PRN PRN Reason: Headache/Pain Mild Scale (1-3) Last Admin: 03/25/24 08:52 Dose: 650 mg Al Hydroxide/Mg Hydroxide (Magnesium Hydrox/Alum Hydrox 30 Ml Oral.Susp) 30 ml PO Q6H PRN PRN Reason: Heartburn/Nausea Bisacodyl (Bisacodyl 5 Mg Tablet.Dr) 10 mg PO BEDTIME PRN PRN Reason: Constipation Last Admin: 03/29/24 20:43 Dose: 10 mg Clomipramine HCl (Clomipramine Hcl 25 Mg Capsule) 75 mg PO 0900,1400 [facility] Last Admin: 03/31/24 13:53 Dose: 75 mg Clomipramine HCl (Clomipramine Hcl 25 Mg Capsule) 100 mg PO BEDTIME [facility] Last Admin: 03/30/24 21:03 Dose: 100 mg Diazepam (Diazepam 2 Mg Tablet) 3 mg PO TID [facility] Last Admin: 03/31/24 14:26 Dose: 3 mg Docusate Sodium (Docusate Sodium 100 Mg Capsule) 100 mg PO BID [facility] Last Admin: 03/31/24 09:21 Dose: 100 mg Hydrocortisone (Hydrocortisone 1 % Cream 28.35 Gm Tube) 1 appl TOPICAL BID PRN; Protocol PRN Reason: eczema Hydroxyzine HCl (Hydroxyzine Hcl 25 Mg Tablet) 25 mg PO Q6H PRN PRN Reason: Anxiety Last Admin: 03/26/24 10:47 Dose: 25 mg [place] Carbonate ([place] Carbonate 300 Mg Tablet) 300 mg PO BEDTIME [facility] Last Admin: 03/30/24 20:40 Dose: 300 mg [place] Carbonate ([place] Carbonate 300 Mg Tablet) 150 mg PO DAILY [facility] Last Admin: 03/31/24 09:20 Dose: 150 mg Magnesium Hydroxide (Milk Of Magnesia 30 Ml Oral.Susp) 30 ml PO DAILY PRN PRN Reason: Constipation Last Admin: 03/27/24 09:09 Dose: 30 ml Mirtazapine (Mirtazapine 7.5 Mg Tablet) 7.5 mg PO BEDTIME PRN PRN Reason: sleep Last Admin: 03/30/24 21:03 Dose: 7.5 mg Nicotine (Nicotine 21 Mg Patch.Td24) 21 mg TRANSDERMA DAILY PRN PRN Reason: smoking cessation Nicotine Polacrilex (Nicotine Polacrilex 2 Mg Gum) 4 mg BUCCAL Q2H PRN PRN Reason: Nicotine Cravings Last Admin: 03/28/24 15:58 Dose: 4 mg Olanzapine (Olanzapine 5 Mg Tablet) 5 mg PO TID PRN PRN Reason: agitation Last Admin: 03/24/24 14:31 Dose: 5 mg Olanzapine (Olanzapine 5 Mg Tablet) 5 mg PO BID [facility] Last Admin: 03/31/24 09:52 Dose: 5 mg Polyethylene Glycol (Polyethylene Glycol 3350 17 Gm Powd.Pack) 17 gm PO DAILY PRN PRN Reason: Constipation Last Admin: 03/27/24 14:09 Dose: 17 gm Allergies Allergies Allergy/AdvReac Type Severity Reaction Status Date / Time codeine Allergy Severe Stomach Verified 03/20/24 17:42 Upset Assessment & Plan Assessment & Plan (1) Suicidal ideation: Status: Acute Code(s): R45.851 - Suicidal ideations (2) Depression: Status: Acute Code(s): F32.A - Depression, unspecified (3) OCD (obsessive compulsive disorder): Qualifiers: Obsessive-compulsive disorder type: unspecified Qualified Code(s): F 42.9 - Obsessive-compulsive disorder, unspecified Status: Acute Code(s): F42.9 - Obsessive-compulsive disorder, unspecified Plan Depression, SI, OCD. Hx opiate dependence, currently on Sublocade Plan: Admit, CV, 15 minute checks Collateral Contacts Review med trials with prescriber Valium 2 mg tid prn anxiety Continue Anafranil-pt reports it does help Risperdal 1 mg bid 03/23: Olanzapine prn pt finds helpful-continue TMS consult. 03/25: Continue tx 03/26: Consider increase Li. Continue current management and treatment plan. 03/27: Increase Li to 300 mg HS. Continue other management and treatment plan. 03/29: Continue regime. 03/31: Continue regime. Reason for continued inpatient stay Substantial Risk for: rapid decompensation Time Spent With Patient Time: Total time managing care of this patient today ____ minutes.
[2024-03-31 20:00] VITALS: BP 135/68; PULSE 82; TEMP 36.5; O2SAT 97
[2024-03-31] MEDS: clomiPRAMINE HCl 25 MG CAPSULE 100 MG PO (21:54)
[2024-03-31] MEDS: Mirtazapine 7.5 MG TABLET PO (21:55)
[2024-03-31] MEDS: Lithium Carbonate 300 MG TABLET PO (21:55)
[2024-04-01 07:56] VITALS: BP 121/66; PULSE 84; TEMP 36.9; O2SAT 93
[2024-04-01 08:21] VITALS: PULSE 98; O2SAT 95
[2024-04-01] MEDS: clomiPRAMINE HCl 25 MG CAPSULE 75 MG PO ×2 (08:56→14:42)
[2024-04-01] MEDS: OLANZapine 5 MG TABLET PO ×2 (08:57→21:10)
[2024-04-01] MEDS: Docusate Sodium 100 MG CAPSULE PO ×2 (08:57→21:09)
[2024-04-01] MEDS: Lithium Carbonate 300 MG TABLET 150 MG PO (08:58)
[2024-04-01] MEDS: diazePAM 2 MG TABLET 3 MG PO ×3 (08:58→21:10)
[2024-04-01 09:23] LABS: Lithium 0.33 mmol/L (0.60-1.20)
--- NOTE | 2024-04-01 12:44 | HO.PSYCHPN ---
Subjective Subjective Date of Service: 04/01/24 Reason For Visit: suicidal Subjective Notes: Conditional Voluntary Healthcare Proxy: No Guardianship: No Medical Problems Affecting Mental Status: No Interim History: Pt reports he is prepared for discharge, although still depressed, denies SI/HI/AH/VH. There are no sx of psychosis, mariana. Pt does report overall improvement Medication Compliance: Yes Side effects from medications: No Attending Groups: Yes Review of Systems Acute medical concerns: No Medical Review of Systems: unchanged Review of Systems Review of Systems Yes all other systems are reviewed and are negative Mental Status Exam Mental Status Exam Patient Appearance: Appropriate Patient Orientation: Person, Place, Time and Situation Level of Consciousness: Alert Patient Behavior: Talkative and Good Eye Contact Mood Description: Depressed Affect Description: Flat Patient Cognition Impaired: No Ability to Follow Directions: Good Speech Pattern: Spontaneous Speech Memory Description: Intact Hallucinations: None Delusions: Not Present Thought Process: Intact Thought Content: positive for Intact and positive for Goal Oriented Depressive Symptoms: Increased Anxiety Judgement: Good Diagnostics Vital Signs (24Hr): Vital Signs - 24 hr 03/31/24 20:00 04/01/24 07:56 04/01/24 08:21 Temperature 97.7 F 98.4 F Pulse Rate 82 84 98 Blood Pressure 135/68 121/66 Pulse Oximetry 97 93 95 Oxygen Delivery Method Room Air Room Air Room Air BMI result Body Mass Index 28.3 Labs 03/20/24 18:11 03/20/24 18:11 Labs: Laboratory Results - last 48 hr 04/01/24 08:36 [place] 0.33 L Medications Medications Current Medications Acetaminophen (Acetaminophen 325 Mg Tablet) 650 mg PO Q6H PRN PRN Reason: Headache/Pain Mild Scale (1-3) Last Admin: 03/25/24 08:52 Dose: 650 mg Al Hydroxide/Mg Hydroxide (Magnesium Hydrox/Alum Hydrox 30 Ml Oral.Susp) 30 ml PO Q6H PRN PRN Reason: Heartburn/Nausea Bisacodyl (Bisacodyl 5 Mg Tablet.Dr) 10 mg PO BEDTIME PRN PRN Reason: Constipation Last Admin: 03/29/24 20:43 Dose: 10 mg Clomipramine HCl (Clomipramine Hcl 25 Mg Capsule) 75 mg PO 0900,1400 [facility] Last Admin: 04/01/24 08:56 Dose: 75 mg Clomipramine HCl (Clomipramine Hcl 25 Mg Capsule) 100 mg PO BEDTIME [facility] Last Admin: 03/31/24 21:54 Dose: 100 mg Diazepam (Diazepam 2 Mg Tablet) 3 mg PO TID [facility] Last Admin: 04/01/24 08:58 Dose: 3 mg Docusate Sodium (Docusate Sodium 100 Mg Capsule) 100 mg PO BID [facility] Last Admin: 04/01/24 08:57 Dose: 100 mg Hydrocortisone (Hydrocortisone 1 % Cream 28.35 Gm Tube) 1 appl TOPICAL BID PRN; Protocol PRN Reason: eczema Hydroxyzine HCl (Hydroxyzine Hcl 25 Mg Tablet) 25 mg PO Q6H PRN PRN Reason: Anxiety Last Admin: 03/26/24 10:47 Dose: 25 mg [place] Carbonate ([place] Carbonate 300 Mg Tablet) 300 mg PO BEDTIME [facility] Last Admin: 03/31/24 21:55 Dose: 300 mg [place] Carbonate ([place] Carbonate 300 Mg Tablet) 150 mg PO DAILY [facility] Last Admin: 04/01/24 08:58 Dose: 150 mg Magnesium Hydroxide (Milk Of Magnesia 30 Ml Oral.Susp) 30 ml PO DAILY PRN PRN Reason: Constipation Last Admin: 03/27/24 09:09 Dose: 30 ml Mirtazapine (Mirtazapine 7.5 Mg Tablet) 7.5 mg PO BEDTIME PRN PRN Reason: sleep Last Admin: 03/31/24 21:55 Dose: 7.5 mg Nicotine (Nicotine 21 Mg Patch.Td24) 21 mg TRANSDERMA DAILY PRN PRN Reason: smoking cessation Nicotine Polacrilex (Nicotine Polacrilex 2 Mg Gum) 4 mg BUCCAL Q2H PRN PRN Reason: Nicotine Cravings Last Admin: 03/28/24 15:58 Dose: 4 mg Olanzapine (Olanzapine 5 Mg Tablet) 5 mg PO TID PRN PRN Reason: agitation Last Admin: 03/24/24 14:31 Dose: 5 mg Olanzapine (Olanzapine 5 Mg Tablet) 5 mg PO BID [facility] Last Admin: 04/01/24 08:57 Dose: 5 mg Polyethylene Glycol (Polyethylene Glycol 3350 17 Gm Powd.Pack) 17 gm PO DAILY PRN PRN Reason: Constipation Last Admin: 03/27/24 14:09 Dose: 17 gm Allergies Allergies Allergy/AdvReac Type Severity Reaction Status Date / Time codeine Allergy Severe Stomach Verified 03/20/24 17:42 Upset Assessment & Plan Assessment & Plan (1) Suicidal ideation: Status: Acute Code(s): R45.851 - Suicidal ideations (2) Depression: Status: Acute Code(s): F32.A - Depression, unspecified (3) OCD (obsessive compulsive disorder): Qualifiers: Obsessive-compulsive disorder type: unspecified Qualified Code(s): F42.9 - Obsessive-compulsive disorder, unspecified Status: Acute Code(s): F42.9 - Obsessive-compulsive disorder, unspecified Plan Depression, SI, OCD. Hx opiate dependence, currently on Sublocade Plan: Admit, CV, 15 minute checks Collateral Contacts Review med trials with prescriber Valium 2 mg tid prn anxiety Continue Anafranil-pt reports it does help Risperdal 1 mg bid 03/23: Olanzapine prn pt finds helpful-continue TMS consult. 03/25: Continue tx 03/26: Consider increase Li. Continue current management and treatment plan. 03/27: Increase Li to 300 mg HS. Continue other management and treatment plan. 03/29: Continue regime. 03/30: [place] 150 mg a.m. Lactulose for constipation 04/01: Discharge to home 04/02 Bridge appt with [facility] Will continue search for out pt prescriber for pt upon discharge. Reason for continued inpatient stay Substantial Risk for: stable for discharge Time Spent With Patient Time: Total time managing care of this patient today ____ minutes.
[2024-04-01 20:00] VITALS: BP 104/53; PULSE 89; RESP 16; TEMP 36.4; O2SAT 94
[2024-04-01] MEDS: Lithium Carbonate 300 MG TABLET PO (21:10)
[2024-04-01] MEDS: Mirtazapine 7.5 MG TABLET PO (21:10)
[2024-04-01] MEDS: clomiPRAMINE HCl 25 MG CAPSULE 100 MG PO (21:10)
[2024-04-02] MEDS: Docusate Sodium 100 MG CAPSULE PO (08:47)
[2024-04-02] MEDS: Lithium Carbonate 300 MG TABLET 150 MG PO (08:47)
[2024-04-02] MEDS: diazePAM 2 MG TABLET 3 MG PO (08:47)
[2024-04-06 04:53] LABS: Clomipramine 332 mcg/L (50-250); Clomipramine + Desmethylclom 569 mcg/L (200-600); Desmethylclomipramine 237 mcg/L (150-350)
--- NOTE | 2024-04-11 17:27 | P.DS_ITS ---
DS: Providers Provider Date of Service: 04/02/24 Date of admission: 03/21/24 14:30 Date of discharge: 04/02/24 Primary care physician: Unknown Physician Admitting clinician: Jeanna Faust Attending physician on admission: Robin Mao Consults: 03/23/24 12:44 Consult to Psychiatry Routine Consulting Provider: Robin Mao Reason for consultation: Severe OCD. TMS Consultation request 04/01/24 17:13 Consult to Hospitalist Routine Comment: Consulting Provider: Hospitalist Reason For Exam: L ankle, ?beginning cellulitis-pt reports new area Attending physician on discharge: Robin Mao Discharging clinician: Jeanna Faust DS: Diagnosis Discharge Diagnosis (1) Suicidal ideation: Status: Resolved (2) Depression: Status: Acute (3) OCD (obsessive compulsive disorder): Status: Acute DS: Medications Discharge Medications Home Medications: Home Medications ?Medication ?Instructions ?Recorded ?Confirmed buprenorphine 100 mg/0.5 mL 100 mg subcut Q28D 03/21/24 03/21/24 solution,exten.rel.subcutaneous syringe (Sublocade) Previous Rx's ?Medication ?Instructions ?Recorded clomipramine 50 mg capsule 100 mg (2 x 50 mg) PO BEDTIME #60 04/01/24 caps clomipramine 75 mg capsule 75 mg PO BID #60 caps 04/01/24 docusate sodium 100 mg capsule 100 mg PO BID #60 caps 04/01/24 lithium carbonate 300 mg tablet 300 mg PO BEDTIME #30 tabs 04/01/24 mirtazapine 7.5 mg tablet 7.5 mg PO BEDTIME PRN sleep #30 04/01/24 tabs olanzapine 5 mg tablet 5 mg PO BID #60 tabs 04/01/24 polyethylene glycol 3350 17 gram 17 g PO DAILY PRN Constipation #30 04/01/24 oral powder packet packets lithium carbonate 150 mg capsule 150 mg PO DAILY #30 caps 04/04/24 diazepam 2 mg tablet 3 mg (1.5 x 2 mg) PO TID #32 tabs 04/06/24 Mental Status Exam Mental Status Exam Patient Appearance: Appropriate Patient Orientation: Person, Place, Time and Situation Level of Consciousness: Alert Patient Behavior: Talkative and Good Eye Contact Mood Description: Depressed Affect Description: Flat Patient Cognition Impaired: No Ability to Follow Directions: Good Speech Pattern: Spontaneous Speech Memory Description: Intact Hallucinations: None Delusions: Not Present Thought Process: Intact Thought Content: positive for Intact and positive for Goal Oriented Depressive Symptoms: Increased Anxiety Judgement: Good Data Data Completed and Pending Completed studies during hospitalization [Text1]: 04/01/24 08:36 Clomipramine 332 H Desmethylclomipramine 237 Clomipramine&N-Desclom 569 DS: Summary Hospital Course Hospital Course: Admission to adult psychiatry for exacerbation of recurrent major depression with SI, OCD. Opiate use disorder treated with Sublicade. Pt reports a 20 year hx of OCD. Precipitant he reports is exacerbating sx which were so strong it forced him to give away a puppy he loved to a [place] [facility]. He also reports decreased communication with colleagues and isolation. Sx he reports have become embodied and the physical pain of the anxiety he feels he was unable to tolerate. Medications were evaluated and adjusted. Pt was encouraged to utilize the milieu which he did. He will return to his therapist and to [facility] for medication review. We currently have several calls out to locate a prescriber for he regime and treatment of OCD> Status at Discharge Functional status at discharge: independent ambulation Overall status at discharge: patient is progressing back to baseline Time Spent with Patient Time attestation: Total time managing care of this patient today ____ minutes. Time spent: Less than 30 minutes Discharge Plan Discharge Anticipated Discharge Date/Time: 04/02/24 12:00 Patient Disposition: Home, Self-Care Discharge Diagnosis: Recurrent Major Depression Obsessive Compulsive Disorder Opiate Use Disorder-Sublocade pt. Referrals: PIO NORMAN APRN MEDICATION MANAGEMENT [Other] - 04/21/24 2:30 pm (IN PERSON) [facility]. THERAPIST [Other] - 1 Week (PLEASE CALL FOR YOUR NEXT APPOINTMENT.) Physician,Unknown J [Primary Care Provider] - 1 Week Discharge Medications: New lithium carbonate 300 mg Tablet 300 mg PO BEDTIME Qty: 30 0RF polyethylene glycol 3350 17 gram Powder In Packet 17 g PO DAILY PRN (Reason: Constipation) Qty: 30 0RF olanzapine 5 mg Tablet 5 mg PO BID Qty: 60 0RF docusate sodium 100 mg Capsule 100 mg PO BID Qty: 60 0RF mirtazapine 7.5 mg Tablet 7.5 mg PO BEDTIME PRN (Reason: sleep) Qty: 30 0RF clomipramine 75 mg capsule 75 mg PO BID Qty: 60 0RF clomipramine 50 mg capsule 100 mg PO BEDTIME Qty: 60 0RF lithium carbonate 150 mg capsule 150 mg PO DAILY Qty: 30 0RF diazepam 2 mg tablet 3 mg PO TID Qty: 32 3RF Continued Sublocade 100 mg/0.5 mL solution, extended rel syringe 100 mg subcut Q28D Discontinued clomipramine 75 mg capsule 75 mg PO TID Discharge Orders: Discharge Order (Routine); Ordered 04/02/24 Ordered By: Jeanna Faust Diet: Advance to usual diet Activity on Discharge: As tolerated Stand Alone Forms: Patient Portal Discharge page, Community Support Print Language: Swedish Care Plan Goals: Mood and Behavioral Stabilization Health Concerns: Mood and Behavioral Stabilization Plan of Treatment: Take medications as directed Attend scheduled appointments Assessment: Pt reports feeling prepared to discharge Denies SI/HI/AH/VH He will continue with out pt therapist Discharge Date/Time: 04/02/24 11:00
== END 2024-04-02 11:00 | disposition home or self-care (01) | DRG 754 ==
LOC: HO.ED 19:36 → HO.PM5 03-21 14:38
PROVIDERS: Physician Assistant Medical; Admitting Provider Psychiatry & Neurology Psychiatry; Emergency Provider Emergency Medicine; Visit Provider Clinical Nurse Specialist Psychiatric/Mental Health, Adult
DX: F32.A Depression, unspecified (principal); R45.851 Suicidal ideations; F42.9 Obsessive-compulsive disorder, unspecified; F17.210 Nicotine dependence, cigarettes, uncomplicated; F19.10 Other psychoactive substance abuse, uncomplicated; Z71.6 Tobacco abuse counseling; Z85.47 Personal history of malignant neoplasm of testis; Z79.899 Other long term (current) drug therapy
CPT/HCPCS: 36415; 80053; 80061; 80143; 80178; 80179; 80307; 80335; 81003; 83036; 83735; 84443; 85025; 99285; S9485

== ENCOUNTER → 2024-03-21 14:30 | Outpatient (BNV) | payer OTHER, SELFPAY | PROVIDERS: Admitting Provider Psychiatry & Neurology Psychiatry; Emergency Provider Emergency Medicine; Visit Provider Clinical Nurse Specialist Psychiatric/Mental Health, Adult | DX: F32.2 Major depressive disorder, single episode, severe without psychotic features (principal); R45.851 Suicidal ideations; F42.9 Obsessive-compulsive disorder, unspecified | CPT/HCPCS: 90792; 99231; 99232; 99238 ==

== ENCOUNTER 2024-04-20 11:02 | Outpatient (AMB) | payer OTHER, SELFPAY ==
[2024-04-20 11:04] VITALS: BP 132/90; PULSE 90; O2SAT 95; BMI 29.5
--- NOTE | 2024-04-20 11:04 | A.OFFPC_ITS ---
Vital Signs 04/20/24 11:04 Height 5 ft 6 in Weight 183 lb BMI 29.5 BP 132/90 H Blood Pressure Location Lt brachial Position Sitting Pulse 90 Pulse Source Pulse Oximeter Pulse Oximetry (%) 95 Oxygen Delivery Method Room Air Intake Visit Reasons: Annual Exam Intake Note: Patient is here today for a physical. 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: No Allergies codeine Allergy (Severe, Verified 04/20/24 11:24) Stomach Upset Medication List - Last Reconciled 04/20/24 by Antonio Moreno PA-C buprenorphine ER (Sublocade) 100 mg subcut Q28D clomipramine 75 mg PO BID clomipramine 100 mg (2 x 50 mg) PO BEDTIME diazepam 3 mg (1.5 x 2 mg) PO TID docusate sodium 100 mg PO BID lithium carbonate 300 mg PO BEDTIME lithium carbonate 150 mg PO DAILY mirtazapine 7.5 mg PO BEDTIME PRN olanzapine 5 mg PO BID polyethylene glycol 3350 17 grams PO DAILY PRN Tobacco use date assessed: 04/20/24 Dental Screening Dental Screen Date: 04/20/24 Did you have a dental visit in the last 12 months?: No Did you have a dental problem in the last 6 months where you did not have access to dental care?: No HPI Annual Exam HPI Details Patient is a 38-year-old male here today for for an annual physical Patient has a past medical history significant for OCD, substance use disorder, history of hepatitis-C, depression. .. Recently admitted to [facility] for acute suicidal ideation. He has made some med changes and now is in partial hospitalization program. Will be seeing outpatient psychiatrist in the next few weeks. .. Opiate use disorder: He does admit to relapsing on crack cocaine yesterday. Continues to stay sober from street drugs with the use of buprenorphine .. Hyperlipidemia: Most recent lipid panel showing very elevated total cholesterol and LDL which could be related to his psychiatric medication. VAccine: UTD with COVID , Declines flu, need Tdap- declines Laboratory Tests 03/20/24 03/22/24 04/01/24 18:11 07:24 08:36 RBC 5.27 Hemoglobin A1c % 5.1 Cholesterol 273 H LDL Cholesterol, C alc 196 H Clomipramine 332 H [place] 0.33 L PFS Medical History History of hepatitis C Testicular cancer Polysubstance abuse Depression Surgical History History of orchiectomy Hx of cholecystectomy Family History Father Diabetes Mother No problems noted. Other Substance use disorder Social History (Updated 04/20/24 @ 11:29 by Antonio Moreno PA-C) Household Members: Family Household Members Other:: mom Housing: House Do you presently have visiting nurse or other home services: No Alcohol intake: current Alcohol intake frequency: a few times a week Alcohol type: beer Comment: once Q 2 weeks 3 drinks Patient Tobacco Use Status: Current everyday Tobacco user Tobacco use type: Cigarette Cigarette Packs Per Day: 0.5 Cigarettes Per Day: 10.0 Years Smoked: roll - 8 aday - e-Cigarette/Vaping Use: Never Used Second Hand Smoke Exposure: Yes Substance Use Type: Crack/Cocaine and Heroin service: No Current occupational status: employed Current occupation: [employer] Sexual orientation: Straight/Heterosexual Cognitive needs: No Hearing needs: No Vision needs: No Questionnaire PHQ-9 Over the last 2 weeks, how often have you been bothered by any of the following problems? 1. Little interest or pleasure in doing things: nearly every day 2. Feeling down, depressed, or hopeless: nearly every day 3. Trouble falling or staying asleep, or sleeping too much: several days 4. Feeling tired or having little energy: nearly every day 5. Poor appetite or overeating: several days 6. Feeling bad about yourself - or that you are a failure or have let yourself or your family down: nearly every day 7. Trouble concentrating on things, such as reading the newspaper or watching television: more than half the days 8. Moving or speaking so slowly that other people could have noticed. Or the opposite - being so fidgety or restless that you have been moving around a lot more than usual: more than half the days 9. Thoughts that you would be better off or of hurting yourself in some way: several days Total score: 19 Depression Screening Interpretation: Positive Depression Screening Follow-up: Existing condition and In treatment Depression Screening Done: Yes 61766 - PHQ-9 Billing: Yes Source: Developed by Drs. Shayan Dover, Anum Ojeda, Chidi Jett and colleagues, with an educational mian from [employer]. Thrive Questionnaire Date Thrive assessed: 04/16/24 I am a: Patient What is your living situation today?: I have a steady place to live Within the past 12 months, did the food you bought not last and you didn't have the money to get more?: Never true Within the past 12 months, did you worry whether your food would run out before you got money to buy more?: Never true Do you have trouble paying for medicines?: No Do you have trouble getting transportation to medical appointments?: No Do you have trouble paying your heating and electricity bill?: No Do you have trouble taking care of your child, family member or friend?: No Do you have trouble with day-to-day activities such as bathing, preparing meals, shopping, managing finances, etc.?: No Are you currently unemployed and looking for a job?: No Are you interested in more education?: No Please select the resources that you would like help with: None Currently or been in a relationship where the following occur: No concerns reported THRIVE Score: 0 AUDIT C Alcohol Use Questionnaire (AUDIT-C) 1. How often do you have a drink containing alcohol?: 2-3 times a week 2. How many drinks containing alcohol do you have on a typical day when you are drinking?: 3 or 4 3. How often do you have six or more drinks on one occasion?: Never Total Score: 4 LILIANE-7 AMB Questionnaire LILIANE-7 Date LILIANE - 7 assessed: 04/20/24 Feeling nervous, anxious, or on edge: 3 = Nearly every day Not being able to stop or control worryin = Nearly every day Worrying too much about different things: 3 = Nearly every day Trouble relaxin = Nearly every day Being so restless that it is hard to sit still: 3 = Nearly every day Becoming easily annoyed or irritable: 1 = Several days Feeling afraid as if something awful might happen: 3 = Nearly every day Total LILIANE-7 score (0-4 normal; 5-9 mild; 10-14 moderate; 15-21 severe): 19 Source: Developed by Fredi Harpet B.W. Rusty, Chidi Jett and colleagues, with an educational mian from [employer] LILIANE-7 Assessment Billing LILIANE-7 Assessment Tool: LILIANE-7 Assessment 58913 Review of Systems Const Denies body aches, Denies chills, Denies excessive sweating, Denies fatigue, Denies fever(s) and Denies headache(s) Eyes Denies blurry vision ENT Denies dysphagia, Denies vertigo, Denies dizziness, Denies headache(s), Denies hearing loss and Denies tinnitus Card Denies chest pain, Denies chest pain with activity, Denies syncope, Denies irregular heart rhythm and Denies dyspnea Resp Denies chest congestion, Denies cough, Denies hemoptysis, Denies dyspnea and Denies wheezing GI Denies abdominal pain, Denies melena, Denies hematochezia, Denies coffee ground emesis, Denies dysphagia, Denies diarrhea, Denies nausea and Denies vomiting Denies difficulty urinating, Denies dysuria, Denies urinary frequency, Denies urinary hesitancy and Denies urinary urgency Musc Denies arthralgias, Denies limited range of motion, Denies muscle cramps and Denies muscle weakness Skin/Breast Denies rash and Denies skin ulcer Neuro Denies Abnormal speech present, Denies confusion, Denies vertigo, Denies dizziness, Denies syncope, Denies headache(s), Denies memory loss and Denies seizure-like activity Psych Reports anxiety, Denies confusion, Reports depression, Reports difficulty concentrating, Reports anhedonia, Denies memory loss, Denies panic attacks and Denies paranoia Endo Denies excessive sweating, Denies fatigue, Denies flushing, Denies polydipsia and Denies polyuria Aller/Immun Denies wheezing Physical exam (Primary Care) Vital Signs: Last Vital Signs Pulse 90 04/20/24 11:04 BP 132/90 H 04/20/24 11:04 Pulse Ox 95 04/20/24 11:04 Oxygen Delivery Method Room Air 04/20/24 11:04 BMI result Body Mass Index 29.5 Tobacco/Smoking Status: Tobacco use Status Tobacco use date assessed 04/20/24 04/20/24 11:12 Patient Tobacco Use Status Current everyday Tobacco 04/20/24 11:05 Tobacco use type Cigarette 04/20/24 11:05 e-Cigarette/Vaping Use Never Used 04/20/24 11:05 PHQ-9: PHQ-9 Score PHQ-9: Total score 19 04/20/24 11:12 Depression Screening Interpretation: Positive Depression Screening Follow-up: Existing condition and In treatment Thrive Assessment: Date of Thrive Assessment Date Thrive assessed 04/16/24 04/20/24 11:05 Currently or been in a relationship where the following occur: No concerns reported Const Other: WEIGHT GAIN NOTED General: cooperative, comfortable, no acute distress, alert and awake; No confusion Orientation/consciousness: oriented to person, oriented to place, patient oriented x3 and No confusion HENMT Head: Yes normocephalic Ears: external ears normal and TM's normal bilaterally Face and sinus: No sinus tenderness Mouth: Normal oral and palatal mucosa present and tongue normal Teeth and gingiva: dentition normal and gingiva normal Throat: Yes posterior oropharynx normal, Yes tonsils normal and Yes uvula midline Eyes Conjunctivae: conjunctivae normal Sclerae: sclerae normal Pupils: Equal, round and reactive pupils present EOM: EOMs intact bilaterally Direct Ophthalmoscopy: No no photophobia Neck Neck: Yes no lymphadenopathy, No tender and Yes no JVD Thyroid: Thyroid normal Carotids: no bruits Chest Chest palpation & inspection: no tenderness Resp Effort & Inspection: normal respiratory effort, no audible wheezes, not labored and no stridor Auscultation: no crackles, no rales, no rhonchi and no wheezes Cardio Jugular venous distension: no JVD Rate: regular rate, not bradycardic and not tachycardic Rhythm: regular rhythm Bruits: no carotid bruits Peripheral pulses: Peripheral pulses 2+ throughout GI Inspection: Yes normal to inspection, No abdominal wall ecchymosis and No visible herniation Palpation (GI): Soft to palpation, nontender, no guarding, not rigid and No hepatosplenomegaly present Auscultation: normoactive bowel sounds General: Yes no CVA tenderness Back/Spine/Pelvis Back: no CVA tenderness and No back tenderness Cervical Spine: cervical ROM normal Thoracic/Lumbar Spine: thoracic and lumbar spine normal to inspection, straight leg raise negative bilaterally, No thoraco-lumbar ROM limited and No lumbar spinal tenderness Skin Lesions: no lesions Rashes: no rashes Wounds: no wounds Neuro General: oriented to person, oriented to place, patient oriented x3, CN's II-XI intact bilaterally and No confusion Cranial nerves: Yes Equal, round and reactive pupils present and Yes Normal accommodation reflex present Cognition (Neuro): normal cognition Speech: No Abnormal speech present Gait exam (Neuro): Normal gait present Motor exam (neuro): 5/5 motor strength present throughout Extrem Right upper extremity: full ROM; no cyanosis Left upper extremity: full ROM; no cyanosis Right lower extremity: no edema Left lower extremity: no edema Psych Appearance: grossly normal Mental Status: mental status grossly normal Affect: Blunted affect present Attitude: cooperative Thought process: Normal thought process present Thought content: Normal thought content present Insight: Good insight present (Psych) Coding Level of Care Code Est Pt Prev Care 18-39y(84325) Diagnoses Adult general medical exam Z00.00 Severe episode of recurrent major depressive disorder, with psychotic features F33.3 Depression Type: major depressive disorder Major depression recurrence: recurrent Active/Remission status: currently active Major depression episode severity: severe Psychotic features: with psychotic features Polysubstance abuse F19.10 Obsessive-compulsive disorder, unspecified type F42.9 Obsessive-compulsive disorder type: unspecified Mixed hyperlipidemia E78.2 Hyperlipidemia type: mixed hyperlipidemia Generalized anxiety disorder F41.1 Additional Codes LILIANE-7 Assessment Billing - LILIANE-7 Assessment Tool: LILIANE-7 Assessment 68688 ([id number]) PHQ-9 - 63989 - PHQ-9 Billing: Yes ([id number]) Assessment & Plan Assessment & Plan (1) Adult general medical exam: Comment: Gilda Haynes. Code(s): Z00.00 - Encounter for general adult medical examination without abnormal findings Category: Medical Plan: As per HPI (2) Depression: Code(s): F32.A - Depression, unspecified Category: Medical Qualifiers: Depression Type: major depressive disorder Major depression recurrence: recurrent Active/Remission status: currently active Major depression episode severity: severe Psychotic features: with psychotic features Qualified Code(s): F33.3 - Major depressive disorder, recurrent, severe with psychotic symptoms Plan: Patient recently admitted to hospital for mental health reasons. Has been having difficulty stabilizing his mood. He has outpatient help with psychiatry in the next few weeks. (3) Polysubstance abuse: Comment: history of heroin and cocaine abuse, last used 2020 Code(s): F19.10 - Other psychoactive substance abuse, uncomplicated Category: Medical Plan: Patient does admit to a relapse on crack cocaine yesterday otherwise has been staying away from any street opiates. Does use subluxated (4) OCD (obsessive compulsive disorder): Comment: Psychiatry [facility] once a month, therapist Marco once a week (06/2023) Code(s): F42.9 - Obsessive-compulsive disorder, unspecified Category: Medical Qualifiers: Obsessive-compulsive disorder type: unspecified Qualified Code(s): F42.9 - Obsessive-compulsive disorder, unspecified Plan: As above (5) Hyperlipidemia: Code(s): E78.5 - Hyperlipidemia, unspecified Category: Medical Qualifiers: Hyperlipidemia type: mixed hyperlipidemia Qualified Code(s): E78.2 - Mixed hyperlipidemia Plan: Most recent lipid panel showing very elevated total cholesterol and LDL though he does not believe that this was fasting. He is on psychiatric medication that could causing his elevated lipids. Will recheck fasting labs. (6) Generalized anxiety disorder: Code(s): F41.1 - Generalized anxiety disorder Category: Medical Plan: Patient's LILIANE-7 score positive for moderate to severe anxiety which has been existing condition for him. He will be following up with Psychiatry in near future. He has a made some changes in his medication since his psychiatric admission and will again will be following up with psychiatric provider Orders: Orders Lipid Panel Today E78.2 - Mixed hyperlipidemia Comprehensive [place]. Panel Fast Today E78.2 - Mixed hyperlipidemia Complete Blood Count no Diff Today E78.2 - Mixed hyperlipidemia
== END 2024-04-20 11:39 | disposition home or self-care (01) ==
PROVIDERS: PCP Physician Assistant; Visit Provider Physician Assistant
DX: Z00.00 Encounter for general adult medical examination without abnormal findings (principal); F33.3 Major depressive disorder, recurrent, severe with psychotic symptoms; F19.10 Other psychoactive substance abuse, uncomplicated; F42.9 Obsessive-compulsive disorder, unspecified; E78.2 Mixed hyperlipidemia; F41.1 Generalized anxiety disorder

== ENCOUNTER → 2024-04-20 11:02 | Outpatient (BNVA) | payer OTHER, SELFPAY | PROVIDERS: PCP Physician Assistant; Visit Provider Physician Assistant | DX: Z00.00 Encounter for general adult medical examination without abnormal findings (principal); F33.3 Major depressive disorder, recurrent, severe with psychotic symptoms; F19.10 Other psychoactive substance abuse, uncomplicated; F42.9 Obsessive-compulsive disorder, unspecified; F41.1 Generalized anxiety disorder; E78.2 Mixed hyperlipidemia | CPT/HCPCS: 96127; 99395 ==

== ENCOUNTER 2024-04-21 13:54 | Outpatient (AMB) | payer OTHER, SELFPAY ==
--- NOTE | 2024-04-21 14:25 | A.OFFPSYCH_ITS ---
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 Required: No Allergies codeine Allergy (Severe, Verified 04/20/24 11:24) Stomach Upset Medication List - Last Reconciled 04/21/24 by Yenny Prescott APRN buprenorphine ER (Sublocade) 100 mg subcut Q28D clomipramine 75 mg PO BID clomipramine 100 mg (2 x 50 mg) PO BEDTIME diazepam 3 mg (1.5 x 2 mg) PO TID docusate sodium 100 mg PO BID lithium carbonate 300 mg PO BEDTIME lithium carbonate 150 mg PO DAILY mirtazapine 7.5 mg PO BEDTIME PRN olanzapine 5 mg PO BID polyethylene glycol 3350 17 grams PO DAILY PRN HPI- Psychiatric Chief Complaint: Bridge appt from HPI Narrative: Pt referred to this advertising copy writer for Bridge appt until able to establish with outpatient psychiatry. Pt was hospitalized on M5 exacerbation of recurrent major depression with SI, OCD, Opiate use disorder treated with Sublicade. Pt reports a 20 year hx of OCD. Precipitant he reports is exacerbating sx which were so strong it forced him to give away a puppy he loved to a usp. He also reports decreased communication with colleagues and isolation. Sx he reports have become embodied and the physical pain of the anxiety he feels he was unable to tolerate. Medications were adjusted. while inpatient and he reports have helped; he has recently gotten a new puppy again and this has triggered similar intrusive thoughts - he has been trying to cope with cognitive strategies so that he does not give puppy to usp again. PHQ9= 22 and GAD7= 21. Pt is struggling with high anxiety and depression; he sees therapist Marco Gregg on a regular basis and continues with Juliet avila who is an OCD specialist. Past Psychiatric History: IP~5 admits, 3 in [place] OP: [facility] ([facility]n line prescribing) [facility]-therapy, private practice, 20 years. Trials: Clomipramine, Sertraline, Prozac, Effexor, Risperdal, Buspar, Luvox and other trials in [place] SIBS: Cutting age 14-no longer engages- once cut deeply, required sutures Burning-age 18- not done for a few years No hx of attempts, wants to live, but has thoughts. Subjective Subjective Subjective Medication Compliance: Yes Side effects from medications: No Review of Systems Medical Review of Systems: unchanged Mental Status Exam Mental Status Exam Patient Appearance: Well Grooomed and Appropriate Patient Orientation: Person, Place, Time and Situation Level of Consciousness: Awake and Appropriate Patient Behavior: Appropriate, Talkative and Cooperative Mood Description: Anxious and Sad Affect Description: Sad Patient Cognition Impaired: No Ability to Follow Directions: Good Speech Pattern: Clear, Perseverating and Appropriate Memory Description: Intact Hallucinations: None Delusions: Not Present Thought Process: Distracted and Rumination Thought Content: positive for Obsessional Thoughts and positive for Preoccupation Judgement: Fair Assessment and Plan Assessment & Plan (1) OCD (obsessive compulsive disorder): Status: Acute Qualifiers: Obsessive-compulsive disorder type: unspecified Qualified Code(s): F42.9 - Obsessive-compulsive disorder, unspecified Code(s): F42.9 - Obsessive-compulsive disorder, unspecified (2) Depression: Status: Acute Qualifiers: Depression Type: major depressive disorder Major depression recurrence: recurrent Active/Remission status: currently active Major depression episode severity: moderate Qualified Code(s): F33.1 - Major depressive disorder, recurrent, moderate Code(s): F32.A - Depression, unspecified Plan increase lithium from 300mg daily to 300mg BID continue other meds as is start vitamin D 1000 IU daily start magnesium glycinate 100-200mg at bedtime instructed per Cristin Hodges NP who treated him on M5 to go to [facility] between 10am and 12 noon M-F to do intake and schedule with a medication provider Medications: Changed From lithium carbonate 300 mg PO BEDTIME 30 tabs 0RF To lithium carbonate 300 mg PO BID 60 tabs 1RF Refilled clomipramine 100 mg (2 x 50 mg) PO BEDTIME 60 caps 0RF diazepam 3 mg (1.5 x 2 mg) PO TID 32 tabs 3RF docusate sodium 100 mg PO BID 60 caps 0RF olanzapine 5 mg PO BID 60 tabs 0RF clomipramine 75 mg PO BID 60 caps 0RF mirtazapine 7.5 mg PO BEDTIME PRN 30 tabs 0RF sleep Discontinued lithium carbonate Discontinued Reason: Doctor's Order 150 mg PO DAILY 30 caps 0RF Counseling and coordination of Care Pt. Self Management counseling: Maintenance-social rhythm, Mod caffeine/ETOH intake, Sleep hygiene, Behavior activation and Cognitive restructuring Medication management counseling: Effectiveness, Side effects, Dosing range, Duration, Drug interaction and Adherence Diagnosis and Prognosis Counseling: Accuracy of diagnosis, Prognosis over time, Impact of diagnosis on life functions, Impact of family relationship, Problematic behaviors secondary to diagnosis and Adequacy of current interventions Details: I spent 55 minutes reviewing the record, seeing the patient and documenting in the medical record. Counseling provided to the patient/caregiver as outlined below. Addressed patient/caregiver concerns regarding current medication regime including effective adherence. Addressed patient/caregiver concerns regarding diagnosis and prognosis including accuracy of diagnosis, prognosis over time, impact of diagnosis. Addressed patient/caregiver concerns regarding impact of recent stressors. [facility] Medical History History of hepatitis C Testicular cancer Polysubstance abuse Depression Surgical History History of orchiectomy Hx of cholecystectomy Family History Father Diabetes Mother No problems noted. Other Substance use disorder Social History (Updated 04/20/24 @ 11:29 by Antonio Moreno PA-C) Household Members: Family Household Members Other:: mom Housing: House Do you presently have visiting nurse or other home services: No Alcohol intake: current Alcohol intake frequency: a few times a week Alcohol type: beer Comment: once Q 2 weeks 3 drinks Patient Tobacco Use Status: Current everyday Tobacco user Tobacco use type: Cigarette Cigarette Packs Per Day: 0.5 Cigarettes Per Day: 10.0 Years Smoked: roll - 8 aday - e-Cigarette/Vaping Use: Never Used Second Hand Smoke Exposure: Yes Substance Use Type: Crack/Cocaine and Heroin service: No Current occupational status: employed Current occupation: [employer] Sexual orientation: Straight/Heterosexual Cognitive needs: No Hearing needs: No Vision needs: No Social History: Born, raised [place]. Raised in a tense home, with discord. Dad spent a lot of time isolated in his room. Describes the environment as chaotic, miserable at times. One brother, one sister OCD sx age 3-5. Taken from [employer] in fifth grade to public school. Recalls sx increasing with needing to tap his desk x 8, tap the legs of his chair x 8. Recalls a female friend in sixth grade telling him of OCD and of his sx. Pt spent six years in [employer] as a student, he worked there, had 3 admissions and was overtaken by sx. 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 Sublocade pt. Binge hx in 20's-self medicated OCD. Denies sx now. Last binge ~4 years ago. Took pills in his 20's as well, sniffed heroin and cocaine a few times. Did go to a 6 month residential program in [place] for addiction and I felt good there . Trauma History: Affirms Coding Level of Care Code Est Pt Level 5 (45011) Diagnoses Obsessive-compulsive disorder, unspecified type F42.9 Obsessive-compulsive disorder type: unspecified Moderate episode of recurrent major depressive disorder F33.1 Depression Type: major depressive disorder Major depression recurrence: recurrent Active/Remission status: currently active Major depression episode severity: moderate
--- OUTSIDE RECORDS SUMMARY | 2024-04-22 14:45 | XMS_ITS | Patient Health Record ---
Author Organization [facility] Address [address], [place] [id number] Support Name Relationship Address Phone Laurie Chang Emergency Contact Unknown [phone] Hira Menendez Guarantor Unknown Unavailable Reason For Referral No Information Plan Of Treatment No Information
== END 2024-04-21 14:50 | disposition home or self-care (01) ==
LOC: HO.HOP 13:54
PROVIDERS: PCP Physician Assistant; Visit Provider Clinical Nurse Specialist Psychiatric/Mental Health
DX: F33.1 Major depressive disorder, recurrent, moderate (principal); F42.9 Obsessive-compulsive disorder, unspecified
CPT/HCPCS: 99215

== ENCOUNTER → 2024-04-21 13:54 | Outpatient (BNVA) | payer OTHER, SELFPAY | PROVIDERS: PCP Physician Assistant; Visit Provider Clinical Nurse Specialist Psychiatric/Mental Health | DX: F42.9 Obsessive-compulsive disorder, unspecified (principal); F33.1 Major depressive disorder, recurrent, moderate | CPT/HCPCS: 99212 ==

== ENCOUNTER 2024-05-12 13:33 | Outpatient (AMB) | payer OTHER, SELFPAY ==
--- OUTSIDE RECORDS SUMMARY | 2024-05-12 13:35 | XMS_ITS | Patient Health Record ---
Author Organization [facility] Address [address], [place] [id number] Support Name Relationship Address Phone Laurie Chang Emergency Contact Unknown Hira Menendez Guarantor Unknown Unavailable Reason For Referral No Information Plan Of Treatment No Information
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
== END 2024-05-12 13:58 | disposition home or self-care (01) ==
LOC: HO.HOP 13:33
PROVIDERS: PCP Physician Assistant; Visit Provider Clinical Nurse Specialist Psychiatric/Mental Health
DX: F42.2 Mixed obsessional thoughts and acts (principal); F33.1 Major depressive disorder, recurrent, moderate
CPT/HCPCS: 99214

== ENCOUNTER → 2024-05-12 13:33 | Outpatient (BNVA) | payer OTHER, SELFPAY | PROVIDERS: PCP Physician Assistant; Visit Provider Clinical Nurse Specialist Psychiatric/Mental Health | DX: F42.2 Mixed obsessional thoughts and acts (principal); F33.1 Major depressive disorder, recurrent, moderate | CPT/HCPCS: 99212 ==

== ENCOUNTER 2024-06-09 13:51 | Outpatient (AMB) | payer OTHER, SELFPAY ==
--- NOTE | 2024-06-09 14:11 | MHC.OFFVISPS ---
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 Allergies codeine Allergy (Severe, Verified 04/20/24 11:24) Stomach Upset Medication List - Last Reconciled 06/09/24 by Yenny Prescott APRN buprenorphine ER (Sublocade) 100 mg subcut Q28D clomipramine 75 mg PO BID clomipramine 100 mg (2 x 50 mg) PO BEDTIME diazepam 3 mg (1.5 x 2 mg) PO TID docusate sodium 100 mg PO BID lithium carbonate 300 mg PO BID mirtazapine 7.5 mg PO BEDTIME PRN olanzapine 5 mg PO BID polyethylene glycol 3350 17 grams PO DAILY PRN HPI- Psychiatric Chief Complaint: F/U consultation HPI Narrative: Pt continues to struggle with intermittent obsessive thoughts which do cause him distress; he is able to refute and refocus at times; He is comliant with medications. His PHQ9= 15 and his GAD7= 17. He has stopped using ETOH due to it worsening hs mood: he is attending 12 step meetings which he finds helpful; He has planned to go to an OCD conference in November in [place] to learn more and meet other people who have OCD. He does have passive SI but no planand no intent. Past Psychiatric History: IP~5 admits, 3 in [place] OP: [facility] ([facility] prescribing) [facility], private practice, 20 years. Trials: Clomipramine, Sertraline, Prozac, Effexor, Risperdal, Buspar, Luvox and other trials in [facility] SIBS: Cutting age 14-no longer engages- once cut deeply, required sutures Burning-age 18- not done for a few years No hx of attempts, wants to live, but has thoughts. Subjective Subjective Subjective Medication Compliance: Yes Side effects from medications: No Review of Systems Medical Review of Systems: unchanged Mental Status Exam Mental Status Exam Patient Appearance: Well Grooomed and Appropriate Patient Orientation: Person, Place, Time and Situation Level of Consciousness: Awake and Appropriate Patient Behavior: Appropriate and Cooperative Mood Description: Anxious and Sad Affect Description: Anxious and Sad Ability to Follow Directions: Good Speech Pattern: Clear and Appropriate Memory Description: Intact Hallucinations: None Delusions: Not Present Thought Process: Intact Thought Content: positive for Obsessional Thoughts and positive for Preoccupation Judgement: Good Assessment and Plan Assessment & Plan (1) Generalized anxiety disorder: Status: Acute Code(s): F41.1 - Generalized anxiety disorder (2) OCD (obsessive compulsive disorder): Status: Acute Qualifiers: Obsessive-compulsive disorder type: mixed obsessional thoughts and acts Qualified Code(s): F42.2 - Mixed obsessional thoughts and acts Code(s): F42.9 - Obsessive-compulsive disorder, unspecified (3) Depression: Status: Acute Qualifiers: Depression Type: major depressive disorder Major depression recurrence: recurrent Active/Remission status: currently active Major depression episode severity: moderate Qualified Code(s): F33.1 - Major depressive disorder, recurrent, moderate Code(s): F32.A - Depression, unspecified Plan meds as per below labs ordered and explained to patient Medications: New magnesium glycinate 100 mg PO .bedtime 30 caps 2RF 30 days Changed From diazepam 3 mg (1.5 x 2 mg) PO TID 32 tabs 3RF To diazepam 3 mg (1.5 x 2 mg) PO TID 63 tabs 4RF 14 days Refilled clomipramine 100 mg (2 x 50 mg) PO BEDTIME 60 caps 0RF mirtazapine 7.5 mg PO BEDTIME PRN 30 tabs 1RF sleep olanzapine 5 mg PO BID 60 tabs 1RF clomipramine 75 mg PO BID 60 caps 0RF lithium carbonate 300 mg PO BID 60 tabs 1RF Orders: Orders Comprehensive [place]. 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 Self Management counseling: Maintenance-social rhythm, Mod caffeine/ETOH intake, Sleep hygiene, General coping skills and Problem solving Medication management counseling: Effectiveness, Side effects, Dosing range, Duration, Drug interaction and Adherence Diagnosis and Prognosis Counseling: Accuracy of diagnosis, Prognosis over time, Impact of diagnosis on life functions, Impact of family relationship, Problematic behaviors secondary to diagnosis and Adequacy of current interventions Details: I spent 45 minutes reviewing the record, seeing the patient and documenting in the medical record. Counseling provided to the patient/caregiver as outlined below. Addressed patient/caregiver concerns regarding current medication regime including effective adherence. Addressed patient/caregiver concerns regarding diagnosis and prognosis including accuracy of diagnosis, prognosis over time, impact of diagnosis. Addressed patient/caregiver concerns regarding impact of recent stressors. [facility] Medical History History of hepatitis C Testicular cancer Polysubstance abuse Depression Surgical History History of orchiectomy Hx of cholecystectomy Family History Father Diabetes Mother No problems noted. Other Substance use disorder Social History (Updated 04/20/24 @ 11:29 by Antonio Moreno PA-C) Household Members: Family Household Members Other:: mom Housing: House Do you presently have visiting nurse or other home services: No Alcohol intake: current Alcohol intake frequency: a few times a week Alcohol type: beer Comment: once Q 2 weeks 3 drinks Patient Tobacco Use Status: Current everyday Tobacco user Tobacco use type: Cigarette Cigarette Packs Per Day: 0.5 Cigarettes Per Day: 10.0 Years Smoked: roll - 8 aday - e-Cigarette/Vaping Use: Never Used Second Hand Smoke Exposure: Yes Substance Use Type: Crack/Cocaine and Heroin service: No Current occupational status: employed Current occupation: [employer] Sexual orientation: Straight/Heterosexual Cognitive needs: No Hearing needs: No Vision needs: No Social History: Born, raised [place]. Raised in a tense home, with discord. Dad spent a lot of time isolated in his room. Describes the environment as chaotic, miserable at times. One brother, one sister OCD sx age 3-5. Taken from [employer] in fifth grade to public school. Recalls sx increasing with needing to tap his desk x 8, tap the legs of his chair x 8. Recalls a female friend in sixth grade telling him of OCD and of his sx. Pt spent six years in [employer] as a student, he worked there, had 3 admissions and was overtaken by sx. 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 Sublocade pt. Binge hx in 20's-self medicated OCD. Denies sx now. Last binge ~4 years ago. Took pills in his 20's as well, sniffed heroin and cocaine a few times. Did go to a 6 month residential program in [place] for addiction and I felt good there . Trauma History: Affirms Coding Level of Care Code Est Pt Level 5 (11657) Diagnoses Generalized anxiety disorder F41.1 Mixed obsessional thoughts and acts F42.2 Obsessive-compulsive disorder type: mixed obsessional thoughts and acts Moderate episode of recurrent major depressive disorder F33.1 Depression Type: major depressive disorder Major depression recurrence: recurrent Active/Remission status: currently active Major depression episode severity: moderate
--- OUTSIDE RECORDS SUMMARY | 2024-06-09 15:00 | XMS_ITS | Patient Health Record ---
Author Organization [facility] Address [address], [place] [id number] Support Name Relationship Address Phone Laurie Chang Emergency Contact Unknown Hira Menendez Guarantor Unknown Unavailable Reason For Referral No Information Plan Of Treatment No Information
== END 2024-06-09 14:37 | disposition home or self-care (01) ==
LOC: HO.HOP 13:51
PROVIDERS: PCP Physician Assistant; Visit Provider Clinical Nurse Specialist Psychiatric/Mental Health
DX: F33.1 Major depressive disorder, recurrent, moderate (principal); F41.1 Generalized anxiety disorder; F42.2 Mixed obsessional thoughts and acts
CPT/HCPCS: 99215

== ENCOUNTER → 2024-06-09 13:51 | Outpatient (BNVA) | payer OTHER, SELFPAY | PROVIDERS: PCP Physician Assistant; Visit Provider Clinical Nurse Specialist Psychiatric/Mental Health | DX: F41.1 Generalized anxiety disorder (principal); F42.2 Mixed obsessional thoughts and acts; F33.1 Major depressive disorder, recurrent, moderate | CPT/HCPCS: 99212 ==

== ENCOUNTER 2024-06-26 13:05 | Inpatient (IN) | payer OTHER, SELFPAY ==
[2024-06-26 13:23] VITALS: BP 126/88; BP 149/92; PULSE 117; PULSE 98; RESP 16; TEMP 36.6; O2SAT 98; BMI 27.4
--- NOTE | 2024-06-26 13:25 | ED_ITS ---
HPI - Psych General Chief Complaint: Psychiatric Symptoms Stated Complaint: SI,HEROIN/COCAINE/ETOH USE LAST NIGHT PER EMS Time Seen by Provider: 06/26/24 13:12 Source: patient and EMS Mode of arrival: EMS Limitations: no limitations History of Present Illness ED Provider: Anisa Rosa NP HPI Narrative: Patient is a 38-year-old male who presents emergency department for evaluation via EMS. Endorses suicidal ideations with a plan to use a razor and slit his wrists. He states that he has been feeling this way for ?awhile?. He reports a lot of his stressor surrounds relapsing on drugs over the past 2 months. He reports he was sober for nearly 1 year. About 2 months ago he began smoking crack cocaine yesterday he does admit that he injected cocaine. He has been drinking daily he reports typically 3-4 beers each evening, this is relatively new for him he states ?it is feeling like it is becoming a habit?. He denies any history of alcohol withdrawal, DTs, withdrawal seizures. He follows with a therapist once weekly in [place], Marco [place]ston, reports he is prescribed lithium, Valium, clomipramine, olanzapine, mirtazapine and he has been compliant with these. Denies homicidal ideations Denies auditory or visual hallucinations. Related Data Home Medications ?Medication ?Instructions ?Recorded ?Confirmed buprenorphine 100 mg/0.5 mL 100 mg subcut Q28D 03/21/24 06/09/24 solution,exten.rel.subcutaneous syringe (Sublocade) Previous Rx's ?Medication ?Instructions ?Recorded polyethylene glycol 3350 17 gram 17 g PO DAILY PRN Constipation #30 04/01/24 oral powder packet packets docusate sodium 100 mg capsule 100 mg PO BID #60 caps 05/12/24 clomipramine 50 mg capsule 100 mg (2 x 50 mg) PO BEDTIME #60 06/09/24 caps clomipramine 75 mg capsule 75 mg PO BID #60 caps 06/09/24 diazepam 2 mg tablet 3 mg (1.5 x 2 mg) PO TID 14 days 06/09/24 #63 tabs lithium carbonate 300 mg tablet 300 mg PO BID #60 tabs 06/09/24 magnesium glycinate 100 mg PO .bedtime 30 days #30 caps 06/09/24 mirtazapine 7.5 mg tablet 7.5 mg PO BEDTIME PRN sleep #30 06/09/24 tabs olanzapine 5 mg tablet 5 mg PO BID #60 tabs 06/09/24 Allergies Allergy/AdvReac Type Severity Reaction Status Date / Time codeine Allergy Severe Stomach Verified 06/26/24 13:31 Upset Review of Systems Review of Systems: Yes all other systems are reviewed and are negative PMFSH Past Medical History Attestation statement: The following information was validated with the patient. Source: old records reviewed Medical History History of hepatitis C Testicular cancer Polysubstance abuse Depression Surgical History History of orchiectomy Hx of cholecystectomy Family History Family History Father Diabetes Mother No problems noted. Other Substance use disorder Social History Social History (Updated 04/20/24 @ 11:29 by Antonio Moreno PA-C) Household Members: Family Household Members Other:: mom Housing: House Do you presently have visiting nurse or other home services: No Alcohol intake: current Alcohol intake frequency: 3 or more drinks per day Alcohol type: beer and hard liquor Comment: once Q 2 weeks 3 drinks Patient Tobacco Use Status: Current everyday Tobacco user Tobacco use type: Cigarette Cigarette Packs Per Day: 0.5 Cigarettes Per Day: 10.0 Years Smoked: roll - 8 aday - Smoked in Last 30 Days: Yes e-Cigarette/Vaping Use: Never Used Second Hand Smoke Exposure: Yes Use of substances other than those prescribed or required for medical reasons: Yes Substance Use Type: Crack/Cocaine Any prior treatment program specific to substance use: Yes Advance Directives: No Advance Directives Information Provided: Yes Do you have a plan to hurt others: No Plan service: No Current occupational status: employed Current occupation: [employer] Sexual orientation: Straight/Heterosexual Cognitive needs: No Hearing needs: No Vision needs: No Physical Exam Vital Signs: Vital Signs: Last Vital Signs Temp 97.9 F 06/26/24 13:23 Pulse 98 06/26/24 13:23 Resp 16 06/26/24 13:23 BP 149/92 H 06/26/24 13:23 Pulse Ox 98 06/26/24 13:23 O2 Del Method Room Air 06/26/24 13:23 BMI result Body Mass Index 27.4 Appearance: Alert.?Oriented to person, place and time. No acute distress.?Normal affect. Eyes: Pupils equal, round and reactive to light.? ENT: Pharynx normal.?? Neck: Normal inspection.? Neck supple.?? CVS: Heart sounds normal. Normal heart rate and rhythm.? Pulses normal.?? Respiratory: No respiratory distress.? Lung sounds clear to auscultation bilaterally?? Abdomen: Soft and non-tender. Normoactive bowel sounds. Skin: Skin warm and dry.? Normal skin color.? Extremities: No lower extremity edema.? Neuro: Moves all extremities spontaneously. Sensation intact bilaterally. CN II- XII intact. No focal neuro deficits. Ambulates with normal steady gait. Medical Decision Making Medical Decision Making MDM Narrative: Patient is a 38-year-old male with past medical history of hepatitis-C, testicular cancer s/p right orchiectomy in 2008, OCD, depression, anxiety who presents emergency department via EMS for evaluation of suicidal ideations with a plan, meeting to polysubstance use with crack cocaine, cocaine, and alcohol as per HPI. He is calm and cooperative at the time of my evaluation. He offers no physical complaints in his physical examination is benign. He will be placed in physician observation as per narrative below in orders for care team evaluation will ensue for safe disposition planning. Obtaining basic labs for medical clearance Differential Diagnosis Differential Diagnoses: The differential diagnosis associated with the presentation includes (See narrative above and below for further detail) Admission/Observation Consideration of admission/observation: Escalation of care including admission/observation considered Patient is being observed in the Emergency Department for depression and suicidal ideation. Observation time was started at 14:13 on 06/26/2024.?The patient is currently stable and non-toxic appearing. Observation is being initiated in the Emergency Department to allow time to help differentiate if the patient's depression and anxiety is due to Substance Induced Mood Disorder and Anxiety versus Major Depressive Disorder, Bipolar Delaney, Bipolar Depression, and Schizophrenia. The patient will receive frequent psychiatric assessments from the provider as well as from nursing staff. The patient will also be monitored for the need of PRN agitation medications such as Haldol, Ativan, and Benadryl. Consult Healthcare Provider Management of the patient was discussed with: Behavioral Health Provider (CARE team) Lab Data MDM Lab Attestation statement: I reviewed the patient's lab results. Independent Historian Clinical information obtained from an independent historian. History obtained from or confirmed by: EMS External Record Review External record reviewed: Outpatient record Discharge Plan Discharge Clinical Impression: Suicidal ideation Patient Disposition: Still a Patient Prescriptions: No Action Sublocade 100 mg/0.5 mL solution, extended rel syringe 100 mg subcut Q28D polyethylene glycol 3350 17 gram Powder In Packet 17 g PO DAILY PRN (Reason: Constipation) Qty: 30 0RF docusate sodium 100 mg capsule 100 mg PO BID Qty: 60 0RF diazepam 2 mg tablet 3 mg PO TID 14 Days Qty: 63 4RF clomipramine 75 mg capsule 75 mg PO BID Qty: 60 0RF clomipramine 50 mg capsule 100 mg PO BEDTIME Qty: 60 0RF lithium carbonate 300 mg tablet 300 mg PO BID Qty: 60 1RF mirtazapine 7.5 mg tablet 7.5 mg PO BEDTIME PRN (Reason: sleep) Qty: 30 1RF olanzapine 5 mg tablet 5 mg PO BID Qty: 60 1RF magnesium glycinate 100 mg magnesium capsule 100 mg PO .bedtime 30 Days Qty: 30 2RF Interventions: [place]-Suicide Risk Severity Scale Last Done: 06/26/24 14:02 Print Language: Spanish
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
[2024-06-26 15:45] LABS: MANUAL DIFF FLAG NO
[2024-06-26 15:49] LABS: Basophils Absolute Auto 0.1 X10*3/uL (0.0-0.2); Basophils Percent Auto 0.4 % (0-2); Hematocrit 43.5 % (42.0-52.0); Hemoglobin 14.8 g/dl (14.0-18.0); Imm Gran Abs Auto 0.05 X10*3/uL (0.00-0.03); Imm Gran Pct Auto 0.4 % (0.0-0.4); Lymphocytes Absolute Auto 2.3 X10*3/uL (1.2-4.9); Lymphocytes Percent Auto 16.4 % (20-40); Mean Corpuscular Hemoglobin 29.5 pg (27.0-33.0); Mean Corpuscular Volume 86.8 fL (80.0-98.0); Mean Platelet Volume 9.2 fL (9.4-12.4); Monocytes Absolute Auto 0.8 X10*3/uL (0.1-1.2); Monocytes Percent Auto 5.9 % (2-11); Neutrophils Absolute Auto 10.8 x10*3/uL (2.0-8.3); Neutrophils Percent Auto 76.9 % (45-73); Platelet Count 305 X10*3/uL (160-400); Red Blood Count 5.01 X10*6/uL (4.60-5.80)
[2024-06-26 16:00] LABS: Ethanol < 10 mg/dL
[2024-06-26 16:08] LABS: Alanine Aminotransferase 47 U/L (0-40); Albumin Level 4.5 g/dL (3.5-5.0); Alkaline Phosphatase 109 U/L (39-117); Anion Gap 15 (12-20); Aspartate Amino Transferase 36 U/L (5-37); Blood Urea Nitrogen 15 mg/dL (9-16); Calcium 8.8 mg/dL (8.4-10.2); Carbon Dioxide 25 mmol/L (22-29); Chloride 104 mmol/L (96-108); Creatinine Clr Calc Pharmacy 124.3; Estimated Glomerular Filt Rate > 60; Glucose Random 85 mg/dL (60-115); Potassium 4.7 mmol/L (3.3-5.1); Sodium 139 mmol/L (135-145); Total Protein 7.8 g/dL (6.5-8.0)
[2024-06-26 16:22] LABS: Bilirubin Total 0.7 mg/dL (0.0-1.0)
--- NOTE | 2024-06-26 20:07 | PC.NURSE ---
sleeping comfortably, awaiting care team eval. patient safety officer at bedside. cont to reinforce safety and monitor.
[2024-06-26 21:15] VITALS: BP 122/70; PULSE 58; RESP 16; TEMP 36.6; O2SAT 95
[2024-06-26 22:16] LABS: Appearance Urine Clear; Color Urine Dark Yellow; Glucose Urine UA Negative (Negative); Leukocyte Esterase Urine Negative (Negative); Nitrite Urine Negative (Negative); PH 5.5 (5.0-9.0); Specific Gravity - Urine >= 1.030 (1.005-1.025); Urine Blood Negative (Negative); Urine Ketones Trace mg/dL (Negative); Urine Protein Trace mg/dL (Neg-Trace)
[2024-06-26 22:25] LABS: Amphetamine Screen Urine Not Detected (Not Detect); Barbiturates, Urine Not Detected (Not Detect); Benzodiazepines Screen Urine POSITIVE (Not Detect); Buprenorphine Scr Positive (Not Detect); Cannabinoid Screen Urine Not Detected (Not Detect); Cocaine Screen Urine POSITIVE (Not Detect); Fentanyl, urine Not Detected (Not Detect); Methadone Screen, Urine Not Detected (Not Detect); Opiate Screen Urine Not Detected (Not Detect); Oxycodone Screen Urine Not Detected (Not Detect); Phencyclidine Screen Urine Not Detected (Not Detect)
--- NOTE | 2024-06-26 23:09 | PC.NURSE ---
no complaints; ambulates with steady gait. mental status at baseline. respirations nonlabored. provided snack. safety investigator at bedside. cont to reinforce safety and monitor.
[2024-06-27 06:20] VITALS: BP 110/63; PULSE 61; RESP 16; TEMP 36.4; O2SAT 97
--- NOTE | 2024-06-27 08:16 | ECG_ITS ---
Test Reason : drug use Blood Pressure : */* mmHG Vent. Rate : 70 BPM Atrial Rate : 70 BPM P-R Int : 190 ms QRS Dur : 86 ms QT Int : 374 ms P-R-T Axes : 24 -7 25 degrees QTcB Int : 403 ms Normal sinus rhythm Normal ECG No previous ECGs available Referred By: Hosea Patel Electronically Signed By: DIMA PALMA
[2024-06-27 12:02] VITALS: BP 104/64; PULSE 78; RESP 17; TEMP 37.4; O2SAT 95
[2024-06-27 16:12] VITALS: BP 100/63; PULSE 74; RESP 17; TEMP 37; O2SAT 94
[2024-06-27 17:14] VITALS: BP 120/87; PULSE 93; RESP 16; TEMP 36.4; O2SAT 97
[2024-06-27 17:17] VITALS: BMI 28.9
--- NOTE | 2024-06-27 17:49 | PC.NURSE ---
Nursing admission note: 38 year old Male DX: Major Depressive Disorder, OCD, Cocaine use unspecified. Signed conditional voluntary for admission. Self presented [place] [facility] via [place] due to increased anxiety, depression, and suicidal ideation with plan to cut wrists. Reports relapse on crack cocaine in March and increased alcohol use as contributing factors. Patient is A+O x4, easily engaged, calm and cooperative with admission process. Presents with good eye contact, blunted affect. Describes mood as depressed with +SI, Ideas to cut his wrists denies plan or intent at this time. Denies racing thoughts however reports he experiences obsessive thoughts . Denies A/V hallucinations, no overt psychosis or expressed delusions. Denies sleep or appetite disturbances. Reports relapse on cocaine after 1 year of sobriety using 1x weekly, 1 ball or 50.00 bags . Recently injected. States he has been drinking however trying to cut down reports drinking often 3-4 times a week, 3-4 beers . Denies current WD sx, denies history of withdrawal or alcohol related seizure. Reports feeling like here we are again . Would like aftercare recovery program. Medical history includes History of Hepatitis C 2011, R Orchiectomy 2008, Cholecystectomy 2013. Allergy to Codeine. Patient oriented to unit, placed on unit safety checks. See nursing assessment, crisis evaluation for complete details.
[2024-06-27 19:26] LABS: Alanine Aminotransferase 42 U/L (0-40); Albumin Level 4.4 g/dL (3.5-5.0); Alkaline Phosphatase 126 U/L (39-117); Anion Gap 11 (12-20); Aspartate Amino Transferase 28 U/L (5-37); Bilirubin Total 0.5 mg/dL (0.0-1.0); Blood Urea Nitrogen 21 mg/dL (9-16); Calcium 9.4 mg/dL (8.4-10.2); Carbon Dioxide 29 mmol/L (22-29); Chloride 102 mmol/L (96-108); Estimated Glomerular Filt Rate > 60; Glucose Random 107 mg/dL (60-115); Sodium 138 mmol/L (135-145); Total Protein 7.6 g/dL (6.5-8.0)
[2024-06-27 19:31] VITALS: BP 132/89; PULSE 74; TEMP 37.4; O2SAT 96
[2024-06-27] MEDS: clomiPRAMINE HCl 25 MG CAPSULE 100 MG PO (23:12)
[2024-06-27] MEDS: Lithium Carbonate 300 MG CAPSULE PO (23:14)
[2024-06-27] MEDS: OLANZapine 5 MG TABLET PO (23:14)
[2024-06-27] MEDS: Docusate Sodium 100 MG CAPSULE PO (23:14)
[2024-06-27] MEDS: Mirtazapine 7.5 MG TABLET PO (23:14)
[2024-06-27] MEDS: diazePAM 2 MG TABLET 3 MG PO (23:14)
--- NOTE | 2024-06-27 23:22 | PC.NURSE ---
At first patient was sleeping therefore HS medications were held. at 2314 patient requested HS medications. Patient received all HS medications except the 75mg dose of Anafranil stating that he typically takes 75 mg in the morning, 75mg in the afternoon and 100mg at HS. PRN Remeron was also given
[2024-06-28 07:31] VITALS: BP 117/57; PULSE 66; RESP 16; TEMP 36.5; O2SAT 97
[2024-06-28] MEDS: Docusate Sodium 100 MG CAPSULE PO ×2 (09:03→20:40)
[2024-06-28] MEDS: clomiPRAMINE HCl 25 MG CAPSULE 75 MG PO ×2 (09:03→16:54)
[2024-06-28] MEDS: Lithium Carbonate 300 MG CAPSULE PO ×2 (09:04→20:40)
[2024-06-28] MEDS: diazePAM 2 MG TABLET 3 MG PO ×3 (09:04→20:41)
[2024-06-28] MEDS: OLANZapine 5 MG TABLET PO ×2 (09:04→20:39)
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
[2024-06-28 16:30] VITALS: BP 111/63; PULSE 83; TEMP 37; O2SAT 97
[2024-06-28 20:00] VITALS: BP 106/61; PULSE 81; RESP 16; TEMP 36.9; O2SAT 95
[2024-06-28 20:29] LABS: Lithium 0.25 mmol/L (0.60-1.20)
[2024-06-28 20:39] LABS: Anion Gap 15 (12-20); Blood Urea Nitrogen 16 mg/dL (9-16); Calcium 9.3 mg/dL (8.4-10.2); Carbon Dioxide 31 mmol/L (22-29); Chloride 100 mmol/L (96-108); Cholesterol 228 mg/dL (<200); Creatinine Clr Calc Pharmacy 106.7; Estimated Glomerular Filt Rate > 60; Glucose Random 93 mg/dL (60-115); HDL Cholesterol 28 mg/dL (>40); LDL Cholesterol Calculated 134 mg/dL (<100); Potassium 4.3 mmol/L (3.3-5.1); Sodium 142 mmol/L (135-145); Triglycerides 334 mg/dL (<150)
[2024-06-28] MEDS: clomiPRAMINE HCl 25 MG CAPSULE 100 MG PO (20:39)
[2024-06-28] MEDS: Mirtazapine 7.5 MG TABLET PO (20:51)
[2024-06-29 07:32] VITALS: BP 112/57; PULSE 72; RESP 16; TEMP 36.6; O2SAT 95
[2024-06-29] MEDS: Lithium Carbonate 300 MG CAPSULE PO (08:40)
[2024-06-29] MEDS: clomiPRAMINE HCl 25 MG CAPSULE 75 MG PO ×2 (08:41→16:26)
[2024-06-29] MEDS: Docusate Sodium 100 MG CAPSULE PO ×2 (08:41→20:39)
[2024-06-29] MEDS: OLANZapine 5 MG TABLET PO ×2 (08:41→20:39)
[2024-06-29] MEDS: diazePAM 2 MG TABLET 3 MG PO ×3 (08:41→20:38)
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
[2024-06-29] MEDS: Lithium Carbonate ER 300 MG TABLET.ER PO (12:11)
[2024-06-29 12:15] VITALS: BP 123/82; PULSE 112; RESP 16; TEMP 36.4; O2SAT 96
--- NOTE | 2024-06-29 15:38 | HO.PSYCHPN ---
Subjective Subjective Date of Service: 06/29/24 Reason For Visit: Crisis Interim History: denies withdrawal Sx. reporting constant OCD thoughts, related to dog he gave up. discuss lab results, agrees to increase lithium dosing to 600 BID. per staff, attended 1 group yesterday. +SI. scoring zeros on CIWA. isolative. PRN remeron. slept 8 hours. Mental Status Exam Mental Status Exam Narrative: adequately dressed and groomed. safety pin earring. cooperative. no PMA/PMR. speech nml rate, amount, loudness, tone, latency. thoughts linear and logical. affect constricted, normo-intense, non-labile. mood depressed. endorses SI, but less strong than at admission. no HI/AVH expressed. Diagnostics Vital Signs (24Hr): Vital Signs - 24 hr 06/28/24 16:30 06/28/24 20:00 06/29/24 07:32 Temperature 98.6 F 98.5 F 97.8 F Pulse Rate 83 81 72 Respiratory Rate 16 16 Blood Pressure 111/63 106/61 112/57 L Pulse Oximetry 97 95 95 Oxygen Delivery Method Room Air Room Air Room Air BMI result Body Mass Index 28.9 Labs 06/26/24 15:41 06/28/24 20:12 Labs: Laboratory Results - last 48 hr 06/27/24 06/28/24 06/28/24 18:54 20:12 20:12 Sodium 138 142 Potassium 4.0 4.3 Chloride 102 100 Carbon Dioxide 29 31 H Anion Gap 11 L 15 BUN 21 H 16 Creatinine 0.87 0.93 Estim Creat Clear Calc 114.0 106.7 Estimated GFR > 60 > 60 Random Glucose 107 93 Calcium 9.4 D 9.3 Total Bilirubin 0.5 AST 28 ALT 42 H Alkaline Phosphatase 126 H Total Protein 7.6 Albumin 4.4 Triglycerides Cancelled 334 H Cholesterol Cancelled LDL Cholesterol, Calc HDL Cholesterol Robins 06/28/24 06/28/24 06/28/24 20:12 20:12 20:12 Sodium Potassium Chloride Carbon Dioxide Anion Gap BUN Creatinine Estim Creat Clear Calc Estimated GFR Random Glucose Calcium Total Bilirubin AST ALT Alkaline Phosphatase Total Protein Albumin Triglycerides Cholesterol 228 H LDL Cholesterol, Calc Cancelled 134 H HDL Cholesterol Cancelled 28 L Robins 0.25 L Medications Medications Current Medications Acetaminophen (Acetaminophen 325 Mg Tablet) 650 mg PO Q6H PRN PRN Reason: Headache/Pain Mild Scale (1-3) Al Hydroxide/Mg Hydroxide (Magnesium Hydrox/Alum Hydrox 30 Ml Oral.Susp) 30 ml PO Q6H PRN PRN Reason: Heartburn/Nausea Clomipramine HCl (Clomipramine Hcl 25 Mg Capsule) 100 mg PO BEDTIME [facility] Last Admin: 06/28/24 20:39 Dose: 100 mg Clomipramine HCl (Clomipramine Hcl 25 Mg Capsule) 75 mg PO BID@0900,1700 [facility] Last Admin: 06/29/24 08:41 Dose: 75 mg Diazepam (Diazepam 2 Mg Tablet) 3 mg PO TID [facility] Last Admin: 06/29/24 15:13 Dose: 3 mg Docusate Sodium (Docusate Sodium 100 Mg Capsule) 100 mg PO BID [facility] Last Admin: 06/29/24 08:41 Dose: 100 mg Robins Carbonate (Robins Carbonate 300 Mg Capsule) 600 mg PO BID [facility] Lorazepam (Lorazepam 1 Mg Tablet) 1 mg PO Q2H PRN PRN Reason: CIWA 8-11 Lorazepam (Lorazepam 1 Mg Tablet) 2 mg PO Q2H PRN PRN Reason: CIWA 12-15 Lorazepam (Lorazepam 1 Mg Tablet) 3 mg PO Q2H PRN PRN Reason: CIWA > 15, and call MD Magnesium Hydroxide (Milk Of Magnesia 30 Ml Oral.Susp) 30 ml PO DAILY PRN PRN Reason: Constipation Mirtazapine (Mirtazapine 7.5 Mg Tablet) 7.5 mg PO BEDTIME PRN PRN Reason: sleep Last Admin: 06/28/24 20:51 Dose: 7.5 mg Nicotine (Nicotine 21 Mg Patch.Td24) 21 mg TRANSDERMA DAILY [facility] Last Admin: 06/29/24 10:36 Dose: Not Given Nicotine Polacrilex (Nicotine Polacrilex 2 Mg Gum) 4 mg BUCCAL Q2H PRN PRN Reason: Nicotine Cravings Olanzapine (Olanzapine 5 Mg Tablet) 5 mg PO BID [facility] Last Admin: 06/29/24 08:41 Dose: 5 mg Polyethylene Glycol (Polyethylene Glycol 3350 17 Gm Powd.Pack) 17 gm PO DAILY PRN PRN Reason: Constipation Trazodone HCl (Trazodone Hcl 50 Mg Tablet) 50 mg PO BEDTIME MRX1 PRN PRN Reason: Insomnia Allergies Allergies Allergy/AdvReac Type Severity Reaction Status Date / Time codeine Allergy Severe Stomach Verified 06/26/24 13:31 Upset Assessment & Plan Assessment & Plan (1) Suicidal ideation: Status: Acute Code(s): R45.851 - Suicidal ideations (2) Depression: Qualifiers: Depression Type: major depressive disorder Major depression recurrence: recurrent Active/Remission status: currently active Major depression episode severity: severe Psychotic features: with psychotic features Qualified Code(s): F33.3 - Major depressive disorder, recurrent, severe with psychotic symptoms Status: Acute Code(s): F32.A - Depression, unspecified (3) OCD (obsessive compulsive disorder): Qualifiers: Obsessive-compulsive disorder type: mixed obsessional thoughts and acts Qualified Code(s): F42.2 - Mixed obsessional thoughts and acts Status: Acute Code(s): F42.9 - Obsessive-compulsive disorder, unspecified (4) Cocaine use disorder: Status: Inactive Code(s): F14.10 - Cocaine abuse, uncomplicated (5) Opioid use disorder: Status: Acute Code(s): F11.90 - Opioid use, unspecified, uncomplicated (6) Alcohol use: Status: Acute Code(s): F10.90 - Alcohol use, unspecified, uncomplicated Plan 06/28: continue present outpt regimen. check lithium level tonight, adjust dosing tomorrow accordingly. interested in DDx programming, will pursue with SW. 06/29: lithium level 0.25, labs reassuring. increase lithium to 600 BID. considering PHP. continue current mgmt otherwise. Reason for continued inpatient stay Substantial Risk for: harm to self and inability to function Time Spent With Patient Time: Total time managing care of this patient today __25__ minutes.
--- NOTE | 2024-06-29 15:44 | MHC.RECOVRN ---
Addendum entered by Holly Myers 06/29/24 15:46: During AUDIT-C Brief Intervention pt disclosed cocaine use, INH, once weekly, over $300 on those days. Pt reports he has been binging since March 2024. Reports he did use cocaine, IV, prior to coming to [facility]. Reports it was only because somebody had it. Reports is was a new syringe. Discussed harm reduction. Pt unsure when last HIV/HCV screen was, reports results have always been negative. Pt also reported he receives Sublocade from [facility] in [place], last injection approx 2 weeks ago. Discussed supports for StUD, pt is interested in medication to assist with cravings. Plan to notify Jane Wilkinson APRN, of pts interest in medication for StUD. Original Note: AUDIT-C Brief Intervention Pt had positive screen for unhealthy alcohol use on admission, subsequently met with t/w to discuss alcohol use and recovery supports/options. This contract technical writer met with patient to discuss current alcohol use and concerns related to increased risk of alcohol related problems.? Pt reports alcohol use, 3-4 times weekly, drinks 4 pints of beer on those days. Discussed how alcohol use has impacted health, including negative impact on mental health. Withdrawal History: denies history of seizures Treatment History: reports 3 rehab admissions, one in [place], one in [place], one in [place] Supports:?mom, a few friends Discussed risk reduction strategies including drinking below the recommended limit. Provided pt with written resources including information on inpatient and outpatient treatment, KULWINDER, harm reduction, and recovery coaching. Pt plans to attend AA after discharge. Pt provided with t/w contact information if questions or concerns arise. Denies other questions or concerns at this time.?
[2024-06-29 16:32] VITALS: BP 104/58; PULSE 85; RESP 14; TEMP 36.9; O2SAT 98
[2024-06-29 20:00] VITALS: BP 109/60; PULSE 77; RESP 16; TEMP 36.6; O2SAT 95
[2024-06-29] MEDS: Mirtazapine 7.5 MG TABLET PO (20:38)
[2024-06-29] MEDS: clomiPRAMINE HCl 25 MG CAPSULE 100 MG PO (20:39)
[2024-06-29] MEDS: Lithium Carbonate 300 MG CAPSULE 600 MG PO (20:39)
[2024-06-30 07:00] VITALS: BMI 29.6
[2024-06-30 07:41] VITALS: BP 115/59; PULSE 66; RESP 18; TEMP 36.8; O2SAT 94
[2024-06-30] MEDS: OLANZapine 5 MG TABLET PO ×2 (08:48→21:20)
[2024-06-30] MEDS: Docusate Sodium 100 MG CAPSULE PO ×2 (08:48→21:20)
[2024-06-30] MEDS: clomiPRAMINE HCl 25 MG CAPSULE 75 MG PO ×2 (08:49→17:48)
[2024-06-30] MEDS: diazePAM 2 MG TABLET 3 MG PO ×3 (08:49→21:20)
[2024-06-30] MEDS: Lithium Carbonate 300 MG CAPSULE 600 MG PO ×2 (08:49→21:19)
--- NOTE | 2024-06-30 14:19 | P.PNPSI_ITS ---
Subjective Subjective Date of Service: 06/30/24 Reason For Visit: Crisis Interim History: calm, cooperative. feeling tired, not sure if it is from the lithium increase. in any case, pt would like to continue current regimen as discussed yesterday. agreeable to DC ativan per [facility] protocol, however, as he is not scoring. per staff, taking meds. slept 8 hours. no notable events or behaviors. Mental Status Exam Mental Status Exam Narrative: adequately dressed and groomed. safety pin earring. cooperative. no PMA/PMR. speech nml rate, amount, loudness, tone, latency. thoughts linear and logical. affect constricted, normo-intense, non-labile. mood not assessed. no SI/HI/AVH expressed. Diagnostics Vital Signs (24Hr): Vital Signs - 24 hr 06/29/24 16:32 06/29/24 20:00 06/30/24 07:41 Temperature 98.5 F 97.8 F 98.3 F Pulse Rate 85 77 66 Respiratory Rate 14 16 18 Blood Pressure 104/58 L 109/60 115/59 L Pulse Oximetry 98 95 94 Oxygen Delivery Method Room Air Room Air Room Air BMI result Body Mass Index 29.6 Labs 06/26/24 15:41 06/28/24 20:12 Labs: Laboratory Results - last 48 hr 06/28/24 06/28/24 06/28/24 20:12 20:12 20:12 Sodium 142 Potassium 4.3 Chloride 100 Carbon Dioxide 31 H Anion Gap 15 BUN 16 Creatinine 0.93 Estim Creat Clear Calc 106.7 Estimated GFR > 60 Random Glucose 93 Calcium 9.3 Triglycerides Cancelled 334 H Cholesterol Cancelled 228 H LDL Cholesterol, Calc Cancelled HDL Cholesterol [place] 06/28/24 06/28/24 20:12 20:12 Sodium Potassium Chloride Carbon Dioxide Anion Gap BUN Creatinine Estim Creat Clear Calc Estimated GFR Random Glucose Calcium Triglycerides Cholesterol LDL Cholesterol, Calc 134 H HDL Cholesterol Cancelled 28 L [place] 0.25 L Medications Medications Current Medications Acetaminophen (Acetaminophen 325 Mg Tablet) 650 mg PO Q6H PRN PRN Reason: Headache/Pain Mild Scale (1-3) Al Hydroxide/Mg Hydroxide (Magnesium Hydrox/Alum Hydrox 30 Ml Oral.Susp) 30 ml PO Q6H PRN PRN Reason: Heartburn/Nausea Clomipramine HCl (Clomipramine Hcl 25 Mg Capsule) 100 mg PO BEDTIME [facility] Last Admin: 06/29/24 20:39 Dose: 100 mg Clomipramine HCl (Clomipramine Hcl 25 Mg Capsule) 75 mg PO BID@0900,1700 [facility] Last Admin: 06/30/24 08:49 Dose: 75 mg Diazepam (Diazepam 2 Mg Tablet) 3 mg PO TID [facility] Last Admin: 06/30/24 08:49 Dose: 3 mg Docusate Sodium (Docusate Sodium 100 Mg Capsule) 100 mg PO BID [facility] Last Admin: 06/30/24 08:48 Dose: 100 mg [place] Carbonate ([place] Carbonate 300 Mg Capsule) 600 mg PO BID [facility] Last Admin: 06/30/24 08:49 Dose: 600 mg Magnesium Hydroxide (Milk Of Magnesia 30 Ml Oral.Susp) 30 ml PO DAILY PRN PRN Reason: Constipation Mirtazapine (Mirtazapine 7.5 Mg Tablet) 7.5 mg PO BEDTIME PRN PRN Reason: sleep Last Admin: 06/29/24 20:38 Dose: 7.5 mg Nicotine (Nicotine 21 Mg Patch.Td24) 21 mg TRANSDERMA DAILY [facility] Last Admin: 06/30/24 08:49 Dose: Not Given Nicotine Polacrilex (Nicotine Polacrilex 2 Mg Gum) 4 mg BUCCAL Q2H PRN PRN Reason: Nicotine Cravings Olanzapine (Olanzapine 5 Mg Tablet) 5 mg PO BID [facility] Last Admin: 06/30/24 08:48 Dose: 5 mg Polyethylene Glycol (Polyethylene Glycol 3350 17 Gm Powd.Pack) 17 gm PO DAILY PRN PRN Reason: Constipation Trazodone HCl (Trazodone Hcl 50 Mg Tablet) 50 mg PO BEDTIME MRX1 PRN PRN Reason: Insomnia Allergies Allergies Allergy/AdvReac Type Severity Reaction Status Date / Time codeine Allergy Severe Stomach Verified 06/26/24 13:31 Upset Assessment & Plan Assessment & Plan (1) Suicidal ideation: Status: Acute Code(s): R45.851 - Suicidal ideations (2) Depression: Qualifiers: Depression Type: major depressive disorder Major depression recurrence: recurrent Active/Remission status: currently active Major depression episode severity: severe Psychotic features: with psychotic features Qualified Code(s): F33.3 - Major depressive disorder, recurrent, severe with psychotic symptoms Status: Acute Code(s): F32.A - Depression, unspecified (3) OCD (obsessive compulsive disorder): Qualifiers: Obsessive-compulsive disorder type: mixed obsessional thoughts and acts Qualified Code(s): F42.2 - Mixed obsessional thoughts and acts Status: Acute Code(s): F42.9 - Obsessive-compulsive disorder, unspecified (4) Cocaine use disorder: Status: Inactive Code(s): F14.10 - Cocaine abuse, uncomplicated (5) Opioid use disorder: Status: Acute Code(s): F11.90 - Opioid use, unspecified, uncomplicated (6) Alcohol use: Status: Acute Code(s): F10.90 - Alcohol use, unspecified, uncomplicated Plan 06/28: continue present outpt regimen. check lithium level tonight, adjust dosing tomorrow accordingly. interested in DDx programming, will pursue with SW. 06/29: lithium level 0.25, labs reassuring. increase lithium to 600 BID. considering PHP. continue current mgmt otherwise. 06/30: c/o some tiredness, otherwise no complaints. DC ativan/CIWA as pt is not scoring. continue current regimen otherwise. Reason for continued inpatient stay Substantial Risk for: harm to self, inability to function and rapid decompensation Time Spent With Patient Time: Total time managing care of this patient today __25__ minutes.
[2024-06-30 20:00] VITALS: BP 137/81; PULSE 90; RESP 18; TEMP 36.5; O2SAT 95
[2024-06-30] MEDS: clomiPRAMINE HCl 25 MG CAPSULE 100 MG PO (21:19)
[2024-06-30] MEDS: Mirtazapine 7.5 MG TABLET PO (21:32)
[2024-07-01 07:45] VITALS: BP 110/60; PULSE 73; RESP 14; TEMP 36.5; O2SAT 95
[2024-07-01] MEDS: Lithium Carbonate 300 MG CAPSULE 600 MG PO ×2 (08:39→21:36)
[2024-07-01] MEDS: diazePAM 2 MG TABLET 3 MG PO ×3 (08:39→21:35)
[2024-07-01] MEDS: clomiPRAMINE HCl 25 MG CAPSULE 75 MG PO ×2 (08:39→17:13)
[2024-07-01] MEDS: Docusate Sodium 100 MG CAPSULE PO ×2 (08:39→21:35)
[2024-07-01] MEDS: OLANZapine 5 MG TABLET PO ×2 (08:39→21:36)
--- NOTE | 2024-07-01 19:20 | P.PNPSI_ITS ---
Subjective Subjective Date of Service: 07/01/24 Reason For Visit: Crisis Interim History: calm, cooperative, pleasant. stable presentation. asking about discharge. plan made to stay through weekend, check labs thursday saulo, re-eval thursday. per staff, taking medications. perseverative thoughts continue. slept 8 hours. Mental Status Exam Mental Status Exam Narrative: adequately dressed and groomed. safety pin earring. cooperative. no PMA/PMR. speech nml rate, amount, loudness, tone, latency. thoughts linear and logical. affect constricted, normo-intense, non-labile. mood not assessed. no SI/HI/AVH expressed. Diagnostics Vital Signs (24Hr): Vital Signs - 24 hr 06/30/24 20:00 07/01/24 07:45 Temperature 97.7 F 97.7 F Pulse Rate 90 73 Respiratory Rate 18 14 Blood Pressure 137/81 110/60 Pulse Oximetry 95 95 Oxygen Delivery Method Room Air Room Air BMI result Body Mass Index 29.6 Labs 06/26/24 15:41 06/28/24 20:12 Medications Medications Current Medications Acetaminophen (Acetaminophen 325 Mg Tablet) 650 mg PO Q6H PRN PRN Reason: Headache/Pain Mild Scale (1-3) Al Hydroxide/Mg Hydroxide (Magnesium Hydrox/Alum Hydrox 30 Ml Oral.Susp) 30 ml PO Q6H PRN PRN Reason: Heartburn/Nausea Clomipramine HCl (Clomipramine Hcl 25 Mg Capsule) 100 mg PO BEDTIME [facility] Last Admin: 06/30/24 21:19 Dose: 100 mg Clomipramine HCl (Clomipramine Hcl 25 Mg Capsule) 75 mg PO BID@0900,1700 [facility] Last Admin: 07/01/24 17:13 Dose: 75 mg Diazepam (Diazepam 2 Mg Tablet) 3 mg PO TID [facility] Last Admin: 07/01/24 14:51 Dose: 3 mg Docusate Sodium (Docusate Sodium 100 Mg Capsule) 100 mg PO BID [facility] Last Admin: 07/01/24 08:39 Dose: 100 mg [place] Carbonate ([place] Carbonate 300 Mg Capsule) 600 mg PO BID [facility] Last Admin: 07/01/24 08:39 Dose: 600 mg Magnesium Hydroxide (Milk Of Magnesia 30 Ml Oral.Susp) 30 ml PO DAILY PRN PRN Reason: Constipation Mirtazapine (Mirtazapine 7.5 Mg Tablet) 7.5 mg PO BEDTIME PRN PRN Reason: sleep Last Admin: 06/30/24 21:32 Dose: 7.5 mg Nicotine (Nicotine 21 Mg Patch.Td24) 21 mg TRANSDERMA DAILY [facility] Last Admin: 07/01/24 08:40 Dose: Not Given Nicotine Polacrilex (Nicotine Polacrilex 2 Mg Gum) 4 mg BUCCAL Q2H PRN PRN Reason: Nicotine Cravings Olanzapine (Olanzapine 5 Mg Tablet) 5 mg PO BID [facility] Last Admin: 07/01/24 08:39 Dose: 5 mg Polyethylene Glycol (Polyethylene Glycol 3350 17 Gm Powd.Pack) 17 gm PO DAILY PRN PRN Reason: Constipation Trazodone HCl (Trazodone Hcl 50 Mg Tablet) 50 mg PO BEDTIME MRX1 PRN PRN Reason: Insomnia Allergies Allergies Allergy/AdvReac Type Severity Reaction Status Date / Time codeine Allergy Severe Stomach Verified 06/26/24 13:31 Upset Assessment & Plan Assessment & Plan (1) Suicidal ideation: Status: Acute Code(s): R45.851 - Suicidal ideations (2) Depression: Qualifiers: Depression Type: major depressive disorder Major depression recurrence: recurrent Active/Remission status: currently active Major depression episode severity: severe Psychotic features: with psychotic features Qualified Code(s): F33.3 - Major depressive disorder, recurrent, severe with psychotic symptoms Status: Acute Code(s): F32.A - Depression, unspecified (3) OCD (obsessive compulsive disorder): Qualifiers: Obsessive-compulsive disorder type: mixed obsessional thoughts and acts Qualified Code(s): F42.2 - Mixed obsessional thoughts and acts Status: Acute Code(s): F42.9 - Obsessive-compulsive disorder, unspecified (4) Cocaine use disorder: Status: Inactive Code(s): F14.10 - Cocaine abuse, uncomplicated (5) Opioid use disorder: Status: Acute Code(s): F11.90 - Opioid use, unspecified, uncomplicated (6) Alcohol use: Status: Acute Code(s): F10.90 - Alcohol use, unspecified, uncomplicated Plan 06/28: continue present outpt regimen. check lithium level tonight, adjust dosing tomorrow accordingly. interested in DDx programming, will pursue with SW. 06/29: lithium level 0.25, labs reassuring. increase lithium to 600 BID. considering PHP. continue current mgmt otherwise. 06/30: c/o some tiredness, otherwise no complaints. DC ativan/CIWA as pt is not scoring. continue current regimen otherwise. 07/01: tiredness continues. wants to continue Tx plan. check labs thursday (ordered). T/C thursday discharge if stable and labs allow. Reason for continued inpatient stay Substantial Risk for: inability to function and rapid decompensation Time Spent With Patient Time: Total time managing care of this patient today _25___ minutes.
[2024-07-01 20:00] VITALS: BP 117/63; PULSE 69; RESP 18; TEMP 36.9; O2SAT 95
[2024-07-01] MEDS: clomiPRAMINE HCl 25 MG CAPSULE 100 MG PO (21:35)
[2024-07-01] MEDS: Mirtazapine 7.5 MG TABLET PO (21:43)
[2024-07-02 07:15] VITALS: BP 111/68; PULSE 69; RESP 14; TEMP 36.9; O2SAT 94
--- NOTE | 2024-07-02 08:46 | HO.PSYCHPN ---
Subjective Subjective Date of Service: 07/02/24 Reason For Visit: Crisis Subjective Notes: Conditional Voluntary Interim History: Keeping to self. Laying in bed most of shift. Pt reports feeling depressed but not anxious ; states he does not want to attend groups because he does not find them helpful. per nursing, slept 8 hours. denies SI/HI/VH/AH. Medication Compliance: Yes Side effects from medications: No Attending Groups: No Mental Status Exam Mental Status Exam Patient Appearance: Appropriate Patient Orientation: Person, Place, Time and Situation Level of Consciousness: Awake Patient Behavior: Appropriate and Cooperative Mood Description: Depressed Affect Description: Depressed Ability to Follow Directions: Good Speech Pattern: Clear Memory Description: Intact Hallucinations: None Delusions: Not Present Thought Process: Intact Thought Content: positive for Intact Judgement: Fair Diagnostics Vital Signs (24Hr): Vital Signs - 24 hr 07/01/24 20:00 07/02/24 07:15 Temperature 98.5 F 98.4 F Pulse Rate 69 69 Respiratory Rate 18 14 Blood Pressure 117/63 111/68 Pulse Oximetry 95 94 Oxygen Delivery Method Room Air Room Air BMI result Body Mass Index 29.6 Labs 06/26/24 15:41 06/28/24 20:12 Medications Medications Current Medications Acetaminophen (Acetaminophen 325 Mg Tablet) 650 mg PO Q6H PRN PRN Reason: Headache/Pain Mild Scale (1-3) Al Hydroxide/Mg Hydroxide (Magnesium Hydrox/Alum Hydrox 30 Ml Oral.Susp) 30 ml PO Q6H PRN PRN Reason: Heartburn/Nausea Clomipramine HCl (Clomipramine Hcl 25 Mg Capsule) 100 mg PO BEDTIME [facility] Last Admin: 07/01/24 21:35 Dose: 100 mg Clomipramine HCl (Clomipramine Hcl 25 Mg Capsule) 75 mg PO BID@0900,1700 [facility] Last Admin: 07/01/24 17:13 Dose: 75 mg Diazepam (Diazepam 2 Mg Tablet) 3 mg PO TID [facility] Last Admin: 07/01/24 21:35 Dose: 3 mg Docusate Sodium (Docusate Sodium 100 Mg Capsule) 100 mg PO BID [facility] Last Admin: 07/01/24 21:35 Dose: 100 mg [place] Carbonate ([place] Carbonate 300 Mg Capsule) 600 mg PO BID [facility] Last Admin: 07/01/24 21:36 Dose: 600 mg Magnesium Hydroxide (Milk Of Magnesia 30 Ml Oral.Susp) 30 ml PO DAILY PRN PRN Reason: Constipation Mirtazapine (Mirtazapine 7.5 Mg Tablet) 7.5 mg PO BEDTIME PRN PRN Reason: sleep Last Admin: 07/01/24 21:43 Dose: 7.5 mg Nicotine (Nicotine 21 Mg Patch.Td24) 21 mg TRANSDERMA DAILY [facility] Last Admin: 07/01/24 08:40 Dose: Not Given Nicotine Polacrilex (Nicotine Polacrilex 2 Mg Gum) 4 mg BUCCAL Q2H PRN PRN Reason: Nicotine Cravings Olanzapine (Olanzapine 5 Mg Tablet) 5 mg PO BID [facility] Last Admin: 07/01/24 21:36 Dose: 5 mg Polyethylene Glycol (Polyethylene Glycol 3350 17 Gm Powd.Pack) 17 gm PO DAILY PRN PRN Reason: Constipation Trazodone HCl (Trazodone Hcl 50 Mg Tablet) 50 mg PO BEDTIME MRX1 PRN PRN Reason: Insomnia Allergies Allergies Allergy/AdvReac Type Severity Reaction Status Date / Time codeine Allergy Severe Stomach Verified 06/26/24 13:31 Upset Assessment & Plan Assessment & Plan (1) Suicidal ideation: Status: Acute Code(s): R45.851 - Suicidal ideations (2) Depression: Qualifiers: Active/Remission status: currently active Depression Type: major depressive disorder Major depression episode severity: severe Major depression recurrence: recurrent Psychotic features: with psychotic features Qualified Code(s): F33.3 - Major depressive disorder, recurrent, severe with psychotic symptoms Status: Acute Code(s): F32.A - Depression, unspecified (3) OCD (obsessive compulsive disorder): Qualifiers: Obsessive-compulsive disorder type: mixed obsessional thoughts and acts Qualified Code(s): F42.2 - Mixed obsessional thoughts and acts Status: Acute Code(s): F42.9 - Obsessive-compulsive disorder, unspecified (4) Cocaine use disorder: Status: Inactive Code(s): F14.10 - Cocaine abuse, uncomplicated (5) Opioid use disorder: Status: Acute Code(s): F11.90 - Opioid use, unspecified, uncomplicated (6) Alcohol use: Status: Acute Code(s): F10.90 - Alcohol use, unspecified, uncomplicated Plan 06/28: continue present outpt regimen. check lithium level tonight, adjust dosing tomorrow accordingly. interested in DDx programming, will pursue with SW. 06/29: lithium level 0.25, labs reassuring. increase lithium to 600 BID. considering PHP. continue current mgmt otherwise. 06/30: c/o some tiredness, otherwise no complaints. DC ativan/CIWA as pt is not scoring. continue current regimen otherwise. 07/01: tiredness continues. wants to continue Tx plan. check labs thursday saulo (ordered). T/C thursday discharge if stable and labs allow. 07/02: continue current tx plan Patient educated on: therapeutic strategies Reason for continued inpatient stay Substantial Risk for: med/psych decompensation Time Spent With Patient Time: Total time managing care of this patient today _20___ minutes.
[2024-07-02] MEDS: clomiPRAMINE HCl 25 MG CAPSULE 75 MG PO ×2 (11:21→17:16)
[2024-07-02] MEDS: OLANZapine 5 MG TABLET PO ×2 (11:21→21:00)
[2024-07-02] MEDS: Docusate Sodium 100 MG CAPSULE PO ×2 (11:21→21:00)
[2024-07-02] MEDS: diazePAM 2 MG TABLET 3 MG PO ×3 (11:22→21:00)
[2024-07-02] MEDS: Lithium Carbonate 300 MG CAPSULE 600 MG PO ×2 (11:22→21:00)
[2024-07-02 20:01] VITALS: BP 128/76; PULSE 83; RESP 16; TEMP 36.9; O2SAT 97
[2024-07-02] MEDS: clomiPRAMINE HCl 25 MG CAPSULE 100 MG PO (20:59)
[2024-07-02] MEDS: Mirtazapine 7.5 MG TABLET PO (21:00)
[2024-07-03 07:41] VITALS: BP 116/62; PULSE 65; RESP 14; TEMP 36.9; O2SAT 97
--- NOTE | 2024-07-03 09:02 | HO.PSYCHPN ---
Subjective Subjective Date of Service: 07/03/24 Reason For Visit: Crisis Subjective Notes: Conditional Voluntary Interim History: Keeping to self. Laying in bed most of shift. observed out in [place], journaling. showered. Pt reports feeling depressed ; denies SI/HI/VH/AH. States he plans on attending AA meetings when discharged. Medication Compliance: Yes Side effects from medications: No Attending Groups: No Mental Status Exam Mental Status Exam Patient Appearance: Appropriate Patient Orientation: Person, Place, Time and Situation Level of Consciousness: Awake Patient Behavior: Appropriate and Cooperative Mood Description: Depressed Affect Description: Depressed Ability to Follow Directions: Good Speech Pattern: Clear Memory Description: Intact Hallucinations: None Delusions: Not Present Thought Process: Intact and Goal Oriented Thought Content: positive for Intact Judgement: Fair Diagnostics Vital Signs (24Hr): Vital Signs - 24 hr 07/02/24 20:01 07/03/24 07:41 Temperature 98.4 F 98.4 F Pulse Rate 83 65 Respiratory Rate 16 14 Blood Pressure 128/76 116/62 Pulse Oximetry 97 97 Oxygen Delivery Method Room Air Room Air BMI result Body Mass Index 29.6 Labs 06/26/24 15:41 06/28/24 20:12 Medications Medications Current Medications Acetaminophen (Acetaminophen 325 Mg Tablet) 650 mg PO Q6H PRN PRN Reason: Headache/Pain Mild Scale (1-3) Al Hydroxide/Mg Hydroxide (Magnesium Hydrox/Alum Hydrox 30 Ml Oral.Susp) 30 ml PO Q6H PRN PRN Reason: Heartburn/Nausea Clomipramine HCl (Clomipramine Hcl 25 Mg Capsule) 100 mg PO BEDTIME [facility] Last Admin: 07/02/24 20:59 Dose: 100 mg Clomipramine HCl (Clomipramine Hcl 25 Mg Capsule) 75 mg PO BID@0900,1700 [facility] Last Admin: 07/02/24 17:16 Dose: 75 mg Diazepam (Diazepam 2 Mg Tablet) 3 mg PO TID [facility] Last Admin: 07/02/24 21:00 Dose: 3 mg Docusate Sodium (Docusate Sodium 100 Mg Capsule) 100 mg PO BID [facility] Last Admin: 07/02/24 21:00 Dose: 100 mg [place] Carbonate ([place] Carbonate 300 Mg Capsule) 600 mg PO BID [facility] Last Admin: 07/02/24 21:00 Dose: 600 mg Magnesium Hydroxide (Milk Of Magnesia 30 Ml Oral.Susp) 30 ml PO DAILY PRN PRN Reason: Constipation Mirtazapine (Mirtazapine 7.5 Mg Tablet) 7.5 mg PO BEDTIME PRN PRN Reason: sleep Last Admin: 07/02/24 21:00 Dose: 7.5 mg Nicotine (Nicotine 21 Mg Patch.Td24) 21 mg TRANSDERMA DAILY [facility] Last Admin: 07/03/24 07:56 Dose: Not Given Nicotine Polacrilex (Nicotine Polacrilex 2 Mg Gum) 4 mg BUCCAL Q2H PRN PRN Reason: Nicotine Cravings Olanzapine (Olanzapine 5 Mg Tablet) 5 mg PO BID [facility] Last Admin: 07/02/24 21:00 Dose: 5 mg Polyethylene Glycol (Polyethylene Glycol 3350 17 Gm Powd.Pack) 17 gm PO DAILY PRN PRN Reason: Constipation Trazodone HCl (Trazodone Hcl 50 Mg Tablet) 50 mg PO BEDTIME MRX1 PRN PRN Reason: Insomnia Allergies Allergies Allergy/AdvReac Type Severity Reaction Status Date / Time codeine Allergy Severe Stomach Verified 06/26/24 13:31 Upset Assessment & Plan Assessment & Plan (1) Suicidal ideation: Status: Acute Code(s): R45.851 - Suicidal ideations (2) Depression: Qualifiers: Active/Remission status: currently active Depression Type: major depressive disorder Major depression episode severity: severe Major depression recurrence: recurrent Psychotic features: with psychotic features Qualified Code(s): F33.3 - Major depressive disorder, recurrent, severe with psychotic symptoms Status: Acute Code(s): F32.A - Depression, unspecified (3) OCD (obsessive compulsive disorder): Qualifiers: Obsessive-compulsive disorder type: mixed obsessional thoughts and acts Qualified Code(s): F42.2 - Mixed obsessional thoughts and acts Status: Acute Code(s): F42.9 - Obsessive-compulsive disorder, unspecified (4) Cocaine use disorder: Status: Inactive Code(s): F14.10 - Cocaine abuse, uncomplicated (5) Opioid use disorder: Status: Acute Code(s): F11.90 - Opioid use, unspecified, uncomplicated (6) Alcohol use: Status: Acute Code(s): F10.90 - Alcohol use, unspecified, uncomplicated Plan 06/28: continue present outpt regimen. check lithium level tonight, adjust dosing tomorrow accordingly. interested in DDx programming, will pursue with SW. 1/29: lithium level 0.25, labs reassuring. increase lithium to 600 BID. considering PHP. continue current mgmt otherwise. 06/30: c/o some tiredness, otherwise no complaints. DC ativan/CIWA as pt is not scoring. continue current regimen otherwise. 07/01: tiredness continues. wants to continue Tx plan. check labs thursday saulo (ordered). T/C thursday discharge if stable and labs allow. 07/02: continue current tx plan 07/03: continue tx plan Patient educated on: therapeutic strategies Reason for continued inpatient stay Substantial Risk for: med/psych decompensation Time Spent With Patient Time: Total time managing care of this patient today _20___ minutes.
[2024-07-03] MEDS: OLANZapine 5 MG TABLET PO ×2 (10:15→20:04)
[2024-07-03] MEDS: clomiPRAMINE HCl 25 MG CAPSULE 75 MG PO ×2 (10:15→17:03)
[2024-07-03] MEDS: diazePAM 2 MG TABLET 3 MG PO ×3 (10:16→20:52)
[2024-07-03] MEDS: Lithium Carbonate 300 MG CAPSULE 600 MG PO ×2 (10:16→20:03)
[2024-07-03] MEDS: Docusate Sodium 100 MG CAPSULE PO ×2 (10:16→20:04)
[2024-07-03 20:00] VITALS: BP 104/60; PULSE 76; RESP 16; TEMP 36.9; O2SAT 94
[2024-07-03] MEDS: Mirtazapine 7.5 MG TABLET PO (20:04)
[2024-07-03] MEDS: clomiPRAMINE HCl 25 MG CAPSULE 100 MG PO (20:04)
[2024-07-03 20:21] LABS: MANUAL DIFF FLAG NO
[2024-07-03 20:30] LABS: Basophils Absolute Auto 0.1 X10*3/uL (0.0-0.2); Basophils Percent Auto 0.5 % (0-2); Eosinophils Percent Auto 0.2 % (0-4); Hematocrit 45.5 % (42.0-52.0); Hemoglobin 15.7 g/dl (14.0-18.0); Imm Gran Abs Auto 0.06 X10*3/uL (0.00-0.03); Imm Gran Pct Auto 0.5 % (0.0-0.4); Lymphocytes Absolute Auto 2.7 X10*3/uL (1.2-4.9); Lymphocytes Percent Auto 21.9 % (20-40); Mean Corpuscular HGB Conc 34.5 g/dl (31.0-36.0); Mean Corpuscular Hemoglobin 29.5 pg (27.0-33.0); Mean Corpuscular Volume 85.5 fL (80.0-98.0); Mean Platelet Volume 9.2 fL (9.4-12.4); Monocytes Percent Auto 7.8 % (2-11); Neutrophils Absolute Auto 8.4 x10*3/uL (2.0-8.3); Neutrophils Percent Auto 69.1 % (45-73); Platelet Count 282 X10*3/uL (160-400); Red Blood Count 5.32 X10*6/uL (4.60-5.80); Red Cell Distribution Width 11.8 % (11.0-16.0); White Blood Count 12.1 X10*3/uL (4.8-10.8)
[2024-07-03 20:42] LABS: Lithium 0.78 mmol/L (0.60-1.20)
[2024-07-03 20:49] LABS: Anion Gap 15 (12-20); Blood Urea Nitrogen 15 mg/dL (9-16); Calcium 9.8 mg/dL (8.4-10.2); Carbon Dioxide 28 mmol/L (22-29); Chloride 102 mmol/L (96-108); Creatinine Clr Calc Pharmacy 104.5; Estimated Glomerular Filt Rate > 60; Glucose Random 106 mg/dL (60-115); Potassium 4.6 mmol/L (3.3-5.1); Sodium 140 mmol/L (135-145)
[2024-07-04 07:55] VITALS: BP 117/74; PULSE 73; RESP 16; TEMP 36.8; O2SAT 96
[2024-07-04] MEDS: Lithium Carbonate 300 MG CAPSULE 600 MG PO (09:23)
[2024-07-04] MEDS: clomiPRAMINE HCl 25 MG CAPSULE 75 MG PO (09:23)
[2024-07-04] MEDS: diazePAM 2 MG TABLET 3 MG PO (09:23)
[2024-07-04] MEDS: Docusate Sodium 100 MG CAPSULE PO (09:23)
[2024-07-04] MEDS: OLANZapine 5 MG TABLET PO (09:23)
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
--- NOTE | 2024-07-04 13:56 | PC.NURSE ---
Patient easily engaged. Planning to discharge to home with mother. Reports mood continues depressed, denies SI/HI plan or intent at this time. Reports it has been helpful to be here, feels he has gained what he needed while here. Discharge paperwork reviewed, reported understanding. Follow up appointments reviewed with patient, reports understanding. Medications reviewed with patient reports understanding. Planning to engage in recovery meetings following discharge. Crisis numbers provided to patient. All belongings taken with patient.
== END 2024-07-04 13:40 | disposition home or self-care (01) | DRG 754 ==
LOC: HO.ED 14:13 → HO.PADLT16 06-27 15:50
PROVIDERS: Nurse Practitioner Family; Admitting Provider Registered Nurse; Emergency Provider Emergency Medicine; PCP Physician Assistant; Visit Provider Psychiatry & Neurology Psychiatry
DX: F32.A Depression, unspecified (principal); R45.851 Suicidal ideations; F10.90 Alcohol use, unspecified, uncomplicated; F11.20 Opioid dependence, uncomplicated; F17.210 Nicotine dependence, cigarettes, uncomplicated; Z71.6 Tobacco abuse counseling; F42.9 Obsessive-compulsive disorder, unspecified; F14.10 Cocaine abuse, uncomplicated; Z79.899 Other long term (current) drug therapy
CPT/HCPCS: 36415; 80048; 80053; 80061; 80178; 80307; 81003; 85025; 93005; 99285; S9485

== ENCOUNTER → 2024-06-27 08:16 | Outpatient (BNV) | payer OTHER, SELFPAY | PROVIDERS: Admitting Provider Registered Nurse; Emergency Provider Emergency Medicine; PCP Physician Assistant; Visit Provider Internal Medicine | DX: R45.851 Suicidal ideations (principal); F11.90 Opioid use, unspecified, uncomplicated | CPT/HCPCS: 93010 ==

== ENCOUNTER → 2024-06-27 15:31 | Outpatient (BNV) | payer OTHER, SELFPAY | PROVIDERS: Admitting Provider Registered Nurse; Emergency Provider Emergency Medicine; PCP Physician Assistant; Visit Provider Psychiatry & Neurology Psychiatry | DX: R45.851 Suicidal ideations (principal); F33.3 Major depressive disorder, recurrent, severe with psychotic symptoms; F42.2 Mixed obsessional thoughts and acts; F14.10 Cocaine abuse, uncomplicated; F11.90 Opioid use, unspecified, uncomplicated; F10.90 Alcohol use, unspecified, uncomplicated | CPT/HCPCS: 90792; 99232 ==

== ENCOUNTER 2024-07-14 11:11 | Outpatient (AMB) | payer OTHER, SELFPAY ==
--- NOTE | 2024-07-14 11:19 | A.OFFPC_ITS ---
Vital Signs 07/14/24 11:21 Height 5 ft 6 in Weight 185 lb BMI 29.9 BP 122/70 Blood Pressure Location Lt brachial Position Sitting Pulse 103 H Pulse Source Pulse Oximeter Temp 96.4 F L Temp Source Skin Pulse Oximetry (%) 97 Oxygen Delivery Method Room Air Intake Visit Reasons: [facility] Behavioral Unit D/C 07/04 Intake Note: Patient is here for hospital discharge follow up. Patient was discharged from [facility] on 07/04/24. Edi Coordinator Required: No [employer] Advanced Operator Maintainer: Not Required per policy Accompanied by: Self / Same As Patient Allergies codeine Allergy (Severe, Verified 07/14/24 11:47) Stomach Upset Medication List - Last Reconciled 07/14/24 by Rowena Russo PA-C buprenorphine ER (Sublocade) 100 mg subcut Q28D clomipramine 100 mg (2 x 50 mg) PO BEDTIME 30 days clomipramine 75 mg PO BID 30 days diazepam 3 mg (1.5 x 2 mg) PO TID 14 days docusate sodium 100 mg PO BID 30 days lithium carbonate 600 mg (2 x 300 mg) PO BID 30 days magnesium glycinate 100 mg PO .bedtime 30 days mirtazapine 7.5 mg PO BEDTIME PRN 30 days naloxone 4 mg/actuation (Narcan) 4 mg intranasal Q2M PRN olanzapine 10 mg (2 x 5 mg) PO BEDTIME 30 days polyethylene glycol 3350 17 grams PO DAILY PRN 30 days Tobacco use date assessed: 07/14/24 Dental Screening Dental Screen Date: 07/14/24 Did you have a dental visit in the last 12 months?: No Did you have a dental problem in the last 6 months where you did not have access to dental care?: No Was dental information given to patient?: Patient has dentist [facility] Medical History Hospital discharge follow-up Encounter for lithium monitoring Overweight (BMI 25.0-29.9) History of hepatitis C Testicular cancer Polysubstance abuse Depression Surgical History History of orchiectomy Hx of cholecystectomy Family History Father Diabetes Mother No problems noted. Other Substance use disorder Social History Household Members: Other Household Members Other:: Mother Housing: House Do you presently have visiting nurse or other home services: No Alcohol intake: current Alcohol intake frequency: a few times a week Alcohol type: beer and hard liquor Comment: once Q 2 weeks 3 drinks Patient Tobacco Use Status: Current everyday Tobacco user Tobacco use type: Cigarette Cigarette Packs Per Day: 0.5 Cigarettes Per Day: 10 Years Smoked: roll - 8 aday - e-Cigarette/Vaping Use: Never Used Second Hand Smoke Exposure: Yes Substance Use Type: Crack/Cocaine and Caffiene service: No Current occupational status: employed Current occupation: [employer] Sexual orientation: Straight/Heterosexual Cognitive needs: No Hearing needs: No Vision needs: No Questionnaire PHQ-9 Over the last 2 weeks, how often have you been bothered by any of the following problems? 1. Little interest or pleasure in doing things: nearly every day 2. Feeling down, depressed, or hopeless: nearly every day 3. Trouble falling or staying asleep, or sleeping too much: not at all 4. Feeling tired or having little energy: nearly every day 5. Poor appetite or overeating: several days 6. Feeling bad about yourself - or that you are a failure or have let yourself or your family down: nearly every day 7. Trouble concentrating on things, such as reading the newspaper or watching television: nearly every day 8. Moving or speaking so slowly that other people could have noticed. Or the opposite - being so fidgety or restless that you have been moving around a lot more than usual: not at all 9. Thoughts that you would be better off or of hurting yourself in some way: several days Total score: 17 Depression Screening Interpretation: Positive Depression Screening Done: Yes 51673 - PHQ-9 Billing: Yes (Patient on medications, is in therapy and see's a psychiatrist. Feels better then he did in the ER and while admitted. Living with Mother. ) Source: Developed by Drs. Shayan Dover, Anum Ojeda, Chidi Jett and colleagues, with an educational mian from [employer]. Thrive Questionnaire Date Thrive assessed: 07/14/24 AUDIT C Alcohol Use Questionnaire (AUDIT-C) 1. How often do you have a drink containing alcohol?: 2-3 times a week 2. How many drinks containing alcohol do you have on a typical day when you are drinking?: 3 or 4 Total Score: 4 Score Reviewed/Action Taken: Yes LILIANE-7 AMB Questionnaire LILIANE-7 Date LILIANE - 7 assessed: 07/14/24 Feeling nervous, anxious, or on edge: 3 = Nearly every day Not being able to stop or control worryin = Nearly every day Worrying too much about different things: 3 = Nearly every day Trouble relaxin = Nearly every day Being so restless that it is hard to sit still: 3 = Nearly every day Becoming easily annoyed or irritable: 1 = Several days Feeling afraid as if something awful might happen: 1 = Several days Total LILIANE-7 score (0-4 normal; 5-9 mild; 10-14 moderate; 15-21 severe): 17 Source: Developed by Drs. Shayan Dover, Anum Ojeda, Chidi Jett and colleagues, with an educational mian from [employer]. LILIANE-7 Assessment Billing LILIANE-7 Assessment Tool: LILIANE-7 Assessment 90019 Physical exam (Primary Care) Vital Signs: Last Vital Signs Temp 96.4 F L 07/14/24 11:21 Pulse 103 H 07/14/24 11:21 BP 122/70 07/14/24 11:21 Pulse Ox 97 07/14/24 11:21 Oxygen Delivery Method Room Air 07/14/24 11:21 Care Plan Goal for BP management: 130/80 BMI result Body Mass Index 29.9 BMI Assessment/Plan discussion: High BMI High, discussed plan: lifestyle, weight reduction, dietary, physical activity and alcohol moderation Tobacco/Smoking Status: Tobacco use Status Tobacco use date assessed 07/14/24 07/14/24 11:28 Patient Tobacco Use Status Current everyday Tobacco 07/14/24 11:28 Tobacco use type Cigarette 07/14/24 11:28 e-Cigarette/Vaping Use Never Used 07/14/24 11:28 PHQ-9: PHQ-9 Score PHQ-9: Total score 17 07/14/24 11:28 Depression Screening Interpretation: Positive Thrive Assessment: Date of Thrive Assessment Date Thrive assessed 07/14/24 07/14/24 11:28 Coding Level of Care Code Est Pt Level 4 (74438) Complex EM visit Add On G2211 Diagnoses Overweight (BMI 25.0-29.9) E66.3 Mixed hyperlipidemia E78.2 Hyperlipidemia type: mixed hyperlipidemia Encounter for lithium monitoring Z51.81; Z79.899 Hospital discharge follow-up Z09 Alcohol use F10.90 Opioid use disorder F11.90 Severe episode of recurrent major depressive disorder, with psychotic features F33.3 Depression Type: major depressive disorder Major depression recurrence: recurrent Active/Remission status: currently active Major depression episode severity: severe Psychotic features: with psychotic features Mixed obsessional thoughts and acts F42.2 Obsessive-compulsive disorder type: mixed obsessional thoughts and acts Polysubstance abuse F19.10 Additional Codes PHQ-9 - 28130 - PHQ-9 Billing: Yes ([id number]) LILIANE-7 Assessment Billing - LILIANE-7 Assessment Tool: LILIANE-7 Assessment 21459 ([id number]) Assessment & Plan Assessment & Plan (1) Overweight (BMI 25.0-29.9): Code(s): E66.3 - Overweight Category: Medical Plan: BMI 29.9. Patient will improve his diet and exercise regimen. Will refer to weight management and intermediate frame tender. Explained to patient may be related to some of his psychiatric medications he is currently on although would not advise discontinuing these medication. Patient in agreement with this. Condition is chronic and stable continue to monitor. (2) Hyperlipidemia: Code(s): E78.5 - Hyperlipidemia, unspecified Category: Medical Qualifiers: Hyperlipidemia type: mixed hyperlipidemia Qualified Code(s): E78.2 - Mixed hyperlipidemia Plan: It appears patient has elevated triglycerides of 334, total cholesterol of 228, LDL of 134 and HDL of 28. Patient will turn 39 next month and we discussed starting a statin and patient is agreeable will start on simvastatin 10 mg at bedtime. Condition is chronic and stable continue to monitor. (3) Encounter for lithium monitoring: Code(s): Z51.81 - Encounter for therapeutic drug level monitoring; Z79.899 - Other senior living (current) drug therapy Category: Medical Plan: I discussed the patient's lithium with the psychiatrist Dr. Armando Govea from the hospital and he reported that the patient should be on 600 mg of lithium b.i.d.. He also recommended having repeat lithium levels. Will order lithium levels. Condition is chronic and stable continue to monitor. (4) Hospital discharge follow-up: Code(s): Z09 - Encounter for follow-up examination after completed treatment for conditions other than malignant neoplasm Category: Medical Plan: Patient reports improvement in his anxiety, depression, OCD and ideations he was having. He reports he is taking his medications as prescribed. He has a thera pist and psychiatrist. He will follow-up in 1 month with PCP. Will continue to monitor. (5) Alcohol use: Code(s): F10.90 - Alcohol use, unspecified, uncomplicated Category: Social Hx Plan: Condition is chronic and stable. No signs of withdrawal at this time. Will continue to monitor. (6) Opioid use disorder: Code(s): F11.90 - Opioid use, unspecified, uncomplicated Category: Medical Plan: Patient denies any recent opioid usage. Will continue to monitor (7) Depression: Code(s): F32.A - Depression, unspecified Category: Medical Qualifiers: Depression Type: major depressive disorder Major depression recurrence: recurrent Active/Remission status: currently active Major depression episode severity: severe Psychotic features: with psychotic features Qualified Code(s): F33.3 - Major depressive disorder, recurrent, severe with psychotic symptoms Plan: Patient currently on lithium was taking 600 mg daily. Instructed patient to take 600 mg b.i.d.. Patient to continue buprenorphine extended release 100 mg subQ every 28 days, olanzapine 10 mg p.o. at bedtime, Remeron 7.5 mg at bedtime p.r.n., magnesium clycinate 100 mg at bedtime, diazepam 3 mg p.o. t.i.d., Clomiprimine. Condition is chronic and stable continue to monitor. (8) OCD (obsessive compulsive disorder): Comment: Psychiatry [facility] once a month, therapist Marco once a week (06/2023) Code(s): F42.9 - Obsessive-compulsive disorder, unspecified Category: Medical Qualifiers: Obsessive-compulsive disorder type: mixed obsessional thoughts and acts Qualified Code(s): F42.2 - Mixed obsessional thoughts and acts Plan: Patient currently on lithium was taking 600 mg daily. Instructed patient to take 600 mg b.i.d.. Patient to continue buprenorphine extended release 100 mg subQ every 28 days, olanzapine 10 mg p.o. at bedtime, Remeron 7.5 mg at bedtime p.r.n., magnesium clycinate 100 mg at bedtime, diazepam 3 mg p.o. t.i.d., Clomiprimine. Condition is chronic and stable continue to monitor. (9) Polysubstance abuse: Comment: history of heroin and cocaine abuse, last used 2020 Code(s): F19.10 - Other psychoactive substance abuse, uncomplicated Category: Medical Plan: Patient denies any recent drug usage. Will continue to monitor. Plan Plan - Continue current psychiatric medications as adjusted, emphasize adherence to lithium 600 mg BID. - Monitor lipid profile due to hyperlipidemia; initiate simvastatin 10 mg at bedtime. - Consider outpatient involvement in weight management program; no initiation of weight loss medication due to potential interactions with psychiatric conditions. - Advise referral to primary care provider for further evaluation and possibly initiating statins given high cholesterol and impending 39th birthday. - Confirm substance use status remains abstinent for drugs; continue monitoring alcohol intake levels. - Encourage ongoing therapy and psychiatric follow-up for depression and OCD symptoms. Orders: Orders Complete Blood Count Auto Diff Today Z00.00 - Encounter for general adult medical examination without abnormal findings Comprehensive Met. Panel Today Z00.00 - Encounter for general adult medical examination without abnormal findings TSH reflex Free T4 Today Z00.00 - Encounter for general adult medical examination without abnormal findings [place] Today Z51.81 - Encounter for therapeutic drug level monitoring, Z79.899 - Other press tender long goods (current) drug therapy Referrals Medical Weight Management Referral E66.3 - Overweight Reporter Anchor Nutrition Referral E66.3 - Overweight Medications: New simvastatin 10 mg PO BEDTIME 90 tabs 1RF Patient Instructions: Patient Instructions - Take lithium 600 mg twice a day as currently prescribed. - Begin simvastatin 10 mg at night for cholesterol management. - Continue with therapy and psychiatric appointments for mental health support. - Avoid resumption of cocaine use and moderate alcohol consumption to two beers or less. - Consider dietary adjustments and exercise under guidance from a weight management program. - Schedule a follow-up appointment with your primary care provider, [facility], to discuss further management. Scribe Plan - Not visible on output: History of Present Illness The patient is a 38-year-old male presenting for hospital discharge follow-up. Patient presents with concerns related to recent hospitalization for mental health issues, including major depressive disorder, obsessive compulsive disorder, and substance use. The patient was admitted on June 27, 2024, and discharged on July 04, 2024, after experiencing episodes of depression with thoughts of self-harm, OCD, and reporting crack cocaine and alcohol use. At the time of discharge, the patient was instructed to continue outpatient treatment and medication management, with an increased dosage of lithium from 300 mg daily to 600 mg twice daily. However, the patient reports he is currently only taking 600 mg once daily. Recent lab work showed a lithium level of 0.25, and no withdrawal symptoms were present, thus negating the need for Ativan while admitted. The patient is currently living with his mother, attending therapy sessions, and consulting a psychiatrist. He reports feeling significantly improved since discharge, with a decrease in depressive symptoms. The patient has noted recent weight gain and expresses concerns regarding obesity, but no significant interventions have been attempted for weight loss, aside from potential medication considerations. Social History - Resides with mother; not living independently - Current alcohol consumption includes two beers the previous night, with no excessive use reported - Tobacco use is ongoing; specific amounts not detailed - Recent cessation of cocaine use; last reported usage was during hospitalization - Obesity with a BMI of 29.9; recent weight gain addressed - Regular attendance in therapy and psychiatrist visits Review of Systems - Psychiatric: Reports improvement in depressive symptoms, without current suicidal ideation. Physical Exam Appearance: Alert. Oriented X3. No acute distress. Head: Normal external exam. Normocephalic. Atraumatic. Eyes: Pupils are equal, round, and reactive to light. Extraocular movements intact. Conjunctiva and sclera normal. Eyelids normal. Ears: External auditory canal normal. Tympanic membranes normal. Throat: Pharynx normal. Uvula midline. Moist mucous membranes. Neck: Normal inspection. Neck supple. Full range of motion. Cardiovascular: Normal heart rate and rhythm. Heart sound normal. No murmurs noted. Pulses normal throughout. Respiratory: No respiratory distress. Painless inspiration. Breath sounds normal. No wheezes/rales/rhonchi noted. Chest nontender. No accessory muscle usage noted or decreased air movement noted. Abdomen: Soft and nontender. No distention noted. No organomegaly noted. No visible injury noted. Back: No costovertebral angle tenderness. Full range of motion noted. Skin: Skin warm and dry. Normal skin color. Normal skin turgor. No rashes/lesions/lacerations noted. Extremities: No lower extremity edema. Extremities exhibit normal range of motion. Extremities nontender. Neuro: Oriented X 3. No motor deficit. No sensory deficit. Reflexes normal. Results - Labs: [place] level measured at 0.25; hyperlipidemia noted with high cholest nikhil levels. Plan - Continue current psychiatric medications as adjusted, emphasize adherence to lithium 600 mg BID. - Monitor lipid profile due to hyperlipidemia; initiate simvastatin 10 mg at bedtime. - Consider outpatient involvement in weight management program; no initiation of weight loss medication due to potential interactions with psychiatric conditions. - Advise referral to primary care provider for further evaluation and possibly initiating statins given high cholesterol and impending 39th birthday. - Confirm substance use status remains abstinent for drugs; continue monitoring alcohol intake levels. - Encourage ongoing therapy and psychiatric follow-up for depression and OCD symptoms. Patient was informed and verbally consented to the use of an ambient scribe for clinic note documentation during this visit. Discussion Notes During our conversation, I reiterated to the patient the importance of sticking to the prescribed psychiatric regimen, including accurately taking lithium as directed twice a day. We discussed the introduction of simvastatin to address elevated cholesterol levels due to the risk of cardiovascular disease, especially with the patient's approaching 39th birthday. I highlighted the benefits of stabilization in mental health and physical health, and the risks of further weight gain and hyperlipidemia. No weight loss medication was started due to potential exacerbation of depression, but the patient was referred to a weight management program to explore other safe weight loss strategies. Follow- up with the primary care provider was emphasized for comprehensive management and to monitor response to simvastatin. Patient Instructions - Take lithium 600 mg twice a day as currently prescribed. - Begin simvastatin 10 mg at night for cholesterol management. - Continue with therapy and psychiatric appointments for mental health support. - Avoid resumption of cocaine use and moderate alcohol consumption to two beers or less. - Consider dietary adjustments and exercise under guidance from a weight management program. - Schedule a follow-up appointment with your primary care provider, [facility], to discuss further management.
[2024-07-14 11:21] VITALS: BP 122/70; PULSE 103; TEMP 35.8; O2SAT 97; BMI 29.9
== END 2024-07-14 11:58 | disposition home or self-care (01) ==
PROVIDERS: PCP Physician Assistant; Visit Provider Physician Assistant Medical
DX: E78.2 Mixed hyperlipidemia (principal); F33.3 Major depressive disorder, recurrent, severe with psychotic symptoms; F19.10 Other psychoactive substance abuse, uncomplicated; E66.3 Overweight; Z51.81 Encounter for therapeutic drug level monitoring; Z79.899 Other long term (current) drug therapy; Z09 Encounter for follow-up examination after completed treatment for conditions other than malignant neoplasm; F10.90 Alcohol use, unspecified, uncomplicated; F11.90 Opioid use, unspecified, uncomplicated; F42.2 Mixed obsessional thoughts and acts

== ENCOUNTER → 2024-07-14 11:11 | Outpatient (BNVA) | payer OTHER, SELFPAY | PROVIDERS: PCP Physician Assistant; Visit Provider Physician Assistant Medical | DX: Z09 Encounter for follow-up examination after completed treatment for conditions other than malignant neoplasm (principal); E66.3 Overweight; E78.2 Mixed hyperlipidemia; F10.90 Alcohol use, unspecified, uncomplicated; F11.90 Opioid use, unspecified, uncomplicated; F33.3 Major depressive disorder, recurrent, severe with psychotic symptoms; F42.2 Mixed obsessional thoughts and acts; F19.10 Other psychoactive substance abuse, uncomplicated; Z79.899 Other long term (current) drug therapy | CPT/HCPCS: 96127; 99212 ==

== ENCOUNTER → 2024-08-03 12:26 | Outpatient (AMB) | payer OTHER, SELFPAY ==
--- NOTE | 2024-08-03 12:50 | A.OFFVIS_ITS ---
VS Expanded 08/03/24 12:58 Height 5 ft 6 in Weight 182 lb 15.739 oz BMI 29.5 Intake Visit Reasons: Overweight Allergies codeine Allergy (Severe, Verified 07/14/24 11:47) Stomach Upset Nutrition Presentation Details: Pt presents for MNT for overweight Pt reports having gained about 26 lbs in about 3 months typical wt at 160 lbs Pt reports having increased appetites for sweets and is working on reducing or choosing a healthier food option Typical meal B: cereal cheerios with trailmix and rasins, almond milk L: boile egs/apple/yogurt or peanut butter jelly and apple D: pasta/meat sauce or pizza or egg and toast (varies) walks: walking the dog once/day has a treadmill at home - contemplating using it in the evening reports developing upset stomach when having lactose containing foods BS Monitoring Most Recent Diabetes Results: Cholesterol 228 mg/dL (<200) H 06/28/24 HDL Cholesterol 28 mg/dL (>40) L 06/28/24 Triglycerides 334 mg/dL (<150) H 06/28/24 Creatinine 0.96 mg/dL (0.5-1.4) 07/03/24 Blood Urea Nitrogen 15 mg/dL (9-16) 07/03/24 Sodium 140 mmol/L (135-145) 07/03/24 Potassium 4.6 mmol/L (3.3-5.1) 07/03/24 Chloride 102 mmol/L (96-108) 07/03/24 Carbon Dioxide 28 mmol/L (22-29) 07/03/24 Calcium 9.8 mg/dL (8.4-10.2) 07/03/24 AST 28 U/L (5-37) 06/27/24 ALT 42 U/L (0-40) H 06/27/24 Total Protein 7.6 g/dL (6.5-8.0) 06/27/24 Albumin 4.4 g/dL (3.5-5.0) 06/27/24 RHN-Vdevpdj-En.Jeor Equation Height: 5 ft 6 in Weight: 183 lb Resting Metabolic Rate: 1690.11 Calculated Activity Level: Sedentary Calories Needed to Maintain Weight: 2027.13 Diagnosis Nutrition problem #1: excessive energy intake As related to (etiology) #1: diagnosis As evidenced by (sign/symptom) #1: high BMI (29.5) [facility] Medical History Hospital discharge follow-up Encounter for lithium monitoring Overweight (BMI 25.0-29.9) History of hepatitis C Testicular cancer Polysubstance abuse Depression Surgical History History of orchiectomy Hx of cholecystectomy Family History Father Diabetes Mother No problems noted. Other Substance use disorder Social History Household Members: Other Household Members Other:: Mother Housing: House Do you presently have visiting nurse or other home services: No Alcohol intake: current Alcohol intake frequency: a few times a week Alcohol type: beer and hard liquor Comment: once Q 2 weeks 3 drinks Patient Tobacco Use Status: Current everyday Tobacco user Tobacco use type: Cigarette Cigarette Packs Per Day: 0.5 Cigarettes Per Day: 10 Years Smoked: roll - 8 aday - e-Cigarette/Vaping Use: Never Used Second Hand Smoke Exposure: Yes Substance Use Type: Crack/Cocaine and Caffiene service: No Current occupational status: employed Current occupation: [employer] Sexual orientation: Straight/Heterosexual Cognitive needs: No Hearing needs: No Vision needs: No Assessment & Plan Assessment & Plan (1) Overweight (BMI 25.0-29.9): Code(s): E66.3 - Overweight Category: Medical Plan: Wt: 83 Kg ( 08/23 ) Est kcal needs as per MSJ: 2000 (40% carb, 30% protein/fat) Est fluid needs as per 25-30 ml/d: 2100 Est prot per day as per 1 g/kg bw: 83 Recommend fiber intake : 8-10 g per day and gradually increase to 25-28 g per day for women and 35-38 g for men or as tolerated Recommend sodium intake per day : less than 2000 mg Educated patient on: ( R = reviewed V = verbalizes understanding N/R = needs review N/A = not applicable * Food sources of carbohydrate, adequate serving sizes and its role in various health conditions: R V N/R * Differences between complex carbohydrates a simple carbohydrates, role of fiber in diet: R * Lean protein sources of foods: R V NR * Differences between types of fats and role in diet (mono on saturated fat fatty acids, saturated fatty acids, trans fats): R V N/R * Food sources of sodium in salt and healthy modifications for heart health in kidney health: R V R/V * Vitamins and minerals: R V N/R * Healthy plate method concept: R V N/R * Physical activity: Benefits a precaution: R Patient Instructions: Practice mindful eating Have a yogurt with nutmeg or cinnamon as bedtime snack Choose fiber rich foods (whole grain breads, non starchy vegetables, fruits ) see options printed out Coding Level of Care Code Nutr Indiv Intake (05530) Diagnoses Overweight (BMI 25.0-29.9) E66.3 Time Spent (min) 30
[2024-08-03 12:58] VITALS: BMI 29.5
[2024-08-03 13:20] VITALS: BMI 29.5
== END ==
PROVIDERS: PCP Physician Assistant; Visit Provider Dietitian, Registered
DX: E66.3 Overweight (principal)

== ENCOUNTER → 2024-08-03 12:26 | Outpatient (BNVA) | payer OTHER, SELFPAY | PROVIDERS: PCP Physician Assistant; Visit Provider Dietitian, Registered | DX: E66.3 Overweight (principal) | CPT/HCPCS: 97802 ==

== ENCOUNTER 2024-08-04 13:45 | Outpatient (AMB) | payer OTHER, SELFPAY ==
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
== END 2024-08-04 14:51 | disposition home or self-care (01) ==
LOC: HO.HOP 13:45
PROVIDERS: PCP Physician Assistant; Visit Provider Clinical Nurse Specialist Psychiatric/Mental Health
DX: F33.2 Major depressive disorder, recurrent severe without psychotic features (principal); F14.10 Cocaine abuse, uncomplicated; F42.2 Mixed obsessional thoughts and acts; Z09 Encounter for follow-up examination after completed treatment for conditions other than malignant neoplasm
CPT/HCPCS: 99215

== ENCOUNTER → 2024-08-04 13:45 | Outpatient (BNVA) | payer OTHER, SELFPAY | PROVIDERS: PCP Physician Assistant; Visit Provider Clinical Nurse Specialist Psychiatric/Mental Health | DX: F42.9 Obsessive-compulsive disorder, unspecified (principal); F33.2 Major depressive disorder, recurrent severe without psychotic features; F42.2 Mixed obsessional thoughts and acts; F14.10 Cocaine abuse, uncomplicated; Z09 Encounter for follow-up examination after completed treatment for conditions other than malignant neoplasm; Z71.89 Other specified counseling; Z51.81 Encounter for therapeutic drug level monitoring; Z79.899 Other long term (current) drug therapy | CPT/HCPCS: 99212 ==

== ENCOUNTER 2024-08-11 11:04 | Outpatient (AMB) | payer OTHER, SELFPAY ==
--- NOTE | 2024-08-11 11:13 | A.OFFPC_ITS ---
Vital Signs 08/11/24 11:14 Height 5 ft 6 in Weight 184 lb 4 oz BMI 29.7 BP 100/68 Blood Pressure Location Lt brachial Position Sitting Pulse 81 Pulse Source Pulse Oximeter Temp 97.1 F Temp Source Temporal Artery Scan Pulse Oximetry (%) 98 Oxygen Delivery Method Room Air Intake Visit Reasons: 1mth f/u Intake Note: Patient is here to follow up on Depression and med review. [employer] Required: No Pattern Fitter: Not Required per policy Accompanied by: Self / Same As Patient Allergies codeine Allergy (Severe, Verified 08/11/24 11:35) Stomach Upset Medication List - Last Reconciled 08/11/24 by Antonio Moreno PA-C buprenorphine ER (Sublocade) 100 mg subcut Q28D clomipramine 100 mg (2 x 50 mg) PO BEDTIME 30 days clomipramine 75 mg PO BID 30 days diazepam 3 mg (1.5 x 2 mg) PO TID 14 days docusate sodium 100 mg PO BID 30 days lithium carbonate 600 mg (2 x 300 mg) PO BID 30 days magnesium glycinate 100 mg PO .bedtime 30 days mirtazapine 7.5 mg PO BEDTIME PRN 30 days naloxone 4 mg/actuation (Narcan) 4 mg intranasal Q2M PRN olanzapine 10 mg (2 x 5 mg) PO BEDTIME 30 days polyethylene glycol 3350 17 grams PO DAILY PRN 30 days simvastatin 10 mg PO BEDTIME Tobacco use date assessed: 08/11/24 Dental Screening Dental Screen Date: 07/14/24 HPI 1mth f/u HPI Details Patient is a 38-year-old male here today for Patient has a past medical history significant for OCD, substance use disorder, history of hepatitis-C, depression. .. Mood disorder/ Depression : Recently admitted to [facility] for acute suicidal ideation. He has made some med changes and now is in partial hospitalization program. has establish with outpatient psychiatrist whom is managing and titrating medication. Now when higher dose of lithium. Reports he still feels depressed though not as depressed as he was a few months ago. He is concerned about his weight as he has gained significant amount of weight over the last 6 months to which we attributed to his psychiatric medication. He reports recently stopping his olanzapine due to fears of continued weight gain .. Opiate use disorder: Has been sober for few months now per patient Continues to stay sober from street drugs with the use of buprenorphine. .. TObaCcO uSE disorder: he does report smoking about 10 rolled cigarettes per day. Not interested in quitting at this time. .. Hyperlipidemia: Most recent lipid panel showing very elevated total cholesterol and LDL which could be related to his psychiatric medication. Laboratory Tests 06/26/24 06/28/24 07/03/24 15:41 20:12 20:14 WBC 14.0 H 12.1 H Triglycerides 334 H Cholesterol 228 H [place] 0.25 L 0.78 PFSH Medical History Hospital discharge follow-up Encounter for lithium monitoring Overweight (BMI 25.0-29.9) History of hepatitis C Testicular cancer Polysubstance abuse Depression Surgical History History of orchiectomy Hx of cholecystectomy Family History Father Diabetes Mother No problems noted. Other Substance use disorder Social History Household Members: Other Household Members Other:: Mother Housing: House Do you presently have visiting nurse or other home services: No Alcohol intake: current Alcohol intake frequency: a few times a week Alcohol type: beer and hard liquor Comment: once Q 2 weeks 3 drinks Patient Tobacco Use Status: Current everyday Tobacco user Tobacco use type: Cigarette Cigarette Packs Per Day: 0.5 Cigarettes Per Day: 10 Years Smoked: roll - 8 aday - e-Cigarette/Vaping Use: Never Used Second Hand Smoke Exposure: Yes Substance Use Type: Crack/Cocaine and Caffiene service: No Current occupational status: employed Current occupation: [employer] Sexual orientation: Straight/Heterosexual Cognitive needs: No Hearing needs: No Vision needs: No Questionnaire Thrive Questionnaire Date Thrive assessed: 07/14/24 LILIANE-7 AMB Questionnaire LILIANE-7 Date LILIANE - 7 assessed: 07/14/24 Source: Developed by Drs. Shayan Dover, Anum Ojeda, Chidi Jett and colleagues, with an educational main from [employer]. Review of Systems Const Denies headache(s) Eyes Denies loss of vision ENT Denies vertigo, Denies dizziness, Denies headache(s) and Denies sore throat Card Denies chest pain, Denies leg edema and Denies lightheadedness Resp Denies cough, Denies hemoptysis and Denies wheezing GI Denies abdominal pain, Denies melena, Denies constipation, Denies diarrhea and Denies vomiting Denies dysuria, Denies urinary frequency and Denies urinary urgency Musc Denies arthralgias, Denies joint swelling, Denies numbness and Denies tingling Neuro Denies Abnormal speech present, Denies behavioral changes, Denies vertigo, Denies dizziness, Denies headache(s), Denies loss of vision, Denies memory loss, Denies numbness and Denies tingling Psych Denies anxiety, Denies behavioral changes, Denies depression, Denies memory loss and Denies panic attacks Audie/Lymph Denies easy bleeding and Denies easy bruising Aller/Immun Denies wheezing Physical exam (Primary Care) Vital Signs: Last Vital Signs Temp 97.1 F 08/11/24 11:14 Pulse 81 08/11/24 11:14 BP 100/68 08/11/24 11:14 Pulse Ox 98 08/11/24 11:14 Oxygen Delivery Method Room Air 08/11/24 11:14 BMI result Body Mass Index 29.7 Tobacco/Smoking Status: Tobacco use Status Tobacco use date assessed 08/11/24 08/11/24 11:18 Patient Tobacco Use Status Current everyday Tobacco 08/11/24 11:14 Tobacco use type Cigarette 08/11/24 11:14 e-Cigarette/Vaping Use Never Used 08/11/24 11:14 Are you ready to quit: No Tobacco cessation counseling provided: Yes Items discussed: Nicotine replacement Relapse Prevention: discussed the importance of a supportive environment, discussed negative mood or depression after quitting, weight gain after smoking is common and discussed dietary, exercise and/or lifestyle changes Number of minutes spent counselin CPT code: 46748 - 4-10 Minutes Thrive Assessment: Date of Thrive Assessment Date Thrive assessed 07/14/24 08/11/24 11:14 Const General: healthy appearing, no acute distress, alert and awake Nutritional Appearance: well nourished Orientation/consciousness: oriented to person, oriented to place and oriented to time HENMT Ears: TM's normal bilaterally General nose exam: Normal nasal mucous membranes and turbinates present Eyes Conjunctivae: conjunctivae normal Sclerae: sclerae normal Pupils: Equal, round and reactive pupils present Neck Neck: Yes no lymphadenopathy and Yes no JVD Thyroid: Thyroid normal Carotids: no bruits Resp Effort & Inspection: normal respiratory effort and not tachypneic Auscultation: no crackles, no rales, no rhonchi and no wheezes Cardio Rate: regular rate Rhythm: regular rhythm Heart sounds: no murmurs and normal S1 and S2 GI Palpation (GI): Soft to palpation, nontender, no hepatomegaly and no splenomegaly Auscultation: normal bowel sounds Skin General skin exam: no rashes or lesions noted and dry skin Neuro General: oriented to person, oriented to place and oriented to time Cranial nerves: Yes Equal, round and reactive pupils present Speech: No Abnormal speech present Gait exam (Neuro): Normal gait present Motor exam (neuro): no tremor noted Extrem Right upper extremity: full ROM Left upper extremity: full ROM Right lower extremity: full ROM; no edema Left lower extremity: full ROM; no edema Psych Mental Status: mental status grossly normal Speech and movement: Normal speech and movement present Affect: No normal affect and Blunted affect present Attitude: cooperative Thought process: Normal thought process present Coding Level of Care Code Est Pt Level 4 (54920) Diagnoses Severe episode of recurrent major depressive disorder, with psychotic features F33.3 Active/Remission status: currently active Depression Type: major depressive disorder Major depression episode severity: severe Major depression recurrence: recurrent Psychotic features: with psychotic features Polysubstance abuse F19.10 Mixed obsessional thoughts and acts F42.2 Obsessive-compulsive disorder type: mixed obsessional thoughts and acts Mixed hyperlipidemia E78.2 Hyperlipidemia type: mixed hyperlipidemia Generalized anxiety disorder F41.1 Tobacco dependence F17.200 Additional Codes Vital Signs *Quality* - CPT code: 32827 - 4-10 Minutes ([id number]) Assessment & Plan Assessment & Plan (1) Depression: Code(s): F32.A - Depression, unspecified Category: Medical Qualifiers: Active/Remission status: currently active Depression Type: major depressive disorder Major depression episode severity: severe Major depression recurrence: recurrent Psychotic features: with psychotic features Qualified Code(s): F33.3 - Major depressive disorder, recurrent, severe with psychotic symptoms Plan: Patient recently admitted to hospital for mental health reasons. he is now seeing a psychiatrist who is managing his medications. He still reports feeling depressed though not to the level of depressed mood he was previously. Has been having difficulty stabilizing his mood. (2) Polysubstance abuse: Comment: history of heroin and cocaine abuse, last used 2020 Code(s): F19.10 - Other psychoactive substance abuse, uncomplicated Category: Medical Plan: He reports he continues to be sober from street opiates. Continues on Sublocade injections through her local clinic (3) OCD (obsessive compulsive disorder): Comment: Psychiatry [facility] wellness group once a month, therapist Marco once a week (06/2023) Code(s): F42.9 - Obsessive-compulsive disorder, unspecified Category: Medical Qualifiers: Obsessive-compulsive disorder type: mixed obsessional thoughts and acts Qualified Code(s): F42.2 - Mixed obsessional thoughts and acts Plan: now has establish with psychiatry whom is making adjustments in mental health medications. On lithium currently and getting regular labs to monitor. (4) Hyperlipidemia: Code(s): E78.5 - Hyperlipidemia, unspecified Category: Medical Qualifiers: Hyperlipidemia type: mixed hyperlipidemia Qualified Code(s): E78.2 - Mixed hyperlipidemia Plan: Most recent lipid panel showing very elevated total cholesterol and LDL though he does not believe that this was fasting. He is on psychiatric medication that could causing his elevated lipids. He reports he has stopped using Olanzapine as he has been noticing weight gain. Will recheck fasting labs. (5) Generalized anxiety disorder: Code(s): F41.1 - Generalized anxiety disorder Category: Medical Plan: Patient's LILIANE-7 score positive for moderate to severe anxiety which has been existing condition for him. He will be following up with Psychiatry in near future. He has a made some changes in his medication since his psychiatric ad mission and will again will be following up with psychiatric provider (6) Tobacco dependence: Code(s): F17.200 - Nicotine dependence, unspecified, uncomplicated Category: Medical Plan: Patient does admit to smoking 10 cigarettes per day. Offered him nicotine replacement today though declines. No interest at this time to quit smoking. Orders: Orders Comprehensive [place]. Panel Fast Today E78.2 - Mixed hyperlipidemia Complete Blood Count no Diff Today E78.2 - Mixed hyperlipidemia Lipid Panel Today E78.2 - Mixed hyperlipidemia Medications: Discontinued olanzapine Discontinued Reason: Doctor's Order 10 mg (2 x 5 mg) PO BEDTIME 30 days 60 tabs 1RF
[2024-08-11 11:14] VITALS: BP 100/68; PULSE 81; TEMP 36.2; O2SAT 98; BMI 29.7
== END 2024-08-11 11:48 | disposition home or self-care (01) ==
LOC: HO.HMCH 11:05
PROVIDERS: PCP Physician Assistant; Visit Provider Physician Assistant
DX: F33.3 Major depressive disorder, recurrent, severe with psychotic symptoms (principal); F19.10 Other psychoactive substance abuse, uncomplicated; F42.2 Mixed obsessional thoughts and acts; E78.2 Mixed hyperlipidemia; F41.1 Generalized anxiety disorder; F17.200 Nicotine dependence, unspecified, uncomplicated

== ENCOUNTER → 2024-08-11 11:04 | Outpatient (BNVA) | payer OTHER, SELFPAY | PROVIDERS: PCP Physician Assistant; Visit Provider Physician Assistant | DX: F33.3 Major depressive disorder, recurrent, severe with psychotic symptoms (principal); F19.10 Other psychoactive substance abuse, uncomplicated; F42.2 Mixed obsessional thoughts and acts; E78.2 Mixed hyperlipidemia; F41.1 Generalized anxiety disorder; F17.200 Nicotine dependence, unspecified, uncomplicated; Z71.6 Tobacco abuse counseling | CPT/HCPCS: 99212 ==

== ENCOUNTER 2024-09-01 13:58 | Outpatient (AMB) | payer OTHER, SELFPAY ==
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
== END 2024-09-01 14:58 | disposition home or self-care (01) ==
LOC: HO.HOP 13:58
PROVIDERS: PCP Physician Assistant; Visit Provider Clinical Nurse Specialist Psychiatric/Mental Health
DX: F33.2 Major depressive disorder, recurrent severe without psychotic features (principal); F42.2 Mixed obsessional thoughts and acts
CPT/HCPCS: 99214

== ENCOUNTER → 2024-09-01 13:58 | Outpatient (BNVA) | payer OTHER, SELFPAY | PROVIDERS: PCP Physician Assistant; Visit Provider Clinical Nurse Specialist Psychiatric/Mental Health | DX: F42.2 Mixed obsessional thoughts and acts (principal); F33.2 Major depressive disorder, recurrent severe without psychotic features; Z71.89 Other specified counseling | CPT/HCPCS: 99212 ==

== ENCOUNTER → 2024-09-06 15:14 | Outpatient (BNV) | payer OTHER, SELFPAY | PROVIDERS: Visit Provider Clinical Nurse Specialist Psychiatric/Mental Health | DX: F33.2 Major depressive disorder, recurrent severe without psychotic features (principal) | CPT/HCPCS: 90791 ==

== ENCOUNTER 2024-10-06 14:14 | Outpatient (AMB) | payer OTHER, SELFPAY ==
--- NOTE | 2024-10-06 14:22 | A.OFFPC_ITS ---
Vital Signs 10/06/24 14:26 Height 5 ft 6 in Weight 162 lb 2 oz BMI 26.2 BP 116/82 Blood Pressure Location Lt brachial Position Sitting Pulse 107 H Pulse Source Pulse Oximeter Temp 97.3 F Temp Source Temporal Artery Scan Pulse Oximetry (%) 99 Oxygen Delivery Method Room Air Intake Visit Reasons: f/u HLD- mental health Coordinator Of Health Services Required: No Accompanied by: Self / Same As Patient Allergies codeine Allergy (Severe, Verified 10/06/24 14:27) Stomach Upset Medication List - Last Reconciled 10/06/24 by Antonio Moreno PA-C buprenorphine ER (Sublocade) 100 mg subcut Q28D clomipramine 100 mg (2 x 50 mg) PO BEDTIME 30 days clomipramine 75 mg PO BID 30 days diazepam 3 mg (1.5 x 2 mg) PO TID 14 days docusate sodium 100 mg PO BID 30 days magnesium glycinate 100 mg PO .bedtime 30 days naloxone 4 mg/actuation (Narcan) 4 mg intranasal Q2M PRN polyethylene glycol 3350 17 grams PO DAILY PRN 30 days Tobacco use date assessed: 08/11/24 Dental Screening Dental Screen Date: 07/14/24 HPI f/u HLD- mental health HPI Details Patient is a 39-year-old male here today for Patient has a past medical history significant for OCD, substance use disorder, history of hepatitis-C, major depression disorder. .. Mood disorder/ Depression : Has discontinued many of his mental health medications as he has felt they have not been effective. Continues on clomipramine and diazepam. Reports he still feels depressed though not as depressed as he was a few months ago. He is on a waiting list to do T MS therapy. Also on a waiting list to get a dedicated OCD mental health therapist to do cognitive behavioral therapy. Since stopping his antipsychotic medication he has lost a lot of weight, has now been following a low carb diet. .. Opiate use disorder: Has been sober for few months now per patient Continues to stay sober from street drugs with the use of buprenorphine. .. TObaCcO uSE disorder: he does report smoking about 10 rolled cigarettes per day. Not interested in quitting at this time. .. Hyperlipidemia: Most recent lipid panel showing very elevated total cholesterol and LDL which could be related to his psychiatric medication. [facility] Medical History Hospital discharge follow-up Encounter for lithium monitoring Overweight (BMI 25.0-29.9) History of hepatitis C Testicular cancer Polysubstance abuse Depression Surgical History History of orchiectomy Hx of cholecystectomy Family History Father Diabetes Mother No problems noted. Other Substance use disorder Social History Household Members: Other Household Members Other:: Mother Housing: House Do you presently have visiting nurse or other home services: No Alcohol intake: current Alcohol intake frequency: a few times a week Alcohol type: beer and hard liquor Comment: once Q 2 weeks 3 drinks Patient Tobacco Use Status: Current everyday Tobacco user Tobacco use type: Cigarette Cigarette Packs Per Day: 0.5 Cigarettes Per Day: 10 Years Smoked: roll - 8 aday - e-Cigarette/Vaping Use: Never Used Second Hand Smoke Exposure: Yes Substance Use Type: Crack/Cocaine and Caffiene service: No Current occupational status: employed Current occupation: [employer] Sexual orientation: Straight/Heterosexual Cognitive needs: No Hearing needs: No Vision needs: No Questionnaire PHQ-9 Over the last 2 weeks, how often have you been bothered by any of the following problems? 1. Little interest or pleasure in doing things: nearly every day 2. Feeling down, depressed, or hopeless: nearly every day 3. Trouble falling or staying asleep, or sleeping too much: nearly every day 4. Feeling tired or having little energy: nearly every day 5. Poor appetite or overeating: not at all 6. Feeling bad about yourself - or that you are a failure or have let yourself or your family down: nearly every day 7. Trouble concentrating on things, such as reading the newspaper or watching television: more than half the days 8. Moving or speaking so slowly that other people could have noticed. Or the opposite - being so fidgety or restless that you have been moving around a lot more than usual: nearly every day 9. Thoughts that you would be better off or of hurting yourself in some way: nearly every day Total score: 23 Depression Screening Interpretation: Positive Depression Screening Follow-up: Existing condition Depression Screening Done: Yes 40965 - PHQ-9 Billing: Yes Source: Developed by Drs. Shayan Dover, Anum Ojeda, Chidi Jett and colleagues, with an educational mian from [employer]. Thrive Questionnaire Date Thrive assessed: 10/06/24 I am a: Patient What is your living situation today?: I have a steady place to live Within the past 12 months, did the food you bought not last and you didn't have the money to get more?: Never true Within the past 12 months, did you worry whether your food would run out before you got money to buy more?: Never true Do you have trouble paying for medicines?: No Do you have trouble getting transportation to medical appointments?: No Do you have trouble paying your heating and electricity bill?: No Do you have trouble taking care of your child, family member or friend?: No Do you have trouble with day-to-day activities such as bathing, preparing meals, shopping, managing finances, etc.?: No Are you currently unemployed and looking for a job?: No Are you interested in more education?: Yes Please select the resources that you would like help with: None Currently or been in a relationship where the following occur: No concerns reported THRIVE Score: 0 AUDIT C Alcohol Use Questionnaire (AUDIT-C) 1. How often do you have a drink containing alcohol?: Never 3. How often do you have six or more drinks on one occasion?: Never Total Score: 0 LILIANE-7 AMB Questionnaire LILIANE-7 Date LILIANE - 7 assessed: 10/06/24 Feeling nervous, anxious, or on edge: 3 = Nearly every day Not being able to stop or control worryin = Nearly every day Worrying too much about different things: 3 = Nearly every day Trouble relaxin = Nearly every day Being so restless that it is hard to sit still: 3 = Nearly every day Becoming easily annoyed or irritable: 3 = Nearly every day Feeling afraid as if something awful might happen: 3 = Nearly every day Total LILIANE-7 score (0-4 normal; 5-9 mild; 10-14 moderate; 15-21 severe): 21 Source: Developed by Drs. Shayan Dover, Anum Ojeda, Chidi Jett and colleagues, with an educational mian from [employer]. LILIANE-7 Assessment Billing LILIANE-7 Assessment Tool: LILIANE-7 Assessment 11930 Review of Systems Const Denies headache(s) Eyes Denies loss of vision ENT Denies vertigo, Denies dizziness, Denies headache(s) and Denies sore throat Card Denies chest pain, Denies leg edema and Denies lightheadedness Resp Denies cough, Denies hemoptysis and Denies wheezing GI Denies abdominal pain, Denies melena, Denies constipation, Denies diarrhea and Denies vomiting Denies dysuria, Denies urinary frequency and Denies urinary urgency Musc Denies arthralgias, Denies joint swelling, Denies numbness and Denies tingling Neuro Denies Abnormal speech present, Denies behavioral changes, Denies vertigo, Denies dizziness, Denies headache(s), Denies loss of vision, Denies memory loss, Denies numbness and Denies tingling Psych Denies anxiety, Denies behavioral changes, Reports depression, Reports irritability, Denies memory loss and Denies panic attacks Audie/Lymph Denies easy bleeding and Denies easy bruising Aller/Immun Denies wheezing Physical exam (Primary Care) Vital Signs: Last Vital Signs Temp 97.3 F 10/06/24 14:26 Pulse 107 H 10/06/24 14:26 BP 116/82 10/06/24 14:26 Pulse Ox 99 10/06/24 14:26 Oxygen Delivery Method Room Air 10/06/24 14:26 BMI result Body Mass Index 26.2 Tobacco/Smoking Status: Tobacco use Status Tobacco use date assessed 08/11/24 10/06/24 14:25 Patient Tobacco Use Status Current everyday Tobacco 10/06/24 14:25 Tobacco use type Cigarette 10/06/24 14:25 e-Cigarette/Vaping Use Never Used 10/06/24 14:25 Are you ready to quit: No Tobacco cessation counseling provided: Yes Items discussed: Nicotine replacement Relapse Prevention: discussed the importance of a supportive environment, discussed negative mood or depression after quitting, weight gain after smoking is common and discussed dietary, exercise and/or lifestyle changes Number of minutes spent counselin CPT code: 88091 - 4-10 Minutes PHQ-9: PHQ-9 Score PHQ-9: Total score 23 10/06/24 14:25 Depression Screening Interpretation: Positive Depression Screening Follow-up: Existing condition Thrive Assessment: Date of Thrive Assessment Date Thrive assessed 10/06/24 10/06/24 14:25 Currently or been in a relationship where the following occur: No concerns rep orted Const General: healthy appearing, no acute distress, alert and awake Nutritional Appearance: well nourished Orientation/consciousness: oriented to person, oriented to place and oriented to time HENMT Ears: TM's normal bilaterally General nose exam: Normal nasal mucous membranes and turbinates present Eyes Conjunctivae: conjunctivae normal Sclerae: sclerae normal Pupils: Equal, round and reactive pupils present Neck Neck: Yes no lymphadenopathy and Yes no JVD Thyroid: Thyroid normal Carotids: no bruits Resp Effort & Inspection: normal respiratory effort and not tachypneic Auscultation: no crackles, no rales, no rhonchi and no wheezes Cardio Rate: regular rate Rhythm: regular rhythm Heart sounds: no murmurs and normal S1 and S2 GI Palpation (GI): Soft to palpation, nontender, no hepatomegaly and no spl enomegaly Auscultation: normal bowel sounds Skin General skin exam: no rashes or lesions noted and dry skin Neuro General: oriented to person, oriented to place and oriented to time Cranial nerves: Yes Equal, round and reactive pupils present Speech: No Abnormal speech present Gait exam (Neuro): Normal gait present Motor exam (neuro): no tremor noted Extrem Right upper extremity: full ROM Left upper extremity: full ROM Right lower extremity: full ROM; no edema Left lower extremity: full ROM; no edema Psych Mental Status: mental status grossly normal Speech and movement: Normal speech and movement present Affect: normal affect Attitude: cooperative Thought process: Normal thought process present Coding Level of Care Code Est Pt Level 4 (32627) Diagnoses Severe episode of recurrent major depressive disorder, with psychotic features F33.3 Depression Type: major depressive disorder Major depression recurrence: recurrent Active/Remission status: currently active Major depression episode severity: severe Psychotic features: with psychotic features Polysubstance abuse F19.10 Mixed obsessional thoughts and acts F42.2 Obsessive-compulsive disorder type: mixed obsessional thoughts and acts Mixed hyperlipidemia E78.2 Hyperlipidemia type: mixed hyperlipidemia Generalized anxiety disorder F41.1 Tobacco dependence F17.200 Additional Codes LILIANE-7 Assessment Billing - LILIANE-7 Assessment Tool: LILIANE-7 Assessment 78260 ([id number]) PHQ-9 - 16925 - PHQ-9 Billing: Yes ([id number]) Vital Signs *Quality* - CPT code: 66231 - 4-10 Minutes ([id number]) Assessment & Plan Assessment & Plan (1) Depression: Code(s): F32.A - Depression, unspecified Category: Medical Qualifiers: Depression Type: major depressive disorder Major depression recurrence: recurrent Active/Remission status: currently active Major depression episode severity: severe Psychotic features: with psychotic features Qualified Code(s): F33.3 - Major depressive disorder, recurrent, severe with psychotic symptoms Plan: Patient's PHQ-9 score positive for major depression which has been existing condition for as per HPI.. He is now seeing a psychiatrist who is managing his medications. He still reports feeling depressed though not to the level of depressed mood he was previously. He has stopped his Latuda, lithium , olanzapine and mirtazapine to which he feels was not effective ] (2) Polysubstance abuse: Comment: history of heroin and cocaine abuse, last used 2020 Code(s): F19.10 - Other psychoactive substance abuse, uncomplicated Category: Medical Plan: He reports he continues to be sober from street opiates. Continues on Sublocade injections through her local clinic (3) OCD (obsessive compulsive disorder): Comment: Psychiatry [facility] wellness group once a month, therapist Marco once a week (06/2023) Code(s): F42.9 - Obsessive-compulsive disorder, unspecified Category: Medical Qualifiers: Obsessive-compulsive disorder type: mixed obsessional thoughts and acts Qualified Code(s): F42.2 - Mixed obsessional thoughts and acts Plan: now has establish with psychiatry whom is making adjustments in mental health medications. Again as stopped many of his mental health medications as he felt though not effective. He is waiting on a specialist therapy for his OCD. (4) Hyperlipidemia: Code(s): E78.5 - Hyperlipidemia, unspecified Category: Medical Qualifiers: Hyperlipidemia type: mixed hyperlipidemia Qualified Code(s): E78.2 - Mixed hyperlipidemia Plan: Will recheck his fasting lipid panel since he has lost significant amount of weight since last office visit particularly due to stopping his antipsychotic medication. Will recheck fasting labs. (5) Generalized anxiety disorder: Code(s): F41.1 - Generalized anxiety disorder Category: Medical Plan: Patient's LILIANE-7 score positive for moderate to severe anxiety which has been existing condition for him. He will be following up with Psychiatry in near future. He continues on diazepam which has helpful for anxiety. (6) Tobacco dependence: Code(s): F17.200 - Nicotine dependence, unspecified, uncomplicated Category: Medical Plan: Patient does admit to smoking 10 cigarettes per day. Offered him nicotine replacement today though declines. No interest at this time to quit smoking.
[2024-10-06 14:26] VITALS: BP 116/82; PULSE 107; TEMP 36.3; O2SAT 99; BMI 26.2
== END 2024-10-06 14:40 | disposition home or self-care (01) ==
LOC: HO.HMCH 14:15
PROVIDERS: PCP Physician Assistant; Visit Provider Physician Assistant
DX: F33.3 Major depressive disorder, recurrent, severe with psychotic symptoms (principal); F19.10 Other psychoactive substance abuse, uncomplicated; F42.2 Mixed obsessional thoughts and acts; E78.2 Mixed hyperlipidemia; F41.1 Generalized anxiety disorder; F17.200 Nicotine dependence, unspecified, uncomplicated

== ENCOUNTER → 2024-10-06 14:14 | Outpatient (BNVA) | payer OTHER, SELFPAY | PROVIDERS: PCP Physician Assistant; Visit Provider Physician Assistant | DX: F33.3 Major depressive disorder, recurrent, severe with psychotic symptoms (principal); F19.10 Other psychoactive substance abuse, uncomplicated; F42.2 Mixed obsessional thoughts and acts; E78.2 Mixed hyperlipidemia; F41.1 Generalized anxiety disorder; F17.210 Nicotine dependence, cigarettes, uncomplicated | CPT/HCPCS: 96127; 99212 ==

== ENCOUNTER 2024-11-07 09:15 | Outpatient (AMB) | payer OTHER, SELFPAY ==
[2024-11-07 09:32] VITALS: BP 120/80; PULSE 54; TEMP 36.4; O2SAT 99; BMI 25.7
--- NOTE | 2024-11-07 09:32 | MHC.PC.OV ---
Vital Signs 11/07/24 09:32 Height 5 ft 6 in Weight 159 lb BMI 25.7 BP 120/80 Blood Pressure Location Lt brachial Position Sitting Pulse 54 Pulse Source Pulse Oximeter Temp 97.5 F Temp Source Temporal Artery Scan Pulse Oximetry (%) 99 Oxygen Delivery Method Room Air Intake Visit Reasons: upper back pain Halal Butcher Required: No Accompanied by: Self / Same As Patient Allergies codeine Allergy (Severe, Verified 11/07/24 10:06) Stomach Upset Medication List - Last Reconciled 11/07/24 by Antonio Moreno PA-C No Known Home Meds Tobacco use date assessed: 11/07/24 Dental Screening Dental Screen Date: 11/07/24 Did you have a dental visit in the last 12 months?: Yes Did you have a dental problem in the last 6 months where you did not have access to dental care?: No Was dental information given to patient?: Patient has dentist HPI upper back pain HPI Details Patient is a 39-year-old male here today for problem visit. Approximately a year and a half ago, he experienced significant pain in the right shoulder region, specifically where the scapula meets the clavicle, following an extended period of [place]. Imaging studies, including an MRI, eventually led to a diagnosis of Type II SLAP tear and a tear in the right rotator cuff. 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 He reports that the pain often becomes severe by midday, causing nausea and emotional difficulty, to the extent that he feels distressed to the point of tears. Previous experiences with physical therapy seemed to offer slight symptom improvement, but he is unclear about the effectiveness of the exercises. His efforts with analgesics and THC/CHB products have provided limited relief. The patient currently does not use any prescription medications for his shoulder issues and notes that cyuf-blu-ctsiuks naproxen and Tylenol have been largely ineffective. There is a particular impact on his periscapular and clavicular regions, although the pain can extend down the arm. He denies involvement of muscle relaxants or additional anti-inflammatory drugs beyond those already mentioned [facility] Medical History Hospital discharge follow-up Encounter for lithium monitoring Overweight (BMI 25.0-29.9) History of hepatitis C Testicular cancer Polysubstance abuse Depression Surgical History History of orchiectomy Hx of cholecystectomy Family History Father Diabetes Mother No problems noted. Other Substance use disorder Social History Household Members: Other Household Members Other:: Mother Housing: House Do you presently have visiting nurse or other home services: No Alcohol intake: current Alcohol intake frequency: a few times a week Alcohol type: beer and hard liquor Comment: once Q 2 weeks 3 drinks Patient Tobacco Use Status: Current everyday Tobacco user Tobacco use type: Cigarette Cigarette Packs Per Day: 0.5 Cigarettes Per Day: 10 Years Smoked: roll - 8 aday - e-Cigarette/Vaping Use: Never Used Second Hand Smoke Exposure: Yes Substance Use Type: Crack/Cocaine and Caffiene service: No Current occupational status: employed Current occupation: [employer] Sexual orientation: Straight/Heterosexual Cognitive needs: No Hearing needs: No Vision needs: No Questionnaire PHQ-9 Over the last 2 weeks, how often have you been bothered by any of the following problems? 1. Little interest or pleasure in doing things: nearly every day 2. Feeling down, depressed, or hopeless: nearly every day 3. Trouble falling or staying asleep, or sleeping too much: nearly every day 4. Feeling tired or having little energy: nearly every day 5. Poor appetite or overeating: not at all 6. Feeling bad about yourself - or that you are a failure or have let yourself or your family down: nearly every day 7. Trouble concentrating on things, such as reading the newspaper or watching television: more than half the days 8. Moving or speaking so slowly that other people could have noticed. Or the opposite - being so fidgety or restless that you have been moving around a lot more than usual: nearly every day 9. Thoughts that you would be better off or of hurting yourself in some way: nearly every day Total score: 23 Depression Screening Interpretation: Positive Depression Screening Follow-up: Existing condition Depression Screening Done: Yes 42559 - PHQ-9 Billing: Yes Source: Developed by Drs. Shayan Dover, Chidi Gonzalez and colleagues, with an educational mian from [employer]. Thrive Questionnaire Date Thrive assessed: 11/07/24 I am a: Patient What is your living situation today?: I have a steady place to live Within the past 12 months, did the food you bought not last and you didn't have the money to get more?: Never true Within the past 12 months, did you worry whether your food would run out before you got money to buy more?: Never true Do you have trouble paying for medicines?: No Do you have trouble getting transportation to medical appointments?: No Do you have trouble paying your heating and electricity bill?: No Do you have trouble taking care of your child, family member or friend?: No Do you have trouble with day-to-day activities such as bathing, preparing meals, shopping, managing finances, etc.?: No Are you currently unemployed and looking for a job?: No Are you interested in more education?: Yes Please select the resources that you would like help with: None Currently or been in a relationship where the following occur: No concerns reported THRIVE Score: 0 AUDIT C Alcohol Use Questionnaire (AUDIT-C) 1. How often do you have a drink containing alcohol?: Never 3. How often do you have six or more drinks on one occasion?: Never Total Score: 0 LILIANE-7 AMB Questionnaire LILIANE-7 Date LILIANE - 7 assessed: 11/07/24 Feeling nervous, anxious, or on edge: 3 = Nearly every day Not being able to stop or control worryin = Nearly every day Worrying too much about different things: 3 = Nearly every day Trouble relaxin = Nearly every day Being so restless that it is hard to sit still: 3 = Nearly every day Becoming easily annoyed or irritable: 3 = Nearly every day Feeling afraid as if something awful might happen: 3 = Nearly every day Total LILIANE-7 score (0-4 normal; 5-9 mild; 10-14 moderate; 15-21 severe): 21 Source: Developed by Anum Harp Kurt Kroenke and colleagues, with an educational mian from [employer]. LILIANE-7 Assessment Billing LILIANE-7 Assessment Tool: LILIANE-7 Assessment 34106 Review of Systems Const Denies headache(s) Eyes Denies loss of vision ENT Denies vertigo, Denies dizziness, Denies headache(s) and Denies sore throat Card Denies chest pain, Denies leg edema and Denies lightheadedness Resp Denies cough, Denies hemoptysis and Denies wheezing GI Denies abdominal pain, Denies melena, Denies constipation, Denies diarrhea and Denies vomiting Denies dysuria, Denies urinary frequency and Denies urinary urgency Musc Denies arthralgias, Denies joint swelling, Denies numbness and Denies tingling Neuro Denies Abnormal speech present, Denies behavioral changes, Denies vertigo, Denies dizziness, Denies headache(s), Denies loss of vision, Denies memory loss, Denies numbness and Denies tingling Psych Denies anxiety, Denies behavioral changes, Denies depression, Denies memory loss and Denies panic attacks Audie/Lymph Denies easy bleeding and Denies easy bruising Aller/Immun Denies wheezing Physical exam (Primary Care) Vital Signs: Last Vital Signs Temp 97.5 F 11/07/24 09:32 Pulse 54 11/07/24 09:32 BP 120/80 11/07/24 09:32 Pulse Ox 99 11/07/24 09:32 Oxygen Delivery Method Room Air 11/07/24 09:32 BMI result Body Mass Index 25.7 Tobacco/Smoking Status: Tobacco use Status Tobacco use date assessed 11/07/24 11/07/24 09:36 Patient Tobacco Use Status Current everyday Tobacco 11/07/24 09:36 Tobacco use type Cigarette 11/07/24 09:36 e-Cigarette/Vaping Use Never Used 11/07/24 09:36 PHQ-9: PHQ-9 Score PHQ-9: Total score 23 11/07/24 10:09 Depression Screening Interpretation: Positive Depression Screening Follow-up: Existing condition Thrive Assessment: Date of Thrive Assessment Date Thrive assessed 11/07/24 11/07/24 09:36 Currently or been in a relationship where the following occur: No concerns reported Const General: healthy appearing, no acute distress, alert and awake Nutritional Appearance: well nourished Orientation/consciousness: oriented to person, oriented to place and oriented to time HENMT Ears: TM's normal bilaterally General nose exam: Normal nasal mucous membranes and turbinates present Eyes Conjunctivae: conjunctivae normal Sclerae: sclerae normal Pupils: Equal, round and reactive pupils present Neck Neck: Yes no lymphadenopathy and Yes no JVD Thyroid: Thyroid normal Carotids: no bruits Resp Effort & Inspection: normal respiratory effort and not tachypneic Auscultation: no crackles, no rales, no rhonchi and no wheezes Cardio Rate: regular rate Rhythm: regular rhythm Heart sounds: no murmurs and normal S1 and S2 GI Palpation (GI): Soft to palpation, nontender, no hepatomegaly and no splenomegaly Auscultation: normal bowel sounds Skin General skin exam: no rashes or lesions noted and dry skin Neuro General: oriented to person, oriented to place and oriented to time Cranial nerves: Yes Equal, round and reactive pupils present Speech: No Abnormal speech present Gait exam (Neuro): Normal gait present Motor exam (neuro): no tremor noted Extrem Right upper extremity: full ROM Left upper extremity: full ROM Right lower extremity: full ROM; no edema Left lower extremity: full ROM; no edema Psych Mental Status: mental status grossly normal Speech and movement: Normal speech and movement present Affect: normal affect Attitude: cooperative Thought process: Normal thought process present Coding Level of Care Code Est Pt Level 3 (67828) Diagnoses Type 2 superior labrum extending from anterior to posterior (SLAP) lesion of right shoulder, subsequent encounter S43.431D Encounter type: subsequent encounter Additional Codes LILIANE-7 Assessment Billing - LILIANE-7 Assessment Tool: LILIANE-7 Assessment 98675 ([id number]) PHQ-9 - 23870 - PHQ-9 Billing: Yes ([id number]) Assessment & Plan Assessment & Plan (1) Type 2 superior labrum extending from anterior to posterior (SLAP) lesion of right shoulder: Code(s): S43.431A - Superior glenoid labrum lesion of right shoulder, initial encounter Category: Medical Qualifiers: Encounter type: subsequent encounter Qualified Code(s): S43.431D - Superior glenoid labrum lesion of right shoulder, subsequent encounter Plan: Referral to record center specialist for evaluation and possible steroid injection. 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 Prescription of meloxicam and cyclobenzaprine to manage symptoms. Avoiding naproxen advised. Follow-up with orthopedics to track recovery, and consider additional MRI if indicated. Orders: Orders PT Evaluation and Treatment 11/07/24 S43.431D - Superior glenoid labrum lesion of right shoulder, subsequent encounter Referrals Pain Management Referral S43.431D - Superior glenoid labrum lesion of right shoulder, subsequent encounter Orthopedics Referral S43.431D - Superior glenoid labrum lesion of right shoulder, subsequent encounter Medications: New cyclobenzaprine 10 mg PO BID 28 tabs 0RF 14 days S43.431D - Superior glenoid labrum lesion of right shoulder, subsequent encounter meloxicam 15 mg PO DAILY 14 tabs 0RF 14 days S43.431D - Superior glenoid labrum lesion of right shoulder, subsequent encounter
== END 2024-11-07 10:25 | disposition home or self-care (01) ==
LOC: HO.HMCH 09:16
PROVIDERS: PCP Physician Assistant; Visit Provider Physician Assistant
DX: S43.431D Superior glenoid labrum lesion of right shoulder, subsequent encounter (principal)

== ENCOUNTER → 2024-11-07 09:15 | Outpatient (BNVA) | payer OTHER, SELFPAY | PROVIDERS: PCP Physician Assistant; Visit Provider Physician Assistant | DX: S43.431D Superior glenoid labrum lesion of right shoulder, subsequent encounter (principal); Z13.31 Encounter for screening for depression; Z13.30 Encounter for screening examination for mental health and behavioral disorders, unspecified | CPT/HCPCS: 96127; 99212 ==

== ENCOUNTER 2024-11-30 13:42 | Outpatient (AMB) | payer OTHER, SELFPAY ==
[2024-11-30 13:46] VITALS: BP 129/89; PULSE 68; RESP 18; O2SAT 100; BMI 25.7
--- NOTE | 2024-11-30 13:46 | MHC.OFFVIS ---
Vital Signs 11/30/24 13:46 Height 5 ft 6 in Weight 159 lb BMI 25.7 BP 129/89 Blood Pressure Location Lt brachial Position Sitting Respiration 18 Pulse 68 Pulse Source Pulse Oximeter Pulse Oximetry (%) 100 Oxygen Delivery Method Room Air Intake Visit Reasons: Superior glenoid labrum lesion of right shoulder Veneer Stock Layer Required: No Allergies codeine Allergy (Severe, Verified 11/30/24 13:47) Stomach Upset HPI Comments Details: Hira Is in my office today after 1 year of absence. He reported that diagnostic intra-articular shoulder injection into the right shoulder alleviated his pain completely 100% for 9 months. He reported good activities of daily living and good range of motion of the right shoulder. He is here to request about 2nd injection into the shoulder now with steroids. I will schedule him for this procedure with steroids as soon as possible. He is scheduled also for appointment with Dr. Oates for evaluation of his SLAP 2 labral tear. Prior: very pleasant 38 years old gentleman who presents in my office with complains on pain in the right posterior shoulder blade with radiation of the pain into the right upper extremity. He reports no pain in the neck. He reports that pain started in November 2022 when he slept [place] the [place] in [place], he wanted to become a monk but later on reconsider that. He reports the best relief from his pain he receives when he puts the tennis ball against the area between his thoracic spine and right shoulder blade and rotate this ball against the wall. He had x-ray of the shoulder area and CT scan of the shoulder area which is not available for me those were done in [facility]. He had physical therapy for his pain he has not sure whether he received benefit from this he received massage therapy with minimal improvement and he tried acupuncture without any improvement. He never received any injections. Past medical history significant for fatigue obsessive-compulsive disorder history of alcohol and illicit drug problems history of hepatitis-C treated with interferon and history of digestive problems. 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 Other Substance use disorder Social History Household Members: Other Household Members Other:: Mother Housing: House Do you presently have visiting nurse or other home services: No Alcohol intake: current Alcohol intake frequency: a few times a week Alcohol type: beer and hard liquor Comment: once Q 2 weeks 3 drinks Patient Tobacco Use Status: Current everyday Tobacco user Tobacco use type: Cigarette Cigarette Packs Per Day: 0.5 Cigarettes Per Day: 10 Years Smoked: roll - 8 aday - e-Cigarette/Vaping Use: Never Used Second Hand Smoke Exposure: Yes Substance Use Type: Crack/Cocaine and Caffiene service: No Current occupational status: employed Current occupation: [employer] Sexual orientation: Straight/Heterosexual Cognitive needs: No Hearing needs: No Vision needs: No Review of Systems Const All systems reviewed & are unremarkable except as noted in HPI and below Physical Exam Vital Signs: Last Vital Signs Pulse 68 11/30/24 13:46 Resp 18 11/30/24 13:46 BP 129/89 11/30/24 13:46 Pulse Ox 100 11/30/24 13:46 Oxygen Delivery Method Room Air 11/30/24 13:46 BMI result Body Mass Index 25.7 Const General: no acute distress, alert and awake Orientation/consciousness: patient oriented x3 HEENT Head: Yes normocephalic and Yes atraumatic Eyes EOM: EOMs intact bilaterally Neck Other: Full range of motion of the cervical spine. Flexing head forward and flexing had backwards do not affect the pain in the shoulder or in the arm. Rotating head side ways or tilting had sideways also does not affect the pain. Lhermitte test is negative. Spurling test is negative. Axial extension is negative. No tenderness on palpation in paraspinal spinal region cervical spine. Tenderness on palpation in the projection of right rhomboid muscle more of the major rhomboid and less on the minor rhomboid side. Valsalva maneuver is negative for pain increase. Neck: Yes full ROM Resp Effort & Inspection: normal respiratory effort and able to speak in complete sentences Cardio Jugular venous distension: no JVD Skin General skin exam: turgor normal Rashes: no rashes Neuro General: patient oriented x3 Extrem Other: Full ROM 4+/5 EC + [place]'s Psych Appearance: grossly normal Affect: normal affect Attitude: cooperative Results Reviewed Results Reviewed: MRI of the shoulder was performed following the intra-articular administration of a dilute gadolinium-containing solution (arthrogram) on a high-field scanner. Additional images of the shoulder were obtained with the shoulder in abduction and external rotation (ABER). FINDINGS: ROTATOR CUFF: Intact. No muscle atrophy or fatty infiltration. BICEPS: Normal. CORACOACROMIAL ARCH: The undersurface of the acromion is curved with no subacromial spur. Mild acromioclavicular osteoarthritis. LABRUM/CAPSULE: There is a longitudinal labral tear propagating from the anterosuperior 1 o'clock position through the posterosuperior 10 o'clock position without appreciable involvement of the biceps tendon, most consistent with a type II SLAP tear. Contrast material and fluid within the joint capsule anteriorly is favored to be injection related. No discrete capsular tear. No appreciable tear of the anterior band inferior glenohumeral ligament as seen on ABER images. GLENOHUMERAL JOINT/MARROW: No fracture or malalignment. There is cortical irregularity and minimal subcortical edema/cystic change at the humeral head posterosuperiorly near the greater tuberosity. Articular cartilage appears normal. Humeral head is appropriately situated at the glenoid. No loose bodies. MR/MR shoulder RT w con IMPRESSION: 1. Type II SLAP tear. No appreciable capsular tear, though the injection-related contrast material in the anterior capsule slightly limits assessment in this region. 2. Mild acromioclavicular osteoarthritis. 3. Intact rotator cuff. Assessment & Plan Assessment & Plan (1) Internal derangement of right shoulder: Code(s): M24.811 - Other specific joint derangements of right shoulder, not elsewhere classified Category: Medical (2) Myofascial pain syndrome: Code(s): M79.18 - Myalgia, other site Category: Medical (3) Degenerative tear of glenoid labrum of right shoulder: Code(s): M24.111 - Other articular cartilage disorders, right shoulder Category: Medical (4) Right shoulder pain: Code(s): M25.511 - Pain in right shoulder Category: Medical Plan After discussion today with Hira we decided to repeat shoulder injection this time with steroids. Diagnostic injection without steroids resulted in 9 months of pain relief. MRI demonstrated labral tear. He is scheduled for appointment with Dr. Oates to discuss the situation with his shoulder. I will schedule him for the procedure soon as possible. Coding Level of Care Code Est Pt Level 3 (22953) Diagnoses Internal derangement of right shoulder M24.811 Myofascial pain syndrome M79.18 Degenerative tear of glenoid labrum of right shoulder M24.111 Right shoulder pain M25.511
== END 2024-11-30 13:57 | disposition home or self-care (01) ==
LOC: HO.PMC 13:43
PROVIDERS: PCP Physician Assistant; Referring Provider Physician Assistant; Visit Provider Anesthesiology
DX: M24.811 Other specific joint derangements of right shoulder, not elsewhere classified (principal); M79.18 Myalgia, other site; M24.111 Other articular cartilage disorders, right shoulder; M25.511 Pain in right shoulder
CPT/HCPCS: 99213

== ENCOUNTER → 2024-11-30 13:42 | Outpatient (BNVA) | payer OTHER, SELFPAY | PROVIDERS: PCP Physician Assistant; Referring Provider Physician Assistant; Visit Provider Anesthesiology | DX: M24.811 Other specific joint derangements of right shoulder, not elsewhere classified (principal); M79.18 Myalgia, other site; M24.111 Other articular cartilage disorders, right shoulder; M25.511 Pain in right shoulder; E66.3 Overweight; Z68.25 Body mass index [BMI] 25.0-25.9, adult; Z86.19 Personal history of other infectious and parasitic diseases | CPT/HCPCS: 99212 ==

== ENCOUNTER 2024-12-29 12:57 | Outpatient (AMB) | payer OTHER, SELFPAY ==
--- OUTSIDE RECORDS SUMMARY | 2024-12-29 13:05 | XMS_ITS | Clinical Summary ---
Author Organization [facility] Address [address] [place] [id number] Phone Care Team Providers Care Eclectic Doctor Name Role Phone Zarina Villalobos Primary Care Prov ider Larissa Govea MD Unavailable [phone] Allergies Active Allergy Reactions Criticality Noted Date Comments Codeine High 04/11/2020 Medications clomiPRAMINE (ANAFRANIL) 75 MG capsuleIndicatio ns:3 pills a day Take 75 mg by mouth every morning. Indications : 3 pills a day Active Active Problems Patient Care Coordination No te Formatting of this note migh t be different from the original. HEIGHT 166.6cm NO SHOES 04/11/2020 No additional problems on file Immunizations Immunization Administration Dates Next Due COVID-19 (Pre-03/23) Cari Vaccine, [id number], P F 09/04/2020 Hepatitis B 12/16/2010 Hepatitis B, unspecified formulation 11/16/2010 Influenza Quadrivalent Preservative Free IM 07/03 Influenza Trivalent w/ Preservative IM 2,08/08/2010 Pneumococcal polysaccharide PPSV23 03/03/2012 Tdap 03/03/2012 Social History Tobacco Use Types Packs/Day Years Used Date Smoking Tobacco: Every Day Cigarettes Smokeless Tobacco: Never Comments:Hand Rolled Education Answer Date Recorded Are you interested in more education? Not on marvin e 10/01/2022 Are you concerned about learning? Not on file 10/01/2022 No 10/01/2022 No 10/01/2022 Digital Access Answer Date Recorded No 10/26/2022 No 10/26/2022 Reliable internet access at home? Not on file 10/26/2022 Device with a working camera? Not on file Sex and Gender Information Value Date Recorded Sex Assigned at Not on file Legal Sex Male 5:26 PM EST Gender Identity Not on file Sexual Orientation Not on file Last Filed Vital Signs Vital Sign Reading Time Taken Comments Blood Pressure 151/104 04/11/2020 12:52 PM EST 131/89 right arm Pulse 87 04/11/2020 12:52 PM EST Temperature 36.2 C (97.2 F) 04/11/2020 12:48 PM EST Respiratory Rate - - Oxygen Saturation 98% 04/11/2020 12: 52 PM EST Inhaled Oxygen Concentration - - Weight 74.2 kg (163 lb 8 oz) 04/11/2020 12:52 PM EST NO SHOES Height 166.6 cm (5' 5.59 ) 04/11/2020 1 2:52 PM EST Body Mass Index 26.72 04/11/2020 12:52 PM EST Plan of Treatment Health Maintenance Due Date Last Done Comments LIPID PANEL 1984 DEPRESSION SCREENING 1996 SMOKING Hx and SMOKELESS TOB ACCO SCREENING 1997 HEPATITIS C SCREENING 2002 HIV ONE-TIME SCREENING (18-6 5 YEARS) 2002 PNEUMOCOCCAL VACCINES (0-49 years) (2 of 2 - PCV) 03/03/2013 03/03/2012 Adult Td,Tdap Booster 03/03/2022 03/03/2012 COVID-19 VACCINE (2 - 4-2 5 season) 2024 09/04/2020 HEPATITIS A VACCINES Aged Out No long er eligible based on patient's age to complete this topic HIB VACCINES Aged Out No longer eligi ble based on patient's age to complete this topic MENINGOCOCCAL VACCINES (ACWY) Aged Out No longer eligible based on patient's age to complete this topic MENINGOCOCCAL VACCINES (B) Aged Out N o longer eligible based on patient's age to complete this topic Medical Devices Not on file Care Teams Eclectic Doctor Relationship Specialty Start Date End Date Zarina Villalobos PA [address] [place] [id number] [email or web address] PCP - General 03/22/20 Larissa Govea MD [address] [place], [place] [id number] [email or web address] Primary Oncologist Medical Oncology 03/22/20 Additional Source Comments The information contained in this document represents components of the legal health record. It is not the complete legal health record.[facility]
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
== END 2024-12-29 13:35 | disposition home or self-care (01) ==
LOC: HO.HOP 12:57
PROVIDERS: PCP Physician Assistant; Visit Provider Clinical Nurse Specialist Psychiatric/Mental Health
DX: F42.2 Mixed obsessional thoughts and acts (principal); F41.1 Generalized anxiety disorder; F33.2 Major depressive disorder, recurrent severe without psychotic features
CPT/HCPCS: 90792

== ENCOUNTER → 2024-12-29 12:57 | Outpatient (BNVA) | payer OTHER, SELFPAY | PROVIDERS: PCP Physician Assistant; Visit Provider Clinical Nurse Specialist Psychiatric/Mental Health | DX: F42.9 Obsessive-compulsive disorder, unspecified (principal); F41.1 Generalized anxiety disorder; F33.2 Major depressive disorder, recurrent severe without psychotic features | CPT/HCPCS: 90792 ==

== ENCOUNTER 2025-01-18 14:46 | Outpatient (AMB) | payer OTHER, SELFPAY ==
--- NOTE | 2025-01-18 14:51 | MHC.PC.OV ---
Vital Signs 01/18/25 14:52 Height 5 ft 6 in Weight 150 lb 4 oz BMI 24.2 BP 130/60 Blood Pressure Location Lt brachial Position Sitting Pulse 69 Pulse Source Pulse Oximeter Temp 97.3 F Temp Source Temporal Artery Scan Pulse Oximetry (%) 97 Oxygen Delivery Method Room Air Intake Visit Reasons: f/u HLD/ mental health Intake Note: Patient is here to follow up on HLD, Mental Health. Differential Specialist Required: No Director Of Consumer Affairs: Not Required per policy Accompanied by: Self / Same As Patient Allergies codeine Allergy (Severe, Verified 01/18/25 15:04) Stomach Upset Medication List - Last Reconciled 01/18/25 by Antonio Moreno PA-C cyclobenzaprine 10 mg PO BID 14 days diazepam (Valium) 2 mg PO BID PRN 15 days fluoxetine (Prozac) 20 mg PO DAILY meloxicam 15 mg PO DAILY 14 days Tobacco use date assessed: 01/18/25 Dental Screening Dental Screen Date: 11/07/24 HPI f/u HLD/ mental health HPI Details Patient is a 39-year-old male here today for follow-up visit Patient has a past medical history significant for OCD, substance use disorder, history of hepatitis-C, major depression disorder. Concern--> The patient experiences allergic reactions to pets, specifically dogs, causing significant itchiness. He inquired about specific allergy medications and was advised on options including Zyrtec and hydroxyzine, the latter of which he will try first. .. Mood disorder/ Depression : Continues to follow psychiatrist. Has discontinued many of his mental health medications as he has felt they have not been effective. Has been able to lose weight since discontinuing a lot of his mental health medications. .. OCD- has started on SSRI therapy for his OCD .. Opiate use disorder: Has been sober from street opiates and cocaine for about 8 months now. He still drinks alcohol .. TObaCcO uSE disorder: he does report smoking about 10 rolled cigarettes per day. Not interested in quitting at this time. .. Hyperlipidemia: Most recent lipid panel showing very elevated total cholesterol and LDL which could be related to his psychiatric medication. [facility] Medical History Hospital discharge follow-up Encounter for lithium monitoring Overweight (BMI 25.0-29.9) History of hepatitis C Testicular cancer Polysubstance abuse Depression Surgical History History of orchiectomy Hx of cholecystectomy Family History Father Diabetes Mother No problems noted. Other Substance use disorder Social History Household Members: Other Household Members Other:: Mother Housing: House Do you presently have visiting nurse or other home services: No Alcohol intake: current Alcohol intake frequency: a few times a week Alcohol type: beer and hard liquor Comment: once Q 2 weeks 3 drinks Patient Tobacco Use Status: Current everyday Tobacco user Tobacco use type: Cigarette Cigarette Packs Per Day: 0.5 Cigarettes Per Day: 7 Years Smoked: roll - 8 aday - e-Cigarette/Vaping Use: Never Used Second Hand Smoke Exposure: Yes Substance Use Type: Crack/Cocaine and Caffiene service: No Current occupational status: employed Current occupation: [employer] Sexual orientation: Straight/Heterosexual Cognitive needs: No Hearing needs: No Vision needs: No Questionnaire Thrive Questionnaire Date Thrive assessed: 09/30/24 I am a: Patient What is your living situation today?: I have a steady place to live Within the past 12 months, did the food you bought not last and you didn't have the money to get more?: Never true Within the past 12 months, did you worry whether your food would run out before you got money to buy more?: Never true Do you have trouble paying for medicines?: No Do you have trouble getting transportation to medical appointments?: No Do you have trouble paying your heating and electricity bill?: No Do you have trouble taking care of your child, family member or friend?: No Do you have trouble with day-to-day activities such as bathing, preparing meals, shopping, managing finances, etc.?: No Are you currently unemployed and looking for a job?: No Are you interested in more education?: Yes Please select the resources that you would like help with: None Currently or been in a relationship where the following occur: No concerns reported THRIVE Score: 0 LILIANE-7 AMB Questionnaire LILIANE-7 Date LILIANE - 7 assessed: 11/07/24 Source: Developed by Drs. Shayan Dover, Anum Ojeda, Chidi Jett and colleagues, with an educational mian from [employer]. Review of Systems Const Denies headache(s) Eyes Denies loss of vision ENT Denies vertigo, Denies dizziness, Denies headache(s) and Denies sore throat Card Denies chest pain, Denies leg edema and Denies lightheadedness Resp Denies cough, Denies hemoptysis and Denies wheezing GI Denies abdominal pain, Denies melena, Denies constipation, Denies diarrhea and Denies vomiting Denies dysuria, Denies urinary frequency and Denies urinary urgency Musc Denies arthralgias, Denies joint swelling, Denies numbness and Denies tingling Neuro Denies Abnormal speech present, Denies behavioral changes, Denies vertigo, Denies dizziness, Denies headache(s), Denies loss of vision, Denies memory loss, Denies numbness and Denies tingling Psych Denies anxiety, Denies behavioral changes, Denies depression, Denies memory loss and Denies panic attacks Audie/Lymph Denies easy bleeding and Denies easy bruising Aller/Immun Denies wheezing Physical exam (Primary Care) Vital Signs: Last Vital Signs Temp 97.3 F 01/18/25 14:52 Pulse 69 01/18/25 14:52 BP 130/60 01/18/25 14:52 Pulse Ox 97 01/18/25 14:52 Oxygen Delivery Method Room Air 01/18/25 14:52 BMI result Body Mass Index 24.2 Tobacco/Smoking Status: Tobacco use Status Tobacco use date assessed 01/18/25 01/18/25 14:56 Patient Tobacco Use Status Current everyday Tobacco 01/18/25 14:56 Tobacco use type Cigarette 01/18/25 14:56 e-Cigarette/Vaping Use Never Used 01/18/25 14:56 Are you ready to quit: No Tobacco cessation counseling provided: Yes Items discussed: Nicotine replacement Relapse Prevention: discussed the importance of a supportive environment, discussed negative mood or depression after quitting, weight gain after smoking is common and discussed dietary, exercise and/or lifestyle changes Number of minutes spent counselin CPT code: 71190 - 4-10 Minutes Thrive Assessment: Date of Thrive Assessment Date Thrive assessed 09/30/24 01/18/25 14:56 Currently or been in a relationship where the following occur: No concerns reported Const General: healthy appearing, no acute distress, alert and awake Nutritional Appearance: well nourished Orientation/consciousness: oriented to person, oriented to place and oriented to time HENMT Ears: TM's normal bilaterally General nose exam: Normal nasal mucous membranes and turbinates present Eyes Conjunctivae: conjunctivae normal Sclerae: sclerae normal Pupils: Equal, round and reactive pupils present Neck Neck: Yes no lymphadenopathy and Yes no JVD Thyroid: Thyroid normal Carotids: no bruits Resp Effort & Inspection: normal respiratory effort and not tachypneic Auscultation: no crackles, no rales, no rhonchi and no wheezes Cardio Rate: regular rate Rhythm: regular rhythm Heart sounds: no murmurs and normal S1 and S2 GI Palpation (GI): Soft to palpation, nontender, no hepatomegaly and no splenomegaly Auscultation: normal bowel sounds Skin General skin exam: no rashes or lesions noted and dry skin Neuro General: oriented to person, oriented to place and oriented to time Cranial nerves: Yes Equal, round and reactive pupils present Speech: No Abnormal speech present Gait exam (Neuro): Normal gait present Motor exam (neuro): no tremor noted Extrem Right upper extremity: full ROM Left upper extremity: full ROM Right lower extremity: full ROM; no edema Left lower extremity: full ROM; no edema Psych Mental Status: mental status grossly normal Speech and movement: Normal speech and movement present Affect: normal affect Attitude: cooperative Thought process: Normal thought process present Coding Level of Care Code Est Pt Level 4 (51662) Diagnoses Mixed obsessional thoughts and acts F42.2 Obsessive-compulsive disorder type: mixed obsessional thoughts and acts Itch L29.9 Severe episode of recurrent major depressive disorder, with psychotic features F33.3 Active/Remission status: currently active Depression Type: major depressive disorder Major depression episode severity: severe Major depression recurrence: recurrent Psychotic features: with psychotic features Polysubstance abuse F19.10 Mixed hyperlipidemia E78.2 Hyperlipidemia type: mixed hyperlipidemia Generalized anxiety disorder F41.1 Tobacco dependence F17.200 Additional Codes Vital Signs *Quality* - CPT code: 28847 - 4-10 Minutes ([id number]) Assessment & Plan Assessment & Plan (1) OCD (obsessive compulsive disorder): Comment: Psychiatry [facility]- Psych wellness group once a month, therapist Marco once a week (06/2023) Code(s): F42.9 - Obsessive-compulsive disorder, unspecified Category: Medical Qualifiers: Obsessive-compulsive disorder type: mixed obsessional thoughts and acts Qualified Code(s): F42.2 - Mixed obsessional thoughts and acts Plan: Seeing a mental health therapist for his OCD. Has started on Prozac for his OCD, still waiting and for noticeable effect. (2) Itch: Code(s): L29.9 - Pruritus, unspecified Category: Medical Plan: The patient experiences significant itchiness due to pet allergies. He will try hydroxyzine to manage the symptoms. (3) Depression: Code(s): F32.A - Depression, unspecified Category: Medical Qualifiers: Active/Remission status: currently active Depression Type: major depressive disorder Major depression episode severity: severe Major depression recurrence: recurrent Psychotic features: with psychotic features Qualified Code(s): F33.3 - Major depressive disorder, recurrent, severe with psychotic symptoms Plan: He is seeing a psychiatrist who is managing his medications. He is also seeing a mental health therapist for particularly his OCD. He still reports feeling depressed though not to the level of depressed mood he was previously. He has stopped his Latuda, lithium , olanzapine and mirtazapine to which he feels was not effective (4) Polysubstance abuse: Comment: history of heroin and cocaine abuse, last used 2020 Code(s): F19.10 - Other psychoactive substance abuse, uncomplicated Category: Medical Plan: He reports he continues to be sober from street opiates. Continues on Sublocade injections through her local clinic (5) Hyperlipidemia: Code(s): E78.5 - Hyperlipidemia, unspecified Category: Medical Qualifiers: Hyperlipidemia type: mixed hyperlipidemia Qualified Code(s): E78.2 - Mixed hyperlipidemia Plan: Will recheck his fasting lipid panel since he has lost significant amount of weight since last office visit particularly due to stopping his antipsychotic medication. Will recheck fasting labs. (6) Generalized anxiety disorder: Code(s): F41.1 - Generalized anxiety disorder Category: Medical Plan: Patient's LILIANE-7 score positive for moderate to severe anxiety which has been existing condition for him. He will be following up with Psychiatry in near future. He continues on diazepam which has helpful for anxiety. (7) Tobacco dependence: Code(s): F17.200 - Nicotine dependence, unspecified, uncomplicated Category: Medical Plan: Patient does admit to smoking 10 cigarettes per day. Offered him nicotine replacement today though declines. No interest at this time to quit smoking. Medications: New hydroxyzine HCl 10 mg PO BID 60 tabs 1RF 30 days F41.9 - Anxiety disorder, unspecified, L29.9 - Pruritus, unspecified Refilled cyclobenzaprine 10 mg PO BID 28 tabs 0RF 14 days S43.431D - Superior glenoid labrum lesion of right shoulder, subsequent encounter meloxicam 15 mg PO DAILY 14 tabs 0RF 14 days S43.431D - Superior glenoid labrum lesion of right shoulder, subsequent encounter
[2025-01-18 14:52] VITALS: BP 130/60; PULSE 69; TEMP 36.3; O2SAT 97; BMI 24.2
== END 2025-01-18 15:15 | disposition home or self-care (01) ==
LOC: HO.HMCH 14:46
PROVIDERS: PCP Physician Assistant; Visit Provider Physician Assistant
DX: F42.2 Mixed obsessional thoughts and acts (principal); L29.9 Pruritus, unspecified; F33.3 Major depressive disorder, recurrent, severe with psychotic symptoms; F19.10 Other psychoactive substance abuse, uncomplicated; E78.2 Mixed hyperlipidemia; F41.1 Generalized anxiety disorder; F17.200 Nicotine dependence, unspecified, uncomplicated

== ENCOUNTER → 2025-01-18 14:46 | Outpatient (BNVA) | payer OTHER, SELFPAY | PROVIDERS: PCP Physician Assistant; Visit Provider Physician Assistant | DX: F42.2 Mixed obsessional thoughts and acts (principal); F42.9 Obsessive-compulsive disorder, unspecified; F11.20 Opioid dependence, uncomplicated; L29.9 Pruritus, unspecified; F33.3 Major depressive disorder, recurrent, severe with psychotic symptoms; F19.10 Other psychoactive substance abuse, uncomplicated; E78.2 Mixed hyperlipidemia; F41.1 Generalized anxiety disorder; F17.210 Nicotine dependence, cigarettes, uncomplicated; E78.5 Hyperlipidemia, unspecified; S43.431D Superior glenoid labrum lesion of right shoulder, subsequent encounter; X58.XXXD Exposure to other specified factors, subsequent encounter | CPT/HCPCS: 99212 ==

== ENCOUNTER 2025-01-26 12:45 | Outpatient (AMB) | payer OTHER, SELFPAY ==
--- NOTE | 2025-01-26 12:46 | MHC.OFFVIS ---
Intake Visit Reasons: OV- Superior glenoid labrum lesion of R shoulder Intake Note: Hira is a 38 year old right hand dominant male who present today for a follow up of his right shoulder SLAP tear s/p injury in November of 2022. Since he was last seen, he has met with Pain Management who provided him with a Diagnostic Injection on 09/22/23 and is booked for a Right Steroid injection on 02/07/25. Today he is looking to discuss ongoing treatment plan following this injection in the setting that is does or does not work . Allergies codeine Allergy (Severe, Verified 01/18/25 15:04) Stomach Upset HPI HPI OV- Superior glenoid labrum lesion of R shoulder: Details: Hira is a 38 year old right hand dominant male who present today for a follow up of his right shoulder SLAP tear s/p injury in November of 2022. Since he was last seen, he has met with Pain Management who provided him with a Diagnostic Injection on 09/22/23 and is booked for a Right Steroid injection on 02/07/25. Today he is looking to discuss ongoing treatment plan following this injection in the setting that is does or does not work . He has most of his pain in the superior periscapular region. He was diagnosed with a SLAP tear but his shoulder pain comes and goes and is located more in his back. [facility] Medical History Hospital discharge follow-up Encounter for lithium monitoring Overweight (BMI 25.0-29.9) History of hepatitis C Testicular cancer Polysubstance abuse Depression Surgical History History of orchiectomy Hx of cholecystectomy Family History Father Diabetes Mother No problems noted. Other Substance use disorder Social History Household Members: Other Household Members Other:: Mother Housing: House Do you presently have visiting nurse or other home services: No Alcohol intake: current Alcohol intake frequency: a few times a week Alcohol type: beer and hard liquor Comment: once Q 2 weeks 3 drinks Patient Tobacco Use Status: Current everyday Tobacco user Tobacco use type: Cigarette Cigarette Packs Per Day: 0.5 Cigarettes Per Day: 7 Years Smoked: roll - 8 aday - e-Cigarette/Vaping Use: Never Used Second Hand Smoke Exposure: Yes Substance Use Type: Crack/Cocaine and Caffiene service: No Current occupational status: employed Current occupation: [employer] Sexual orientation: Straight/Heterosexual Cognitive needs: No Hearing needs: No Vision needs: No Physical Exam Extrem Other: Full range of motion right shoulder. Mild discomfort with [place]'s testing but still negative study. Normal shoulder exam. There is tenderness to palpation in the immediate periscapular region superiorly on the medial border of the scapula. Results Reviewed Results Reviewed: I personally reviewed the MR images. MRI from 18 months ago suggest possible type 2 slap tear. Otherwise unremarkable. Assessment & Plan Assessment & Plan (1) Type 2 superior labrum extending from anterior to posterior (SLAP) lesion of right shoulder: Code(s): S43.431A - Superior glenoid labrum lesion of right shoulder, initial encounter Category: Medical Qualifiers: Encounter type: subsequent encounter Qualified Code(s): S43.431D - Superior glenoid labrum lesion of right shoulder, subsequent encounter Plan: This is a pleasant 39-year-old gentleman who has MRI evidence of a SLAP tear from about 18 months ago but his current clinical presentation is not consistent with a SLAP tear. He is scheduled to undergo an intra-articular injection of his right shoulder. I would recommend that he undergo trigger point injections in his supero medial scapular border along the insertion of the rhomboids. (2) Pain of right scapula: Code(s): M89.8X1 - Other specified disorders of bone, shoulder Category: Medical Plan: I would recommend trigger point injections instead of intra-articular shoulder injection at this point in time. I have also referred him to our animal assistant. Coding Level of Care Code Est Pt Level 3 (53279) Complex EM visit Add On G2211 Diagnoses Type 2 superior labrum extending from anterior to posterior (SLAP) lesion of right shoulder, subsequent encounter S43.431D Encounter type: subsequent encounter Pain of right scapula M89.8X1
--- OUTSIDE RECORDS SUMMARY | 2025-01-26 13:23 | XMS_ITS | Clinical Summary ---
Author Organization [facility] Address [address] [place] [id number] Phone Care Team Providers Care Recruiting Team Lead Name Role Phone Zarina Villalobos Primary Care Prov ider Larissa Govea MD Unavailable [phone] Allergies Active Allergy Reactions Criticality Noted Date [...] B 12/16/2010 Hepatitis B, unspecified formulation 11/16/2010 INFLUENZA, SPLIT VIRUS, TRIVALENT W/ PRESERVATIV E IM 03/03/2012,08/08/2010 Influenza Quadrivalent Preservative Free IM 07/03 Pneumococcal polysaccharide PPSV23 03/03/2012 Tdap 03/03/2012 Social [...] Booster 03/03/2022 03/03/2012 COVID-19 VACCINE (2 - 2023-2 5 season) 2024 09/04/2020 HEPATITIS A VACCINES [...] Medical Devices Not on file Care Teams Recruiting Team Lead Relationship Specialty Start Date End Date Zarina Villalobos PA [address] [place] [id number] [email or web address] PCP - General 03/22/20 Larissa Govea MD [address] [place] [address] [email or web address] Primary Oncologist Medical Oncology 03/22/20 Additional Source Comments The information contained in this document represents components of the legal health record. It is not the complete legal health record.[facility]
== END 2025-01-26 13:57 | disposition home or self-care (01) ==
LOC: HO.HOS 12:46
PROVIDERS: PCP Physician Assistant; Visit Provider Orthopaedic Surgery
DX: S43.431D Superior glenoid labrum lesion of right shoulder, subsequent encounter (principal); M89.8X1 Other specified disorders of bone, shoulder
CPT/HCPCS: 99213

== ENCOUNTER → 2025-01-26 12:45 | Outpatient (BNVA) | payer OTHER, SELFPAY | PROVIDERS: PCP Physician Assistant; Visit Provider Orthopaedic Surgery | DX: M25.511 Pain in right shoulder (principal); F41.1 Generalized anxiety disorder; F33.2 Major depressive disorder, recurrent severe without psychotic features; F42.9 Obsessive-compulsive disorder, unspecified; S43.431D Superior glenoid labrum lesion of right shoulder, subsequent encounter | CPT/HCPCS: 99212 ==

== ENCOUNTER 2025-01-26 14:20 | Outpatient (AMB) | payer OTHER, SELFPAY ==
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
== END 2025-01-26 16:49 | disposition home or self-care (01) ==
LOC: HO.HOP 14:20
PROVIDERS: PCP Physician Assistant; Visit Provider Clinical Nurse Specialist Psychiatric/Mental Health
DX: F42.2 Mixed obsessional thoughts and acts (principal); F41.1 Generalized anxiety disorder; F33.2 Major depressive disorder, recurrent severe without psychotic features
CPT/HCPCS: 99214

== ENCOUNTER 2025-02-07 06:11 | Outpatient (REF) | payer OTHER, SELFPAY ==
--- OUTSIDE RECORDS SUMMARY | 2025-02-07 06:15 | XMS_ITS | Clinical Summary ---
Author Organization [facility] Address [address] [place] [id number] Phone Care Team Providers Care Analyst Food And Beverage Name Role Phone Zarina Villalobos Primary Care Prov ider Larissa Govea MD Unavailable [phone] Allergies Active Allergy Reactions Criticality Noted [...] you interested in more education? Not on marivn e 10/01/2022 Are you concerned about learning? [...] Medical Devices Not on file Care Teams Analyst Food And Beverage Relationship Specialty Start Date End Date Zarina Villalobos PA [address] [place] [id number] [email or web address] PCP - General 03/22/20 Larissa Govea MD [address] [place] [address] [email or web address] Primary Oncologist Medical Oncology 03/22/20 Additional Source Comments The information contained in this document represents components of the legal health record. It is not the complete legal health record.[facility]
[2025-02-07 09:03] LABS: MANUAL DIFF FLAG NO
[2025-02-07 09:53] LABS: Hematocrit 45.5 % (42.0-52.0); Hemoglobin 14.9 g/dl (14.0-18.0); Imm Gran Abs Auto 0.04 X10*3/uL (0.00-0.03); Imm Gran Pct Auto 0.4 % (0.0-0.4); Lymphocytes Absolute Auto 2.1 X10*3/uL (1.2-4.9); Mean Corpuscular HGB Conc 32.7 g/dl (31.0-36.0); Mean Corpuscular Hemoglobin 29.2 pg (27.0-33.0); Mean Corpuscular Volume 89.0 fL (80.0-98.0); NRBC Abs Auto 0.000 X10*3/uL (0.0-0.012); NRBC Pct Auto 0.0 /100WBC (0.0-0.2); Platelet Count 316 X10*3/uL (160-400); Red Blood Count 5.11 X10*6/uL (4.60-5.80); White Blood Count 9.4 X10*3/uL (4.8-10.8)
[2025-02-07 10:26] LABS: Lithium < 0.10 mmol/L (0.60-1.20)
[2025-02-07 10:47] LABS: Alanine Aminotransferase 28 U/L (0-40); Albumin Level 4.7 g/dL (3.5-5.0); Alkaline Phosphatase 76 U/L (39-117); Anion Gap 13 (12-20); Aspartate Amino Transferase 24 U/L (5-37); Blood Urea Nitrogen 17 mg/dL (9-16); Calcium 9.5 mg/dL (8.4-10.2); Carbon Dioxide 32 mmol/L (22-29); Chloride 100 mmol/L (96-108); Cholesterol 214 mg/dL (<200); Estimated Glomerular Filt Rate > 60; HDL Cholesterol 47 mg/dL (>40); Potassium 4.6 mmol/L (3.3-5.1); Sodium 140 mmol/L (135-145); Total Protein 7.2 g/dL (6.5-8.0); Triglycerides 140 mg/dL (<150)
== END 2025-02-07 06:12 | disposition home or self-care (01) ==
LOC: HO.LAB 06:11
PROVIDERS: Clinical Nurse Specialist Psychiatric/Mental Health; Physician Assistant Medical; Absent Provider Physician Assistant; PCP Physician Assistant; Visit Provider Anesthesiology
DX: Z00.00 Encounter for general adult medical examination without abnormal findings (principal); M24.811 Other specific joint derangements of right shoulder, not elsewhere classified; M24.111 Other articular cartilage disorders, right shoulder; M25.511 Pain in right shoulder; M79.18 Myalgia, other site; E78.2 Mixed hyperlipidemia; Z51.81 Encounter for therapeutic drug level monitoring; F33.3 Major depressive disorder, recurrent, severe with psychotic symptoms; E55.9 Vitamin D deficiency, unspecified; Z79.899 Other long term (current) drug therapy
CPT/HCPCS: 20553; 36415; 80053; 80061; 80178; 82306; 84443; 85025; 99212; J2795; J3301

== ENCOUNTER 2025-02-07 07:59 | Outpatient (AMB) | payer OTHER, SELFPAY ==
--- NOTE | 2025-02-07 08:06 | MHC.OFFVIS ---
Vital Signs 02/07/25 08:07 Height 5 ft 6 in Weight 150 lb BMI 24.2 BP 142/87 H Blood Pressure Location Lt brachial Position Sitting Pulse 61 Pulse Source Pulse Oximeter Pulse Oximetry (%) 99 Oxygen Delivery Method Room Air Intake Visit Reasons: (R) Rhomboid minor, rhomoid major TPI Client Relationship Executive Required: No Allergies codeine Allergy (Severe, Verified 01/18/25 15:04) Stomach Upset HPI Comments Details: Hira is back in my office to discuss the results of my conversation with Dr. Oates. In the past agnostic intra-articular shoulder injection into the right shoulder alleviated his pain completely 100% for 9 months. However now he complains on pain not in the shoulder but rather in the projection of the rhomboid muscles on the right. Orthopedic surgeon Dr. Oates suggested that we would do trigger point injection into the patient's rhomboid muscles. I explained this to the patient. Risks and benefits were explained to the patient. The procedure was performed see description of the procedure as below. Prior: very pleasant 38 years old gentleman who presents in my office with complains on pain in the right posterior shoulder blade with radiation of the pain into the right upper extremity. He reports no pain in the neck. He reports that pain started in November 2022 when he slept [place], he wanted to become a monk but later on reconsider that. He reports the best relief from his pain he receives when he puts the tennis ball against the area between his thoracic spine and right shoulder blade and rotate this ball against the wall. He had x-ray of the shoulder area and CT scan of the shoulder area which is not available for me those were done in [facility]. He had physical therapy for his pain he has not sure whether he received benefit from this he received massage therapy with minimal improvement and he tried acupuncture without any improvement. He never received any injections. Past medical history significant for fatigue obsessive-compulsive disorder history of alcohol and illicit drug problems history of hepatitis-C treated with interferon and history of digestive problems. 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 Other Substance use disorder Social History Household Members: Other Household Members Other:: Mother Housing: House Do you presently have visiting nurse or other home services: No Alcohol intake: current Alcohol intake frequency: a few times a week Alcohol type: beer and hard liquor Comment: once Q 2 weeks 3 drinks Patient Tobacco Use Status: Current everyday Tobacco user Tobacco use type: Cigarette Cigarette Packs Per Day: 0.5 Cigarettes Per Day: 7 Years Smoked: roll - 8 aday - e-Cigarette/Vaping Use: Never Used Second Hand Smoke Exposure: Yes Substance Use Type: Crack/Cocaine and Caffiene service: No Current occupational status: employed Current occupation: [employer] Sexual orientation: Straight/Heterosexual Cognitive needs: No Hearing needs: No Vision needs: No Review of Systems Const All systems reviewed & are unremarkable except as noted in HPI and below Physical Exam Vital Signs: Last Vital Signs Pulse 61 02/07/25 08:07 BP 142/87 H 02/07/25 08:07 Pulse Ox 99 02/07/25 08:07 Oxygen Delivery Method Room Air 02/07/25 08:07 BMI result Body Mass Index 24.2 Const General: no acute distress, alert and awake Orientation/consciousness: patient oriented x3 HEENT Head: Yes normocephalic and Yes atraumatic Eyes EOM: EOMs intact bilaterally Neck Other: Full range of motion of the cervical spine. Flexing head forward and flexing had backwards do not affect the pain in the shoulder or in the arm. Rotating head side ways or tilting had sideways also does not affect the pain. Lhermitte test is negative. Spurling test is negative. Axial extension is negative. No tenderness on palpation in paraspinal spinal region cervical spine. Tenderness on palpation in the projection of right rhomboid muscle more of the major rhomboid and less on the minor rhomboid side. Valsalva maneuver is negative for pain increase. Neck: Yes full ROM Resp Effort & Inspection: normal respiratory effort and able to speak in complete sentences Cardio Jugular venous distension: no JVD Skin General skin exam: turgor normal Rashes: no rashes Neuro General: patient oriented x3 Extrem Other: Full ROM 4+/5 EC + Mcint[facility] Appearance: grossly normal Affect: normal affect Attitude: cooperative Assessment & Plan Assessment & Plan (1) Internal derangement of right shoulder: Code(s): M24.811 - Other specific joint derangements of right shoulder, not elsewhere classified Category: Medical (2) Myofascial pain syndrome: Code(s): M79.18 - Myalgia, other site Category: Medical (3) Degenerative tear of glenoid labrum of right shoulder: Code(s): M24.111 - Other articular cartilage disorders, right shoulder Category: Medical (4) Right shoulder pain: Code(s): M25.511 - Pain in right shoulder Category: Medical Plan: Trigger point injection latissimus Gant, rhomboid major and rhomboid muscle on the right,. Informed consent was thoroughly explained to the patient risks and benefits were explained. The patient was positioned sitting on the examination bed and posterior back of the patient was palpated. Most painful area was marked with the blue marker. After that the back of the patient was prepped with ChloraPrep and sterilely obtained mixture of ropivacaine 0.5% and Kenalog 40 mg total 10 mL was injected into the position of the major rhomboid muscle, minor rhomboid muscle as well as latissimus dorsi muscle. The patient tolerated procedure well. After needle was taken out sterile Band-Aid was applied. Plan Initially discussion with Hira was held and my intention was to perform repeat intra-articular right shoulder steroid injection. The diagnostic intra-articular shoulder injection relieved the pain of the patient for 9 months. However patient came back with posterior paraspinal pain syndrome. Orthopedic surgeon Dr. Oates was right fully pointed out that his pain less likely related to the shoulder and more to the myofascial pain syndrome of the rhomboid muscles. I offered today on recommendation of Dr. Oates to perform therapeutic trigger point injection into the rhomboid muscles. See description of the procedure as above. Orders: Orders FL guidance in treatment room Today M25.511 - Pain in right shoulder Coding Level of Care Code Est Pt Level 3 (33914) Procedure Only Diagnoses Internal derangement of right shoulder M24.811 Myofascial pain syndrome M79.18 Degenerative tear of glenoid labrum of right shoulder M24.111 Right shoulder pain M25.511
[2025-02-07 08:07] VITALS: BP 142/87; PULSE 61; O2SAT 99; BMI 24.2
== END 2025-02-07 08:42 | disposition home or self-care (01) ==
LOC: HO.PMCPRC 07:59
PROVIDERS: PCP Physician Assistant; Visit Provider Anesthesiology
DX: M24.811 Other specific joint derangements of right shoulder, not elsewhere classified (principal); M24.111 Other articular cartilage disorders, right shoulder; M25.511 Pain in right shoulder; M79.18 Myalgia, other site
CPT/HCPCS: 20553; 99213

== ENCOUNTER 2025-04-06 13:30 | Outpatient (AMB) | payer OTHER, SELFPAY ==
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
--- OUTSIDE RECORDS SUMMARY | 2025-04-06 16:24 | XMS_ITS | Clinical Summary ---
Author Organization [facility] Address [address] [place] [id number] Phone Care Team Providers Care Furniture Servicer Name Role Phone Zarina Villalobos Primary Care Prov ider Larissa Govea MD Unavailable [phone] Allergies Active Allergy Reactions Criticality Noted [...] DEPRESSION SCREENING 1996 SMOKING Hx and SMOKELESS TOBACCO SCREENING 1997 HEPATITIS C SCREENING 2002 HIV ONE-TIME SCREENING (18-6 5 YEARS) 2002 PNEUMOCOCCAL VACCINES (0-49 years) (2 of 2 - PCV) 03/03/2013 03/03/2012 Adult Td,Tdap Booster 03/03/2022 03/03/2012 INFLUENZA VACCINE (#1) 2024 , 03/03/2012, 08/08/2010 COVID-19 VACCINE (2 - 2024-2 6 season) 2025 09/04/2020 HEPATITIS A VACCINES Aged Out No [...] Medical Devices Not on file Care Teams Furniture Servicer Relationship Specialty Start Date End Date Zarina Villalobos PA [address] [place] [address] [email or web address] PCP - General 03/22/20 Larissa Govea MD [address] [place] [email or web address] Primary Oncologist Medical Oncology 03/22/20 Additional Source Comments The information contained in this document represents components of the legal health record. It is not the complete legal health record.[facility]
== END 2025-04-06 13:56 | disposition home or self-care (01) ==
LOC: HO.HOP 13:30
PROVIDERS: PCP Physician Assistant; Visit Provider Clinical Nurse Specialist Psychiatric/Mental Health
DX: F42.2 Mixed obsessional thoughts and acts (principal); F41.1 Generalized anxiety disorder; F33.2 Major depressive disorder, recurrent severe without psychotic features
CPT/HCPCS: 99214

== ENCOUNTER → 2025-04-06 13:30 | Outpatient (BNVA) | payer OTHER, SELFPAY | PROVIDERS: PCP Physician Assistant; Visit Provider Clinical Nurse Specialist Psychiatric/Mental Health | DX: F33.2 Major depressive disorder, recurrent severe without psychotic features (principal); F41.1 Generalized anxiety disorder; F42.9 Obsessive-compulsive disorder, unspecified | CPT/HCPCS: 99212 ==